=== PATIENT | female | born 1960 | race Caucasian/White ===

== ENCOUNTER 2020-01-13 08:55 | Inpatient (IN) | payer MEDICARE, MEDICAID, SELFPAY ==
[2020-01-13] VITALS (25 sets, daily range): BP systolic 100–147; BP diastolic 56–91; PULSE 96–110; RESP 17–27; TEMP 36.8–38.3; O2SAT 60–100
--- NOTE | ~2020-01-13 | XR_ITS ---
XR chest 1V portable 01/13/2020 09:44 Indication: Covid positive . Low oxygen saturations. Procedure: AP portable chest Comparison: Comparison to multiple prior studies sequentially, with oldest reviewed study dated 06/17. Findings: Bilateral mixed interstitial and airspace disease. No pleural effusion or pneumothorax. The re is atherosclerosis of the aorta. No acute osseous abnormality. Impression: 1: Mixed bilateral interstitial and airspace disease which may represents pneumonia or edema. Reviewed, dictated and finalized at location A. Impression: 1: Mixed bilateral interstitial and airspace disease which may represents pneum onia or edema.
--- NOTE | ~2020-01-13 | XR_ITS ---
EXAMINATION: XR chest 1V portable DATE: 01/21/2020 05:53 INDICATION: COVID positive. Hypoxia. Pulmonary infiltrates. TECHNIQUE: frontal view of the chest was obtained. COMPARISON: Chest radiograph dated 01/13/2020 FINDINGS: Diffuse increase in diffuse bilateral airspace opacities consistent with pneumonia. No pleural effusi on or pneumothorax. The cardiomediastinal silhouette is normal. Severe right glenohumeral osteoarthri tis. Mild lumbar levocurvature with moderate to severe spondylosis. IMPRESSION: 1. Diffuse bilateral airspace disease consistent with pneumonia with differential including pulmonary edema. Reviewed, dictated and finalized at location A. IMPRESSION: 1. Diffuse bilateral airspace disease consistent with pneumonia with differenti al including pulmonary edema.
--- NOTE | 2020-01-13 09:15 | ECG_ITS ---
Measurements Intervals [place] Rate: 64 P: 46 ME: 197 QRS: 128 QRSD: 97 T: 91 QT: 394 QTc: 408 Interpretive Statements SINUS RHYTHM RIGHT AXIS DEVIATION INCOMPLETE RIGHT BUNDLE BRANCH BLOCK BORDERLINE T WAVE ABNORMALITY- ANTERIOR LEADS BASELINE ARTIFACT- I, II, III, AVR, AVL, AVF, V1, V4-V6 BORDERLINE ECG Electronically Signed On 01-13-2020 10:17:57 CDT by Usman Roldan D.O.
--- NOTE | 2020-01-13 09:30 | PC.NURSE ---
Pt sent in from [facility] completely saturated in urine, depend brief was dark brown from urine saturation. Pt's gown wet from bottom of gown to nipple line all sheets and pads underneath patient are saturated and discolored with dark urine. This RN cleans patient up of urine, and give bed bath, with complete linen change. Pt has mottling on bottom, coccyx is red but blanches.
[2020-01-13 09:50] LABS: Basophils Percent Auto 0.1 % (0.2-1.2); Eosinophils Percent Auto 0.3 % (0-4.4); Hematocrit 36.3 % (37.0-47.0); Hemoglobin 11.8 g/dL (12.0-15.0); Immature Granulocyte Absolute 0.08 K/mm3 (0.00-0.031); Lymphocytes Absolute Auto 0.82 K/mm3 (0.9-3.2); Lymphocytes Percent Auto 10.3 % (18.3-44.2); Mean Corpuscular HGB Conc 32.5 g/dl (32-36); Mean Corpuscular Hemoglobin 29.6 pg (26-34); Mean Corpuscular Volume 91.2 fl (80-100); Mean Platelet Volume 11.5 fl (7.4-10.4); Monocytes Absolute Auto 0.7 K/mm3 (0.1-0.6); Monocytes Percent Auto 8.3 % (2.6-8.5); Neutrophils Absolute Auto 6.4 K/mm3 (1.3-6.7); Nucleated Red Blood Cells Perc 0.4 % (0.0-0.2); Platelet Count Result 324 k/mm3 (150-375); Red Blood Count 3.98 M/mm3 (4.2-5.4); Red Cell Distribution Width 13.5 % (11.5-14.5)
[2020-01-13 10:03] LABS: Lactic Acid 1.1 mmol/L (0.7-2.1)
[2020-01-13 10:04] LABS: Blood Urea Nitrogen 19 mg/dL (7-17); Calcium 8.7 mg/dL (8.4-10.2); Carbon Dioxide 23 mmol/L (22-30); Chloride 105 mmol/L (98-107); Estimated Glomerular Filt Rate > 60; Glucose 131 mg/dL (65-105); Potassium 3.6 mmol/L (3.4-5.0); Sodium 138 mmol/L (137-145)
[2020-01-13 10:18] LABS: Alanine Aminotransferase 33 U/L (4-35); Alkaline Phosphatase 92 U/L (38-126); Aspartate Amino Transferase 18 U/L (14-36); Bilirubin,Total 0.7 mg/dL (0.2-1.3); Lipase 96 U/L (23-300)
[2020-01-13 10:24] LABS: Add Urine Microscopic? YES; Appearance Urine Cloudy (Clear); Bacteria Urine 4+ /hpf; Bilirubin Urine Negative (Negative); Blood Urine 2+ (Negative); Color Urine Amber (Yellow); Glucose Urine UA Negative (Negative); Ketones Urine Trace mg/dL (Negative); Leukocyte Esterase Ur 3+ LEU/UL (Negative); Mucus Urine Rare /lpf; Nitrate Urine Positive (Negative); Protein Urine 3+ mg/dL (Negative); RBC Urine 21-50 /hpf (0-2); Squamous Epithelial Cell Urine Many /hpf (Few); WBC Urine >75 /hpf
--- NOTE | 2020-01-13 10:59 | PC.NURSE ---
This RN called [facility] and spoke to Erna, requesting patient's chart, meds, past medical history and documentation about postive covid-19 testing. Erna stated that she will talk to the RN and have her fax the information to us. This RN gave Erna our fax number.
--- NOTE | 2020-01-13 11:23 | PC.NURSE ---
Unable to verify patient med rec and past medical history, waiting for paperwork from [facility]. This RN was able to verify allergies with AKI Aguirre from [facility] via phone. Carla states that they will send paperwork via fax.
--- NOTE | 2020-01-13 11:44 | PC.NURSE ---
This RN rounded on patient and found Pt removed NC O2 and mask, patient sitting on room air at 60% w/ respirations of 33, patient placed back on 4L O2 by this RN, EDP was notified. EDP gave verbal order to get patient's O2 above 90%. O2 bumped to 6L NC. Pt sitting at 90% on 6L
--- NOTE | 2020-01-13 11:58 | ED.SOB ---
HPI - SOB/Dyspnea General Chief Complaint: Shortness of Breath/Dyspnea Stated Complaint: LOW OXYGEN SATURATION Time Seen by Provider: 01/13/20 09:13 History of Present Illness HPI Narrative: Patient is a 59-year-old female with history of left-sided weakness and expressive aphasia who presents with shortness of breath and hypoxia. Patient is from [facility]. She has history of being COVID positive. And is unknown what medication she has been receiving for this. Patient is a DNR and would not get intubated if she was in respiratory failure. She has a new O2 requirement of 4 L. Patient with O2 sats in the 70s without supplemental oxygen. Related Data Allergies Allergy/AdvReac Type Severity Reaction Status Date / Time Sulfa (Sulfonamide Allergy Mild TOPICAL Verified 01/13/20 11:11 Antibiotics) APPLICATION: REDNESS AND EDEMA OF AREA/FACE Review of Systems Review of Systems: ROS unobtainable: Yes unobtainable due to medical condition PMFSH Past Medical History Medical History (Updated 01/13/20 @ 16:43 by Salvador Zarate MD) COPD (chronic obstructive pulmonary disease) Hyperlipidemia Hypertension Seizures Stroke Surgical History Surgical History (Updated 01/13/20 @ 12:04 by Salvador Zarate MD) History of gastrostomy tube placement Social History Social History (Updated 01/13/20 @ 12:04 by Salvador Zarate MD) Social History: Lives in a retirement. Gender identity (if verbalized by the patient): Female Exam Narrative: Exam Narrative: GENERAL: Chronically ill-appearing, well-nourished, and in no acute distress. HEAD: Normocephalic, atraumatic. EYES: PERRL and EOMI. ENT: Mucous membranes moist. CHEST: Clear to auscultation. No respiratory distress. HEART: Regular rate and rhythm. Normal peripheral pulses. ABDOMEN: Soft, nontender, nondistended EXTREMITIES: Spastic left-sided hemiparesis with contractures left upper extremity. Moves right side well. SKIN: Warm, dry, no rash. NEURO: Awake and alert, expressive aphasia, will shake head yes and no to answer questions. Left-sided hemiparesis Course Course Emergency Course: Discussed case with Dr. Black who is caring for the patient in the retirement facility. Recommends that the patient be admitted to the hospital for IV antibiotics as there is been no interventions performed since patient was found to be cocaine positive. Additionally there is unknown at this time when the patient tested positive. Patient be started on IV antibiotics for both UTI and COVID pneumonia. Hospitalist would like patient re-swab for COVID. Vital Signs Vital signs: Vital Signs Temperature 99.8 F H 01/13/20 09:00 Pulse Rate 110 H 01/13/20 09:00 Respiratory Rate 22 H 01/13/20 09:00 Blood Pressure 141/56 H 01/13/20 09:00 Pulse Oximetry 82 L 01/13/20 09:00 Temperature 98.2 F 01/13/20 15:05 Pulse Rate 100 01/13/20 15:05 Respiratory Rate 200 H 01/13/20 15:05 Blood Pressure 131/91 H 01/13/20 15:05 Pulse Oximetry 100 01/13/20 15:05 MDM - SOB/Dyspnea Lab Data Result diagrams: 01/13/20 09:34 01/13/20 09:34 Labs: Lab Results 01/13/20 01/13/20 01/13/20 Range/Units 09:33 09:34 09:34 WBC 8.0 (4.5-10.0) K/mm3 RBC 3.98 L (4.2-5.4) M/mm3 Hgb 11.8 L (12.0-15.0) g/dL Hct 36.3 L (37.0-47.0) % MCV 91.2 (80-100) fl MCH 29.6 (26-34) pg MCHC 32.5 (32-36) g/dl RDW 13.5 (11.5-14.5) % Plt Count 324 (150-375) k/mm3 MPV 11.5 H (7.4-10.4) fl Immature Gran % (Auto) 1.0 H (0-0.5) % Neut % (Auto) 80.0 H (45.5-73.1) % Lymph % (Auto) 10.3 L (18.3-44.2) % [place] % (Auto) 8.3 (2.6-8.5) % Eos % (Auto) 0.3 (0-4.4) % Baso % (Auto) 0.1 L (0.2-1.2) % Lymph # (Auto) 0.82 L (0.9-3.2) K/mm3 [place] # (Auto) 0.7 H (0.1-0.6) K/mm3 Eos # (Auto) 0.0 (0-0.3) K/mm3 Baso # (Auto) 0.0 (0.0-0.1) K/mm3
--- NOTE | 2020-01-13 12:36 | PC.NURSE ---
Patient removed O2 again and right hand IV. Pt sitting in room with 2 puddles of blood on the floor, gown and arms. Pt cleaned of the blood, linens changed, bleeding stopped and repositioned in bed.
[2020-01-13 12:54] LABS: Base Excess ABG -2.7 mEq/l (+/-2.0); Carboxyhemoglobin 0.3 % THb (0-2.0); Fractional Inspired Oxygen 44 %; HCO3 ABG 20.7 mEq/l (22.0-26.0); Methemoglobin ABG 0.3 %THb (0-1.5); Oxygen Content ABG 16.3 %vol (16.0-22.0); Oxygen Saturation ABG 93.5 % (95.0-100.0); Oxyhemoglobin 91.7 % THb (90.0-100.0); PCO2 ABG 31.8 mmHg (35.0-45.0); PO2 ABG 64.5 mmHg (80.0-100.0); PO2 FiO2 Ratio Arterial Blood 1.47 %; Reduced Hemoglobin 7.7 %THb (0-5.0); Total Hemoglobin 12.6 g/dL (12.0-18.0); pH ABG 7.432 (7.350-7.450)
[2020-01-13 12:55] LABS: Device NASAL CANNULA; Modified Allen's Test Pass; Site Drawn RIGHT RADIAL
--- NOTE | 2020-01-13 13:48 | PC.NURSE ---
Pt 80% on 6L NC, titrated to 10L HFNC with saturation of 87%. Switched to 15L NRB and is currently satting 92%
--- NOTE | 2020-01-13 13:55 | PC.NURSE ---
This RN updated by Katerina PRABHAKAR, patient's oxygen saturation dropped to 80% on 6L NC. Pt was placed on 15L non rebreather by Katerina RN
--- NOTE | 2020-01-13 17:56 | ADMGEN ---
This patient, Margo Myrick, was admitted to [facility] S[facility] Room 329-01. Patient/family oriented to hospital policies and general routines including ID bracelet, bed and alarms, visiting hours, pain management, procedures, bathroom and other care routines, personal items, smoking policy, room service/diet, and visiting hours. Valuables list has been completed. Information on how to activate the Rapid Response Team has been discussed. Patient/Family are encouraged to report perceived risks to care and to ask questions if they do not understand what they are told or what they should do.
--- NOTE | 2020-01-13 19:28 | PM.IMHP ---
H&P: HPI History of Present Illness Chief complaint: covid 19/pnuemonia/hypoxia/UTI Narrative: This is a pleasantly demented 59 year old female with known history of COPD, HTN, and seizure disorder who presented to the hospital from [facility] with a complaint of shortness of breath and hypoxia. On arrival to the ER the patient was found to be saturating in the 70s without oxygen and was placed on a nonrebreather at 15L of oxygen. The patient is severely demented and on my encounter with her she keeps stating that she wants cheese . She does admit to feeling short of breath but denies any fever or cough. snf staff was contacted and confirmed that the patient did test positive for novel COVID-19 virus this past weekend. The patient also denies any dysuria, hematuria, abdominal pain, chest pain, wheezing, nausea, vomiting or diarrhea. In the ER tonight the patient was also found to have an abnormal urinalysis. The patient is a DNI code status and her CXR demonstrated miixed bilateral interstitial and airspace disease which may represents pneumonia or edema. No other valuable history is obtainable from the patient given her dementia. The patient has been retested in the ER today for Covid-19 despite just testing positive for Covid-19 this past weekend at the intermediate. Review of Systems Review of Systems: All systems reviewed & are unremarkable except as noted in HPI and below PMFSH Past Medical History Medical History COPD (chronic obstructive pulmonary disease) Hyperlipidemia Hypertension Seizures Stroke Surgical History Surgical History History of gastrostomy tube placement Social History Social History Social History: Lives in a intermediate. Smoking status: Former smoker Tobacco type: cigarettes Smoking end date: 10/01/14 Alcohol intake: former Substance use: never Gender identity (if verbalized by the patient): Female Spiritual care concerns: No Agree to blood products: Yes Comments Family medical history is unobtainable from the patient. Meds Home Medications and Allergies Home Medications Medication Instructions Recorded Confirmed Type acetaminophen [Tylenol 8 Hour] 650 mg PO Q6H PRN 01/13/20 01/13/20 History apixaban [Eliquis] 5 mg PO BID 01/13/20 01/13/20 History aripiprazole [Abilify] 5 mg PO DAILY 01/13/20 01/13/20 History atorvastatin [Lipitor] 40 mg PO HS 01/13/20 01/13/20 History baclofen 10 mg PO TID 01/13/20 01/13/20 History benzonatate 200 mg PO TID PRN 01/13/20 01/13/20 History bisacodyl 5 mg PO DAILY PRN 01/13/20 01/13/20 History calcium carbonate [Tums] 200 mg PO DAILY PRN 01/13/20 01/13/20 History dextromethorphan-guaifenesin 1 tablet PO Q12H PRN 01/13/20 01/13/20 History [Mucinex DM] dimethicone-petrolatum 1 applic TOPICAL QSHIFT 01/13/20 01/13/20 History docusate sodium [Colace] 100 mg PO BID 01/13/20 01/13/20 History duloxetine 60 mg PO DAILY 01/13/20 01/13/20 History escitalopram oxalate 5 mg PO DAILY 01/13/20 01/13/20 History fluticasone propionate 2 spray INTRANASAL DAILY 01/13/20 01/13/20 History guaifenesin 100 mg PO QID PRN 01/13/20 01/13/20 History ibuprofen 600 mg PO BID 01/13/20 01/13/20 History ibuprofen 600 mg PO TID PRN 01/13/20 01/13/20 History ipratropium-albuterol 3 ml INHALATION QID PRN 01/13/20 01/13/20 History levetiracetam [Keppra] 750 mg PO BID 01/13/20 01/13/20 History levothyroxine 25 mcg PO DAILY 01/13/20 01/13/20 History loratadine 10 mg PO DAILY 01/13/20 01/13/20 History multivitamin with minerals 1 tablet PO DAILY 01/13/20 01/13/20 History omeprazole 20 mg PO BID 01/13/20 01/13/20 History oxcarbazepine [Trileptal] 150 mg PO BID 04/28/20 04/28/20 History polyethylene glycol 3350 17 g PO DAILY 01/13/20 01/13/20 History polyvinyl alcohol [Artificial 1 drp OPHTHAL
[2020-01-13] MEDS: ALBUTEROL SULFATE (*SP) AEROSOL 1 PUFF 2 PUFF INHALATION (20:56)
[2020-01-13] MEDS: ALBUTEROL SULFATE (*SP) INHALER 1 PUFF (20:56)
[2020-01-13] MEDS: ACETAMINOPHEN 325 MG TABLET 650 MG PO (21:38)
[2020-01-13] MEDS: levETIRAcetam 250 MG TABLET 750 MG PO (21:39)
[2020-01-13] MEDS: SENNOSIDES 8.6 MG TABLET PO (21:39)
[2020-01-13] MEDS: BACLOFEN 10 MG TABLET PO (21:39)
[2020-01-13] MEDS: PANTOPRAZOLE 40 MG TABLET PO (21:39)
[2020-01-13] MEDS: TRAMADOL HCL 50 MG TABLET PO (21:39)
[2020-01-13] MEDS: OXcarbazepine 150 MG TABLET PO (21:39)
[2020-01-13] MEDS: ATORVASTATIN 40 MG TABLET PO (21:39)
[2020-01-13] MEDS: APIXABAN 5 MG TABLET PO (21:39)
[2020-01-13] MEDS: DOCUSATE SODIUM 100 MG CAPSULE PO (21:39)
[2020-01-14] VITALS (20 sets, daily range): BP systolic 105–140; BP diastolic 52–86; PULSE 92–106; RESP 18–22; TEMP 37–37.6; O2SAT 76–98
[2020-01-14] MEDS: BACLOFEN 10 MG TABLET PO ×3 (05:51→22:06)
[2020-01-14] MEDS: LEVOTHYROXINE SODIUM 25 MCG TABLET PO (05:52)
[2020-01-14 06:07] LABS: Basophils Percent Auto 0.1 % (0.2-1.2); Eosinophils Percent Auto 0.3 % (0-4.4); Hematocrit 35.3 % (37.0-47.0); Hemoglobin 11.2 g/dL (12.0-15.0); Immature Granulocyte Absolute 0.08 K/mm3 (0.00-0.031); Immature Granulocyte Percent A 0.9 % (0-0.5); Lymphocytes Absolute Auto 0.96 K/mm3 (0.9-3.2); Lymphocytes Percent Auto 10.4 % (18.3-44.2); Mean Corpuscular HGB Conc 31.7 g/dl (32-36); Mean Corpuscular Hemoglobin 29.6 pg (26-34); Mean Corpuscular Volume 93.4 fl (80-100); Mean Platelet Volume 10.5 fl (7.4-10.4); Monocytes Absolute Auto 0.5 K/mm3 (0.1-0.6); Monocytes Percent Auto 5.9 % (2.6-8.5); Neutrophils Absolute Auto 7.6 K/mm3 (1.3-6.7); Neutrophils Percent Auto 82.4 % (45.5-73.1); Platelet Count Result 417 k/mm3 (150-375); Red Blood Count 3.78 M/mm3 (4.2-5.4); Red Cell Distribution Width 13.8 % (11.5-14.5); White Blood Count 9.2 K/mm3 (4.5-10.0)
[2020-01-14 06:20] LABS: Blood Urea Nitrogen 17 mg/dL (7-17); Calcium 8.7 mg/dL (8.4-10.2); Carbon Dioxide 26 mmol/L (22-30); Chloride 106 mmol/L (98-107); Estimated Glomerular Filt Rate > 60; Glucose 110 mg/dL (65-105); Potassium 3.2 mmol/L (3.4-5.0); Sodium 140 mmol/L (137-145)
[2020-01-14] MEDS: DULOXETINE 60 MG CAPSULE.DR PO (08:30)
[2020-01-14] MEDS: APIXABAN 5 MG TABLET PO ×2 (08:30→20:08)
[2020-01-14] MEDS: DOCUSATE SODIUM 100 MG CAPSULE PO ×2 (08:30→17:20)
[2020-01-14] MEDS: ARIPIPRAZOLE 5 MG TABLET PO (08:30)
[2020-01-14] MEDS: ALBUTEROL SULFATE (*SP) AEROSOL 1 PUFF 2 PUFF INHALATION ×4 (08:30→19:10)
[2020-01-14] MEDS: POTASSIUM CHLORIDE 20 MEQ TABLET 40 MEQ PO (08:30)
[2020-01-14] MEDS: PANTOPRAZOLE 40 MG TABLET PO ×2 (08:31→20:09)
[2020-01-14] MEDS: polyethylene glycoL 3350 17 GM POWD.PACK PO (08:31)
[2020-01-14] MEDS: THERAPEUTIC MULTIVITAMINS/MINERALS TAB (*BKC) 1 TABLET PO (08:31)
[2020-01-14] MEDS: OXcarbazepine 150 MG TABLET PO ×2 (08:31→20:10)
[2020-01-14] MEDS: levETIRAcetam 250 MG TABLET 750 MG PO ×2 (08:32→20:09)
[2020-01-14] MEDS: LORATADINE 10 MG TABLET PO (08:33)
[2020-01-14] MEDS: ESCITALOPRAM OXALATE 5 MG TABLET PO (08:33)
[2020-01-14] MEDS: FLUTICASONE PROPIONATE 0.05% NA SPR 16 GM BTL (*BKC) 2 SPRAY NASAL (08:33)
[2020-01-14] MEDS: TRAMADOL HCL 50 MG TABLET PO ×2 (08:37→20:08)
--- NOTE | 2020-01-14 14:05 | PM.IMPN ---
Progress Note: A&P Assessment and Plan (1) Acute respiratory failure with hypoxia: Code(s): J96.01 - Acute respiratory failure with hypoxia Status: Acute Assessment and Plan: Appears to be secondary to Viral COVID-19 Pneumonia Continue supportive care with non-rebreather mask Wean is possible to 15 L by high-flow cannula Discussed grim prognosis with daughterGloria on 01/13 She wishes to proceed with transfer to IMCU and BiPAP if mother deteriorates but if no improvement after that to transition to comfort care (2) Pneumonia: Qualifiers: Laterality: bilateral Lung location: unspecified part of lung Pneumonia type: due to unspecified organism Qualified Code(s): J18.9 - Pneumonia, unspecified organism Code(s): J18.9 - Pneumonia, unspecified organism Status: Acute Assessment and Plan: Appears to be secondary to viral COVID-19 virus. Continue supportive care. Continue oxygen therapy. (3) COVID-19 virus infection: Code(s): U07.1 - COVID-19 Status: Acute Assessment and Plan: Continue supportive care. Aerosol isolation (4) Normocytic anemia: Code(s): D64.9 - Anemia, unspecified Status: Acute Assessment and Plan: Duration unclear F/u lab (5) Abnormal urinalysis: Code(s): R82.90 - Unspecified abnormal findings in urine Status: Acute Assessment and Plan: Ceftriaxone day 2 C/s pending (6) Dementia: Qualifiers: Dementia type: unspecified type Dementia behavioral disturbance: without behavioral disturbance Qualified Code(s): F03.90 - Unspecified dementia without behavioral disturbance Code(s): F03.90 - Unspecified dementia without behavioral disturbance Status: Acute Assessment and Plan: Ox2 Stable (7) COPD (chronic obstructive pulmonary disease): Qualifiers: COPD type: unspecified COPD Qualified Code(s): J44.9 - Chronic obstructive pulmonary disease, unspecified Code(s): J44.9 - Chronic obstructive pulmonary disease, unspecified Status: Chronic Assessment and Plan: Continue bronchodilators. (8) Seizures: Code(s): R56.9 - Unspecified convulsions Status: Chronic Assessment and Plan: Continue Keppra PO. (9) Dysphagia: Qualifiers: Dysphagia type: unspecified Qualified Code(s): R13.10 - Dysphagia, unspecified Code(s): R13.10 - Dysphagia, unspecified Status: Chronic Assessment and Plan: Thickened liquid and pureed diet. 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 Follow-up for COVID 19 with acute respiratory hypoxemic failure. Patient does not offer any complaints. Review of Systems Review of Systems: ROS unobtainable: Yes unobtainable due to medical condition Exam Narrative: Exam Narrative: HEENT: EOMI, PERRL, sclerae nonicteric, pharyngeal mucosa pink and intact NECK: No JVD, adenopathy, or thyromegaly CHEST: Scattered rhonchi. Mildly tachypneic.. HEART: NL S1/S2, regular, no murmur ABDOMEN: BS+, soft, nontender, no mass, no bruits EXTREMITIES: No cyanosis, edema, or clubbing NEUROLOGIC: CN intact and symmetric to inspection. MUSCULOSKELETAL: Tone and strength symmetric with generalized weakness. PSYCH: Alert. Oriented to person, place, but not to time ( 2021 ) Objective Data Vital Signs Vital Signs: Vital Signs - 24 hr 01/13/20 14:30 01/13/20 14:52 01/13/20 15:05 Temperature 98.2 F Pulse Rate 100 98 100 Respiratory Rate 19 17 20 Blood Pressure 132/81 128/80 131/91 H Pulse Oximetry 94 96 100 01/13/20 16:00 01/13/20 18:00 01/13/20 20:00 Temperature 98.4
[2020-01-14] MEDS: ATORVASTATIN 40 MG TABLET PO (20:08)
[2020-01-14] MEDS: SENNOSIDES 8.6 MG TABLET PO (20:10)
[2020-01-15] VITALS (18 sets, daily range): BP systolic 94–130; BP diastolic 63–80; PULSE 87–107; RESP 16–22; TEMP 36.7–37.9; O2SAT 90–100
[2020-01-15] MEDS: BACLOFEN 10 MG TABLET PO ×3 (05:41→22:01)
[2020-01-15] MEDS: LEVOTHYROXINE SODIUM 25 MCG TABLET PO (05:41)
[2020-01-15] MEDS: ALBUTEROL SULFATE (*SP) AEROSOL 1 PUFF 2 PUFF INHALATION ×4 (08:21→20:28)
[2020-01-15 08:37] LABS: Hematocrit 33.9 % (37.0-47.0); Hemoglobin 10.9 g/dL (12.0-15.0); Mean Corpuscular HGB Conc 32.2 g/dl (32-36); Mean Corpuscular Hemoglobin 29.8 pg (26-34); Mean Corpuscular Volume 92.6 fl (80-100); Mean Platelet Volume 10.6 fl (7.4-10.4); Platelet Count Result 345 k/mm3 (150-375); Red Blood Count 3.66 M/mm3 (4.2-5.4); Red Cell Distribution Width 13.7 % (11.5-14.5); White Blood Count 8.4 K/mm3 (4.5-10.0)
[2020-01-15 08:52] LABS: Blood Urea Nitrogen 14 mg/dL (7-17); Calcium 7.9 mg/dL (8.4-10.2); Carbon Dioxide 26 mmol/L (22-30); Chloride 103 mmol/L (98-107); Estimated CRCL calculation 9 ml/min; Estimated Glomerular Filt Rate > 60; Glucose 110 mg/dL (65-105); Potassium 3.5 mmol/L (3.4-5.0); Sodium 135 mmol/L (137-145)
[2020-01-15] MEDS: polyethylene glycoL 3350 17 GM POWD.PACK PO (09:32)
[2020-01-15] MEDS: levETIRAcetam 250 MG TABLET 750 MG PO ×2 (09:32→22:01)
[2020-01-15] MEDS: FLUTICASONE PROPIONATE 0.05% NA SPR 16 GM BTL (*BKC) 2 SPRAY NASAL (09:32)
[2020-01-15] MEDS: PANTOPRAZOLE 40 MG TABLET PO ×2 (09:32→22:01)
[2020-01-15] MEDS: THERAPEUTIC MULTIVITAMINS/MINERALS TAB (*BKC) 1 TABLET PO (09:32)
[2020-01-15] MEDS: OXcarbazepine 150 MG TABLET PO ×2 (09:33→22:02)
[2020-01-15] MEDS: LORATADINE 10 MG TABLET PO (09:33)
[2020-01-15] MEDS: DULOXETINE 60 MG CAPSULE.DR PO (09:33)
[2020-01-15] MEDS: ARIPIPRAZOLE 5 MG TABLET PO (09:33)
[2020-01-15] MEDS: ESCITALOPRAM OXALATE 5 MG TABLET PO (09:33)
[2020-01-15] MEDS: DOCUSATE SODIUM 100 MG CAPSULE PO ×2 (09:33→17:18)
[2020-01-15] MEDS: APIXABAN 5 MG TABLET PO ×2 (09:33→22:01)
[2020-01-15] MEDS: TRAMADOL HCL 50 MG TABLET PO ×2 (09:36→22:01)
[2020-01-15] MEDS: ACETAMINOPHEN 325 MG TABLET 650 MG PO ×2 (09:37→15:04)
--- NOTE | 2020-01-15 09:51 | PM.IMPN ---
Progress Note: A&P Assessment and Plan (1) Acute respiratory failure with hypoxia: Code(s): J96.01 - Acute respiratory failure with hypoxia Status: Acute Assessment and Plan: Appears to be secondary to Viral COVID-19 Pneumonia Continue supportive care with non-rebreather mask Wean oxygen as possible from current 15 L by high-flow cannula Discussed grim prognosis with daughterGloria on 01/13 She wishes to proceed with transfer to IMCU and BiPAP if mother deteriorates but if no improvement after that to transition to comfort care (2) Pneumonia: Qualifiers: Laterality: bilateral Lung location: unspecified part of lung Pneumonia type: due to unspecified organism Qualified Code(s): J18.9 - Pneumonia, unspecified organism Code(s): J18.9 - Pneumonia, unspecified organism Status: Acute Assessment and Plan: Appears to be secondary to COVID-19 virus. Continue supportive care. Continue oxygen therapy. (3) COVID-19 virus infection: Code(s): U07.1 - COVID-19 Status: Acute Assessment and Plan: Continue supportive care. Aerosol isolation (4) Normocytic anemia: Code(s): D64.9 - Anemia, unspecified Status: Acute Assessment and Plan: Duration unclear F/u lab (5) Abnormal urinalysis: Code(s): R82.90 - Unspecified abnormal findings in urine Status: Acute Assessment and Plan: Ceftriaxone day 3 C/s NEGATIVE for infection D/c ceftriaxone due to negative culture. (6) Dementia: Qualifiers: Dementia type: unspecified type Dementia behavioral disturbance: without behavioral disturbance Qualified Code(s): F03.90 - Unspecified dementia without behavioral disturbance Code(s): F03.90 - Unspecified dementia without behavioral disturbance Status: Acute Assessment and Plan: Ox2 Stable (7) COPD (chronic obstructive pulmonary disease): Qualifiers: COPD type: unspecified COPD Qualified Code(s): J44.9 - Chronic obstructive pulmonary disease, unspecified Code(s): J44.9 - Chronic obstructive pulmonary disease, unspecified Status: Chronic Assessment and Plan: Continue bronchodilators. (8) Seizures: Code(s): R56.9 - Unspecified convulsions Status: Chronic Assessment and Plan: Continue Keppra PO. (9) Dysphagia: Qualifiers: Dysphagia type: unspecified Qualified Code(s): R13.10 - Dysphagia, unspecified Code(s): R13.10 - Dysphagia, unspecified Status: Chronic Assessment and Plan: Thickened liquid and pureed diet. 01/13 daughter told RN that patient eats [employer] intermittently (10) Chronic anticoagulation: Code(s): Z79.01 - assisted (current) use of anticoagulants Status: Chronic Assessment and Plan: Unclear indication Continue Eliquis Monitor for s/sx bleeding Subjective Date/time seen: 01/15/20 09:51 Interval history: 01/14. Follow-up for COVID 19 with acute respiratory hypoxemic failure. Tired. SOB with any exertion. Poor appetite. Denied pain. Review of Systems Review of Systems: All systems reviewed & are unremarkable except as noted in HPI and below ROS unobtainable: Yes unobtainable due to medical condition Exam Narrative: Exam Narrative: HEENT: EOMI, PERRL, sclerae nonicteric, pharyngeal mucosa pink and intact NECK: No JVD, adenopathy, or thyromegaly CHEST: Scattered rhonchi. Mildly tachypneic.. HEART: NL S1/S2, regular, no murmur ABDOMEN: BS+, soft, nontender, no mass, no bruits EXTREMITIES: No cyanosis, edema, or clubbing NEUROLOGIC: CN intact and symmetric to inspection. MUSCULOSKELETAL: Tone and strength symmetric with generalized weakness. PSYCH: Alert. Oriented to person, place, and year ( ), but not to month. Objective Data Vital Signs Vital Signs: Vital Signs - 24 hr 01/14/20 10:39 01/14/20 11:00 01/14/20 12:00 Temperature 99.7 F H Pulse
[2020-01-15] MEDS: SENNOSIDES 8.6 MG TABLET PO (22:01)
[2020-01-15] MEDS: ATORVASTATIN 40 MG TABLET PO (22:01)
[2020-01-16] VITALS (14 sets, daily range): BP systolic 113–135; BP diastolic 70–82; PULSE 91–103; RESP 16–22; TEMP 36.5–37.3; O2SAT 85–100
[2020-01-16] MEDS: LEVOTHYROXINE SODIUM 25 MCG TABLET PO (06:05)
[2020-01-16] MEDS: BACLOFEN 10 MG TABLET PO ×3 (06:05→21:41)
[2020-01-16 06:06] LABS: D Dimer 2.33 ug/mL (<0.48); Hemoglobin 11.6 g/dL (12.0-15.0); Mean Corpuscular HGB Conc 32.2 g/dl (32-36); Mean Corpuscular Hemoglobin 29.9 pg (26-34); Mean Corpuscular Volume 92.8 fl (80-100); Mean Platelet Volume 10.7 fl (7.4-10.4); Platelet Count Result 288 k/mm3 (150-375); Red Blood Count 3.88 M/mm3 (4.2-5.4); Red Cell Distribution Width 13.6 % (11.5-14.5); White Blood Count 9.2 K/mm3 (4.5-10.0)
[2020-01-16 06:13] LABS: Blood Urea Nitrogen 14 mg/dL (7-17); Calcium 8.2 mg/dL (8.4-10.2); Carbon Dioxide 26 mmol/L (22-30); Chloride 101 mmol/L (98-107); Estimated CRCL calculation 68 ml/min; Estimated Glomerular Filt Rate > 60; Glucose 119 mg/dL (65-105); Lactate Dehydrogenase 990 U/L (313-618); Potassium 3.5 mmol/L (3.4-5.0); Sodium 134 mmol/L (137-145)
[2020-01-16 07:34] LABS: CRP 33.7 mg/dL (<1.0)
[2020-01-16] MEDS: ALBUTEROL SULFATE (*SP) AEROSOL 1 PUFF 2 PUFF INHALATION ×3 (07:56→15:30)
[2020-01-16] MEDS: DULOXETINE 60 MG CAPSULE.DR PO (09:13)
[2020-01-16] MEDS: ESCITALOPRAM OXALATE 5 MG TABLET PO (09:13)
[2020-01-16] MEDS: APIXABAN 5 MG TABLET PO ×2 (09:13→21:40)
[2020-01-16] MEDS: ARIPIPRAZOLE 5 MG TABLET PO (09:13)
[2020-01-16] MEDS: levETIRAcetam 250 MG TABLET 750 MG PO ×2 (09:13→21:40)
[2020-01-16] MEDS: polyethylene glycoL 3350 17 GM POWD.PACK PO (09:13)
[2020-01-16] MEDS: PANTOPRAZOLE 40 MG TABLET PO ×2 (09:14→21:41)
[2020-01-16] MEDS: FLUTICASONE PROPIONATE 0.05% NA SPR 16 GM BTL (*BKC) 2 SPRAY NASAL (09:14)
[2020-01-16] MEDS: TRAMADOL HCL 50 MG TABLET PO ×2 (09:14→21:40)
[2020-01-16] MEDS: OXcarbazepine 150 MG TABLET PO ×2 (09:14→21:41)
[2020-01-16] MEDS: THERAPEUTIC MULTIVITAMINS/MINERALS TAB (*BKC) 1 TABLET PO (09:14)
[2020-01-16] MEDS: LORATADINE 10 MG TABLET PO (09:14)
[2020-01-16] MEDS: DOCUSATE SODIUM 100 MG CAPSULE PO ×2 (09:14→16:39)
--- NOTE | 2020-01-16 11:22 | PM.IMPN ---
Progress Note: A&P Assessment and Plan (1) Acute respiratory failure with hypoxia: Code(s): J96.01 - Acute respiratory failure with hypoxia Status: Acute Assessment and Plan: Appears to be secondary to Viral COVID-19 Pneumonia Wean oxygen as possible from current 15 L by high-flow cannula Discussed poor prognosis with daughterGloria on 01/13 She wishes to proceed with transfer to IMCU and BiPAP if mother deteriorates but if no improvement after that to transition to comfort care (2) Pneumonia: Qualifiers: Laterality: bilateral Lung location: unspecified part of lung Pneumonia type: due to unspecified organism Qualified Code(s): J18.9 - Pneumonia, unspecified organism Code(s): J18.9 - Pneumonia, unspecified organism Status: Acute Assessment and Plan: Appears to be secondary to COVID-19 virus. Continue supportive care. Continue oxygen therapy. (3) COVID-19 virus infection: Code(s): U07.1 - COVID-19 Status: Acute Assessment and Plan: Continue supportive care. Aerosol isolation (4) Normocytic anemia: Code(s): D64.9 - Anemia, unspecified Status: Acute Assessment and Plan: Duration unclear F/u lab (5) Abnormal urinalysis: Code(s): R82.90 - Unspecified abnormal findings in urine Status: Acute Assessment and Plan: Ceftriaxone day 3 C/s NEGATIVE for infection D/c ceftriaxone due to negative culture. (6) Dementia: Qualifiers: Dementia type: unspecified type Dementia behavioral disturbance: without behavioral disturbance Qualified Code(s): F03.90 - Unspecified dementia without behavioral disturbance Code(s): F03.90 - Unspecified dementia without behavioral disturbance Status: Acute Assessment and Plan: Ox2 Stable (7) COPD (chronic obstructive pulmonary disease): Qualifiers: COPD type: unspecified COPD Qualified Code(s): J44.9 - Chronic obstructive pulmonary disease, unspecified Code(s): J44.9 - Chronic obstructive pulmonary disease, unspecified Status: Chronic Assessment and Plan: Continue bronchodilators. (8) Seizures: Code(s): R56.9 - Unspecified convulsions Status: Chronic Assessment and Plan: Continue Keppra PO. (9) Dysphagia: Qualifiers: Dysphagia type: unspecified Qualified Code(s): R13.10 - Dysphagia, unspecified Code(s): R13.10 - Dysphagia, unspecified Status: Chronic Assessment and Plan: Thickened liquid and pureed diet. 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 Tired. SOB with any exertion. Poor appetite. Denied pain. Review of Systems Review of Systems: All systems reviewed & are unremarkable except as noted in HPI and below Exam Narrative: Exam Narrative: HEENT: EOMI, PERRL, sclerae nonicteric, pharyngeal mucosa pink and intact NECK: No JVD, adenopathy, or thyromegaly CHEST: Scattered rhonchi. Mildly tachypneic.. HEART: NL S1/S2, regular, no murmur ABDOMEN: BS+, soft, nontender, no mass, no bruits EXTREMITIES: No cyanosis, edema, or clubbing NEUROLOGIC: CN intact and symmetric to inspection. MUSCULOSKELETAL: Tone and strength symmetric with generalized weakness. PSYCH: Alert. Oriented to person, place, and year ( ), but not to month. Objective Data Vital Signs Vital Signs: Vital Signs - 24 hr 01/15/20 12:00 01/15/20 13:30 01/15/20 14:25 Temperature 98.6 F Pulse Rate 104 H 91 Respiratory Rate 20 Blood Pressure 94/63 L Pulse Oximetry 94 95 01/15/20 16:00 01/15/20
[2020-01-16] MEDS: SENNOSIDES 8.6 MG TABLET PO (21:40)
[2020-01-16] MEDS: ATORVASTATIN 40 MG TABLET PO (21:41)
[2020-01-17] VITALS (15 sets, daily range): BP systolic 114–125; BP diastolic 68–86; PULSE 86–101; RESP 16–22; TEMP 36.1–37.2; O2SAT 90–97
[2020-01-17] MEDS: LEVOTHYROXINE SODIUM 25 MCG TABLET PO (06:12)
[2020-01-17] MEDS: BACLOFEN 10 MG TABLET PO ×3 (06:12→21:38)
[2020-01-17] MEDS: ONDANSETRON INJ 4 MG/2 ML VIAL IV PUSH (06:18)
[2020-01-17] MEDS: ACETAMINOPHEN 325 MG TABLET 650 MG PO (06:18)
[2020-01-17 07:10] LABS: Hematocrit 33.7 % (37.0-47.0); Mean Corpuscular HGB Conc 32.6 g/dl (32-36); Mean Corpuscular Hemoglobin 29.8 pg (26-34); Mean Corpuscular Volume 91.3 fl (80-100); Mean Platelet Volume 9.8 fl (7.4-10.4); Platelet Count Result 344 k/mm3 (150-375); Red Blood Count 3.69 M/mm3 (4.2-5.4); Red Cell Distribution Width 13.3 % (11.5-14.5); White Blood Count 7.5 K/mm3 (4.5-10.0)
[2020-01-17 07:35] LABS: Blood Urea Nitrogen 12 mg/dL (7-17); Calcium 8.3 mg/dL (8.4-10.2); Carbon Dioxide 26 mmol/L (22-30); Chloride 100 mmol/L (98-107); Estimated CRCL calculation 60 ml/min; Estimated Glomerular Filt Rate > 60; Glucose 108 mg/dL (65-105); Lactate Dehydrogenase 924 U/L (313-618); Potassium 3.5 mmol/L (3.4-5.0); Sodium 134 mmol/L (137-145)
[2020-01-17] MEDS: PANTOPRAZOLE 40 MG TABLET PO ×2 (08:54→21:38)
[2020-01-17] MEDS: THERAPEUTIC MULTIVITAMINS/MINERALS TAB (*BKC) 1 TABLET PO (08:54)
[2020-01-17] MEDS: TRAMADOL HCL 50 MG TABLET PO ×2 (08:54→21:38)
[2020-01-17] MEDS: DOCUSATE SODIUM 100 MG CAPSULE PO ×2 (08:54→16:53)
[2020-01-17] MEDS: ARIPIPRAZOLE 5 MG TABLET PO (08:55)
[2020-01-17] MEDS: APIXABAN 5 MG TABLET PO ×2 (08:55→21:38)
[2020-01-17] MEDS: LORATADINE 10 MG TABLET PO (08:55)
[2020-01-17] MEDS: levETIRAcetam 250 MG TABLET 750 MG PO ×2 (08:55→21:38)
[2020-01-17] MEDS: OXcarbazepine 150 MG TABLET PO ×2 (08:55→21:38)
[2020-01-17] MEDS: polyethylene glycoL 3350 17 GM POWD.PACK PO (08:55)
[2020-01-17] MEDS: ESCITALOPRAM OXALATE 5 MG TABLET PO (08:55)
[2020-01-17] MEDS: DULOXETINE 60 MG CAPSULE.DR PO (08:56)
[2020-01-17] MEDS: FLUTICASONE PROPIONATE 0.05% NA SPR 16 GM BTL (*BKC) 2 SPRAY NASAL (08:57)
[2020-01-17 09:04] LABS: CRP 35.2 mg/dL (<1.0)
[2020-01-17] MEDS: ALBUTEROL SULFATE (*SP) AEROSOL 1 PUFF 2 PUFF INHALATION ×4 (09:16→20:11)
--- NOTE | 2020-01-17 10:47 | PM.IMPN ---
Progress Note: A&P Assessment and Plan (1) Acute respiratory failure with hypoxia: Code(s): J96.01 - Acute respiratory failure with hypoxia Status: Acute Assessment and Plan: Appears to be secondary to Viral COVID-19 Pneumonia Wean oxygen as possible from current 7 L by high-flow cannula (down from 15L) Discussed poor prognosis with daughterGloria on 01/13 She wishes to proceed with transfer to IMCU and BiPAP if mother deteriorates but if no improvement after that to transition to comfort care However, patient appears to be improving. (2) Pneumonia: Qualifiers: Laterality: bilateral Lung location: unspecified part of lung Pneumonia type: due to unspecified organism Qualified Code(s): J18.9 - Pneumonia, unspecified organism Code(s): J18.9 - Pneumonia, unspecified organism Status: Acute Assessment and Plan: Appears to be secondary to COVID-19 virus. Continue supportive care. Continue oxygen therapy. (3) COVID-19 virus infection: Code(s): U07.1 - COVID-19 Status: Acute Assessment and Plan: Continue supportive care. Aerosol isolation (4) Normocytic anemia: Code(s): D64.9 - Anemia, unspecified Status: Acute Assessment and Plan: Duration unclear F/u lab (5) Abnormal urinalysis: Code(s): R82.90 - Unspecified abnormal findings in urine Status: Acute Assessment and Plan: Ceftriaxone day 3 C/s NEGATIVE for infection D/c ceftriaxone due to negative culture. (6) Dementia: Qualifiers: Dementia type: unspecified type Dementia behavioral disturbance: without behavioral disturbance Qualified Code(s): F03.90 - Unspecified dementia without behavioral disturbance Code(s): F03.90 - Unspecified dementia without behavioral disturbance Status: Acute Assessment and Plan: Ox2.5 Stable (7) COPD (chronic obstructive pulmonary disease): Qualifiers: COPD type: unspecified COPD Qualified Code(s): J44.9 - Chronic obstructive pulmonary disease, unspecified Code(s): J44.9 - Chronic obstructive pulmonary disease, unspecified Status: Chronic Assessment and Plan: Continue bronchodilators. (8) Seizures: Code(s): R56.9 - Unspecified convulsions Status: Chronic Assessment and Plan: Continue Keppra PO. (9) Dysphagia: Qualifiers: Dysphagia type: unspecified Qualified Code(s): R13.10 - Dysphagia, unspecified Code(s): R13.10 - Dysphagia, unspecified Status: Chronic Assessment and Plan: Thickened liquid and pureed diet. 01/13 daughter told RN that patient eats [employer] intermittently (10) Chronic anticoagulation: Code(s): Z79.01 - care home (current) use of anticoagulants Status: Chronic Assessment and Plan: Unclear indication Continue Eliquis Monitor for s/sx bleeding Subjective Date/time seen: 01/17/20 10:47 Interval history: 01/16 Follow-up for COVID 19 with acute respiratory hypoxemic failure. Tired. SOB with any exertion. Appetite improving. Denied pain. Review of Systems Review of Systems: All systems reviewed & are unremarkable except as noted in HPI and below Exam Narrative: Exam Narrative: HEENT: EOMI, PERRL, sclerae nonicteric, pharyngeal mucosa pink and intact NECK: No JVD, adenopathy, or thyromegaly CHEST: Scattered rhonchi. Mildly tachypneic.. HEART: NL S1/S2, regular, no murmur ABDOMEN: BS+, soft, nontender, no mass, no bruits EXTREMITIES: No cyanosis, edema, or clubbing NEUROLOGIC: CN intact and symmetric to inspection. MUSCULOSKELETAL: Tone and strength symmetric with generalized weakness. PSYCH: Alert. Oriented to person, place, and year ( ), but not to month. Objective Data Vital Signs Vital Signs: Vital Signs - 24 hr 01/16/20 12:00 01/16/20 14:00 01/16/20 16:00 Temperature 99.2 F Pulse Rate 103 H 97 96 Respiratory Rate 22 H Blood
[2020-01-17] MEDS: ATORVASTATIN 40 MG TABLET PO (21:38)
[2020-01-17] MEDS: SENNOSIDES 8.6 MG TABLET PO (21:38)
[2020-01-18] VITALS (15 sets, daily range): BP systolic 94–126; BP diastolic 60–79; PULSE 90–98; RESP 18–22; TEMP 36.3–37.1; O2SAT 88–100
[2020-01-18] MEDS: LEVOTHYROXINE SODIUM 25 MCG TABLET PO (05:36)
[2020-01-18] MEDS: BACLOFEN 10 MG TABLET PO ×3 (05:36→21:17)
[2020-01-18 06:15] LABS: Hematocrit 33.6 % (37.0-47.0); Mean Corpuscular HGB Conc 32.7 g/dl (32-36); Mean Corpuscular Volume 91.6 fl (80-100); Platelet Count Result 349 k/mm3 (150-375); Red Blood Count 3.67 M/mm3 (4.2-5.4); Red Cell Distribution Width 13.4 % (11.5-14.5); White Blood Count 7.2 K/mm3 (4.5-10.0)
[2020-01-18 06:29] LABS: D Dimer 1.68 ug/mL (<0.48)
[2020-01-18 06:42] LABS: Blood Urea Nitrogen 12 mg/dL (7-17); Calcium 8.3 mg/dL (8.4-10.2); Carbon Dioxide 29 mmol/L (22-30); Chloride 99 mmol/L (98-107); Estimated CRCL calculation 60 ml/min; Estimated Glomerular Filt Rate > 60; Glucose 101 mg/dL (65-105); Lactate Dehydrogenase 882 U/L (313-618); Potassium 3.7 mmol/L (3.4-5.0); Sodium 133 mmol/L (137-145)
[2020-01-18 06:55] LABS: CRP 23.1 mg/dL (<1.0)
[2020-01-18] MEDS: ALBUTEROL SULFATE (*SP) AEROSOL 1 PUFF 2 PUFF INHALATION ×4 (08:10→20:28)
[2020-01-18] MEDS: DOCUSATE SODIUM 100 MG CAPSULE PO ×2 (09:03→17:54)
[2020-01-18] MEDS: levETIRAcetam 250 MG TABLET 750 MG PO ×2 (09:03→21:17)
[2020-01-18] MEDS: FLUTICASONE PROPIONATE 0.05% NA SPR 16 GM BTL (*BKC) 2 SPRAY NASAL (09:03)
[2020-01-18] MEDS: OXcarbazepine 150 MG TABLET PO ×2 (09:03→21:17)
[2020-01-18] MEDS: APIXABAN 5 MG TABLET PO ×2 (09:03→21:17)
[2020-01-18] MEDS: TRAMADOL HCL 50 MG TABLET PO ×2 (09:03→21:19)
[2020-01-18] MEDS: THERAPEUTIC MULTIVITAMINS/MINERALS TAB (*BKC) 1 TABLET PO (09:03)
[2020-01-18] MEDS: LORATADINE 10 MG TABLET PO (09:03)
[2020-01-18] MEDS: ARIPIPRAZOLE 5 MG TABLET PO (09:03)
[2020-01-18] MEDS: DULOXETINE 60 MG CAPSULE.DR PO (09:03)
[2020-01-18] MEDS: polyethylene glycoL 3350 17 GM POWD.PACK PO (09:03)
[2020-01-18] MEDS: PANTOPRAZOLE 40 MG TABLET PO ×2 (09:03→21:17)
[2020-01-18] MEDS: ESCITALOPRAM OXALATE 5 MG TABLET PO (09:03)
--- NOTE | 2020-01-18 15:09 | PM.IMPN ---
Progress Note: A&P Assessment and Plan (1) Acute respiratory failure with hypoxia: Code(s): J96.01 - Acute respiratory failure with hypoxia Status: Acute Assessment and Plan: Appears to be secondary to Viral COVID-19 Pneumonia Wean oxygen as possible from current 10 L by high-flow cannula However, based on inflammatory markers and oxygen requirements, she appears to be improving. (2) Pneumonia: Qualifiers: Laterality: bilateral Lung location: unspecified part of lung Pneumonia type: due to unspecified organism Qualified Code(s): J18.9 - Pneumonia, unspecified organism Code(s): J18.9 - Pneumonia, unspecified organism Status: Acute Assessment and Plan: Appears to be secondary to COVID-19 virus. Continue supportive care. Continue oxygen therapy. (3) COVID-19 virus infection: Code(s): U07.1 - COVID-19 Status: Acute Assessment and Plan: Continue supportive care. Aerosol isolation (4) Normocytic anemia: Code(s): D64.9 - Anemia, unspecified Status: Acute Assessment and Plan: Duration unclear F/u lab (5) Abnormal urinalysis: Code(s): R82.90 - Unspecified abnormal findings in urine Status: Acute Assessment and Plan: Ceftriaxone day 3 C/s NEGATIVE for infection D/c ceftriaxone due to negative culture. (6) Dementia: Qualifiers: Dementia type: unspecified type Dementia behavioral disturbance: without behavioral disturbance Qualified Code(s): F03.90 - Unspecified dementia without behavioral disturbance Code(s): F03.90 - Unspecified dementia without behavioral disturbance Status: Acute Assessment and Plan: Ox2.5 Stable (7) COPD (chronic obstructive pulmonary disease): Qualifiers: COPD type: unspecified COPD Qualified Code(s): J44.9 - Chronic obstructive pulmonary disease, unspecified Code(s): J44.9 - Chronic obstructive pulmonary disease, unspecified Status: Chronic Assessment and Plan: Continue bronchodilators. (8) Seizures: Code(s): R56.9 - Unspecified convulsions Status: Chronic Assessment and Plan: Continue Keppra PO. (9) Dysphagia: Qualifiers: Dysphagia type: unspecified Qualified Code(s): R13.10 - Dysphagia, unspecified Code(s): R13.10 - Dysphagia, unspecified Status: Chronic Assessment and Plan: Thickened liquid and pureed diet. 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 Tired. SOB with any exertion. Appetite improving. Denied pain. Review of Systems Review of Systems: All systems reviewed & are unremarkable except as noted in HPI and below Exam Narrative: Exam Narrative: HEENT: EOMI, PERRL, sclerae nonicteric, pharyngeal mucosa pink and intact NECK: No JVD, adenopathy, or thyromegaly CHEST: Scattered rhonchi. Mildly tachypneic.. HEART: NL S1/S2, regular, no murmur ABDOMEN: BS+, soft, nontender, no mass, no bruits EXTREMITIES: No cyanosis, edema, or clubbing NEUROLOGIC: CN intact and symmetric to inspection. MUSCULOSKELETAL: Tone and strength symmetric with generalized weakness. PSYCH: Alert. Oriented to person, place, and year ( ), but not to month. Objective Data Vital Signs Vital Signs: Vital Signs - 24 hr 01/17/20 16:00 01/17/20 18:00 01/17/20 20:00 Temperature 98.3 F Pulse Rate 94 98 100 Respiratory Rate 16 Blood Pressure 125/85 Pulse Oximetry 91 01/17/20 20:14 01/17/20 22:00 01/18/20 00:00 Temperature 97.0 F L Pulse Rate 86 98 Respiratory Rate 22 H Blood P
[2020-01-18] MEDS: SENNOSIDES 8.6 MG TABLET PO (21:17)
[2020-01-18] MEDS: ATORVASTATIN 40 MG TABLET PO (21:17)
[2020-01-19] VITALS (11 sets, daily range): BP systolic 104–133; BP diastolic 58–92; PULSE 89–97; RESP 18–22; TEMP 36.4–37.7; O2SAT 84–100
[2020-01-19] MEDS: LEVOTHYROXINE SODIUM 25 MCG TABLET PO (05:17)
[2020-01-19] MEDS: BACLOFEN 10 MG TABLET PO ×3 (05:17→22:21)
[2020-01-19 05:53] LABS: Hematocrit 32.2 % (37.0-47.0); Hemoglobin 10.5 g/dL (12.0-15.0); Mean Corpuscular HGB Conc 32.6 g/dl (32-36); Mean Corpuscular Hemoglobin 29.7 pg (26-34); Mean Platelet Volume 9.8 fl (7.4-10.4); Platelet Count Result 420 k/mm3 (150-375); Red Blood Count 3.54 M/mm3 (4.2-5.4); Red Cell Distribution Width 13.2 % (11.5-14.5); White Blood Count 7.7 K/mm3 (4.5-10.0)
[2020-01-19 06:00] LABS: D Dimer 1.59 ug/mL (<0.48)
[2020-01-19 06:02] LABS: Blood Urea Nitrogen 11 mg/dL (7-17); Calcium 8.1 mg/dL (8.4-10.2); Carbon Dioxide 30 mmol/L (22-30); Chloride 97 mmol/L (98-107); Estimated CRCL calculation 60 ml/min; Estimated Glomerular Filt Rate > 60; Glucose 108 mg/dL (65-105); Lactate Dehydrogenase 779 U/L (313-618); Potassium 3.5 mmol/L (3.4-5.0); Sodium 134 mmol/L (137-145)
[2020-01-19 06:15] LABS: CRP 20.5 mg/dL (<1.0)
[2020-01-19] MEDS: ALBUTEROL SULFATE (*SP) AEROSOL 1 PUFF 2 PUFF INHALATION ×4 (08:25→20:44)
[2020-01-19] MEDS: DULOXETINE 60 MG CAPSULE.DR PO (08:36)
[2020-01-19] MEDS: ESCITALOPRAM OXALATE 5 MG TABLET PO (08:36)
[2020-01-19] MEDS: APIXABAN 5 MG TABLET PO ×2 (08:36→20:57)
[2020-01-19] MEDS: ARIPIPRAZOLE 5 MG TABLET PO (08:36)
[2020-01-19] MEDS: DOCUSATE SODIUM 100 MG CAPSULE PO ×2 (08:36→17:45)
[2020-01-19] MEDS: THERAPEUTIC MULTIVITAMINS/MINERALS TAB (*BKC) 1 TABLET PO (08:37)
[2020-01-19] MEDS: OXcarbazepine 150 MG TABLET PO ×2 (08:37→20:57)
[2020-01-19] MEDS: LORATADINE 10 MG TABLET PO (08:37)
[2020-01-19] MEDS: PANTOPRAZOLE 40 MG TABLET PO ×2 (08:37→20:57)
[2020-01-19] MEDS: levETIRAcetam 250 MG TABLET 750 MG PO ×2 (08:38→20:57)
[2020-01-19] MEDS: TRAMADOL HCL 50 MG TABLET PO ×2 (08:38→20:57)
[2020-01-19] MEDS: polyethylene glycoL 3350 17 GM POWD.PACK PO (08:38)
[2020-01-19] MEDS: FLUTICASONE PROPIONATE 0.05% NA SPR 16 GM BTL (*BKC) 2 SPRAY NASAL (08:39)
--- NOTE | 2020-01-19 09:49 | PM.IMPN ---
Progress Note: A&P Assessment and Plan (1) Acute respiratory failure with hypoxia: Code(s): J96.01 - Acute respiratory failure with hypoxia Status: Acute Assessment and Plan: Appears to be secondary to Viral COVID-19 Pneumonia Wean oxygen as possible from current 7 L by high-flow cannula However, based on inflammatory markers and oxygen requirements, she appears to be improving. She may return to [place] when off high flow oxygen. (2) Pneumonia: Qualifiers: Laterality: bilateral Lung location: unspecified part of lung Pneumonia type: due to unspecified organism Qualified Code(s): J18.9 - Pneumonia, unspecified organism Code(s): J18.9 - Pneumonia, unspecified organism Status: Acute Assessment and Plan: Appears to be secondary to COVID-19 virus. Continue supportive care. Continue oxygen therapy. (3) COVID-19 virus infection: Code(s): U07.1 - COVID-19 Status: Acute Assessment and Plan: Continue supportive care. Aerosol isolation (4) Normocytic anemia: Code(s): D64.9 - Anemia, unspecified Status: Acute Assessment and Plan: Duration unclear F/u lab (5) Abnormal urinalysis: Code(s): R82.90 - Unspecified abnormal findings in urine Status: Acute Assessment and Plan: Completed 3 days Ceftriaxone C/s NEGATIVE for infection (6) Dementia: Qualifiers: Dementia behavioral disturbance: without behavioral disturbance Dementia type: unspecified type Qualified Code(s): F03.90 - Unspecified dementia without behavioral disturbance Code(s): F03.90 - Unspecified dementia without behavioral disturbance Status: Acute Assessment and Plan: Ox2.5 Stable at her baseline (7) COPD (chronic obstructive pulmonary disease): Qualifiers: COPD type: unspecified COPD Qualified Code(s): J44.9 - Chronic obstructive pulmonary disease, unspecified Code(s): J44.9 - Chronic obstructive pulmonary disease, unspecified Status: Chronic Assessment and Plan: Continue bronchodilators. (8) Seizures: Code(s): R56.9 - Unspecified convulsions Status: Chronic Assessment and Plan: Continue Keppra PO. (9) Dysphagia: Qualifiers: Dysphagia type: unspecified Qualified Code(s): R13.10 - Dysphagia, unspecified Code(s): R13.10 - Dysphagia, unspecified Status: Chronic Assessment and Plan: Thickened liquid and pureed diet. 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 Tired. SOB with any exertion. Tolerating diet. Chronic left side weakness. (Bed to wheelchair bound at [place]) Aching LUE, LLE. No sweling. Constipated. Denied bleeding, dysuria. Review of Systems Review of Systems: All systems reviewed & are unremarkable except as noted in HPI and below Exam Narrative: Exam Narrative: HEENT: EOMI, PERRL, sclerae nonicteric, pharyngeal mucosa pink and intact NECK: No JVD, adenopathy, or thyromegaly CHEST: Scattered rhonchi. Mildly tachypneic.. HEART: NL S1/S2, regular, no murmur ABDOMEN: BS+, soft, nontender, no mass, no bruits EXTREMITIES: No cyanosis, edema, or clubbing NEUROLOGIC: CN intact and symmetric to inspection. MUSCULOSKELETAL: Tone and strength with LUE weakness, left hand flexion contracture. LLE weakness. Generalized weakness. PSYCH: Alert. Oriented to person, place, and year ( ), but not to month. Objective Data Vital Signs Vital Signs: Vital Signs - 24 hr 01/18/20 10:00 01/18/20 12:00 01/18/20 14:00 Temperature 98.7 F 97.8 F Pulse Rate
[2020-01-19] MEDS: MAGNESIUM CITRATE 300 ML BTL 150 ML PO (13:16)
[2020-01-19] MEDS: ATORVASTATIN 40 MG TABLET PO (20:57)
[2020-01-20] VITALS (8 sets, daily range): BP systolic 100–115; BP diastolic 57–68; PULSE 84–100; RESP 16–20; TEMP 36.6–37.4; O2SAT 92–100
[2020-01-20 06:03] LABS: Hematocrit 36.8 % (37.0-47.0); Hemoglobin 11.8 g/dL (12.0-15.0); Mean Corpuscular HGB Conc 32.1 g/dl (32-36); Mean Corpuscular Hemoglobin 29.7 pg (26-34); Mean Corpuscular Volume 92.7 fl (80-100); Platelet Count Result 333 k/mm3 (150-375); Red Blood Count 3.97 M/mm3 (4.2-5.4); Red Cell Distribution Width 13.3 % (11.5-14.5); White Blood Count 8.4 K/mm3 (4.5-10.0)
[2020-01-20 08:03] LABS: Blood Urea Nitrogen 10 mg/dL (7-17); Calcium 8.1 mg/dL (8.4-10.2); Carbon Dioxide 35 mmol/L (22-30); Chloride 95 mmol/L (98-107); Estimated CRCL calculation 54 ml/min; Estimated Glomerular Filt Rate > 60; Glucose 100 mg/dL (65-105); Lactate Dehydrogenase 759 U/L (313-618); Potassium 3.5 mmol/L (3.4-5.0); Sodium 134 mmol/L (137-145)
[2020-01-20] MEDS: levETIRAcetam 250 MG TABLET 750 MG PO ×2 (08:29→21:40)
[2020-01-20] MEDS: OXcarbazepine 150 MG TABLET PO ×2 (08:29→21:40)
[2020-01-20] MEDS: PANTOPRAZOLE 40 MG TABLET PO ×2 (08:29→21:41)
[2020-01-20] MEDS: THERAPEUTIC MULTIVITAMINS/MINERALS TAB (*BKC) 1 TABLET PO (08:29)
[2020-01-20] MEDS: BACLOFEN 10 MG TABLET PO ×3 (08:30→21:41)
[2020-01-20] MEDS: APIXABAN 5 MG TABLET PO ×2 (08:30→21:39)
[2020-01-20] MEDS: LORATADINE 10 MG TABLET PO (08:30)
[2020-01-20] MEDS: ARIPIPRAZOLE 5 MG TABLET PO (08:30)
[2020-01-20] MEDS: ESCITALOPRAM OXALATE 5 MG TABLET PO (08:30)
[2020-01-20] MEDS: LEVOTHYROXINE SODIUM 25 MCG TABLET PO (08:30)
[2020-01-20] MEDS: DULOXETINE 60 MG CAPSULE.DR PO (08:30)
[2020-01-20] MEDS: TRAMADOL HCL 50 MG TABLET PO ×2 (08:32→21:39)
[2020-01-20] MEDS: ALBUTEROL SULFATE (*SP) AEROSOL 1 PUFF 2 PUFF INHALATION ×4 (09:09→21:06)
--- NOTE | 2020-01-20 17:26 | PM.IMPN ---
Progress Note: A&P Assessment and Plan (1) Acute respiratory failure with hypoxia: Code(s): J96.01 - Acute respiratory failure with hypoxia Status: Acute Assessment and Plan: Appears to be secondary to Viral COVID-19 Pneumonia Wean oxygen as possible from current 8 L by high-flow cannula However, based on inflammatory markers and oxygen requirements, she appears to be improving. She may return to [place] when off high flow oxygen. Recheck chest x-ray a.m. 01/20 (2) Pneumonia: Qualifiers: Laterality: bilateral Lung location: unspecified part of lung Pneumonia type: due to unspecified organism Qualified Code(s): J18.9 - Pneumonia, unspecified organism Code(s): J18.9 - Pneumonia, unspecified organism Status: Acute Assessment and Plan: Appears to be secondary to COVID-19 virus. Continue supportive care. Continue oxygen therapy. (3) COVID-19 virus infection: Code(s): U07.1 - COVID-19 Status: Acute Assessment and Plan: Continue supportive care. Aerosol isolation (4) Normocytic anemia: Code(s): D64.9 - Anemia, unspecified Status: Acute Assessment and Plan: Duration unclear F/u lab (5) Abnormal urinalysis: Code(s): R82.90 - Unspecified abnormal findings in urine Status: Acute Assessment and Plan: Completed 3 days Ceftriaxone C/s NEGATIVE for infection (6) Dementia: Qualifiers: Dementia type: unspecified type Dementia behavioral disturbance: without behavioral disturbance Qualified Code(s): F03.90 - Unspecified dementia without behavioral disturbance Code(s): F03.90 - Unspecified dementia without behavioral disturbance Status: Acute Assessment and Plan: Ox2.5 Stable at her baseline (7) COPD (chronic obstructive pulmonary disease): Qualifiers: COPD type: unspecified COPD Qualified Code(s): J44.9 - Chronic obstructive pulmonary disease, unspecified Code(s): J44.9 - Chronic obstructive pulmonary disease, unspecified Status: Chronic Assessment and Plan: Continue bronchodilators. (8) Seizures: Code(s): R56.9 - Unspecified convulsions Status: Chronic Assessment and Plan: Continue Keppra PO. (9) Dysphagia: Qualifiers: Dysphagia type: unspecified Qualified Code(s): R13.10 - Dysphagia, unspecified Code(s): R13.10 - Dysphagia, unspecified Status: Chronic Assessment and Plan: Thickened liquid and pureed diet. 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 Tired. SOB with any exertion still. Appetite fair. Chronic left side weakness. (Bed to wheelchair bound at [place]) Aching LUE, LLE. No sweling. Denied bleeding, dysuria. Exam Narrative: Exam Narrative: Blood pressure 102/68 pulse is 100 saturating 100% but on a L high-flow HEENT: PERRL, sclerae nonicteric, NECK: No JVD, CHEST: Scattered rhonchi. Mildly tachypneic.. HEART: NL S1/S2, regular, no murmur ABDOMEN: BS+, soft, nontender EXTREMITIES: No edema, NEUROLOGIC: CN intact and symmetric to inspection. 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 Pleasant Objective Data Vital Signs Vital Signs: Vital Signs - 24 hr 01/19/20 18:00 01/19/20 18:14 01/19/20 20:44 Temperature 37.7 C H Pulse Rate 89 Respiratory Rate 22 H Blood Pressure 112/64 Pulse Oximetry 91 84 L 91 01/19/20 22:00 01/20/20 02:00 01/20/20 06:00 Temperature 36.5 C 36.6 C 36.6 C Pulse Rate 89 88 84 Respiratory Rate 22 H 20 16 [place]
[2020-01-20] MEDS: POTASSIUM CHLORIDE 20 MEQ TABLET PO (17:38)
[2020-01-20] MEDS: DOCUSATE SODIUM 100 MG CAPSULE PO (17:38)
[2020-01-20] MEDS: SENNOSIDES 8.6 MG TABLET PO (21:39)
[2020-01-20] MEDS: ATORVASTATIN 40 MG TABLET PO (21:40)
[2020-01-21] VITALS (8 sets, daily range): BP systolic 102–115; BP diastolic 55–73; PULSE 86–98; RESP 18–22; TEMP 36.2–37.2; O2SAT 88–98; BMI 33.4
[2020-01-21] MEDS: BACLOFEN 10 MG TABLET PO ×3 (06:23→21:47)
[2020-01-21] MEDS: LEVOTHYROXINE SODIUM 25 MCG TABLET PO (06:23)
[2020-01-21] MEDS: ESCITALOPRAM OXALATE 5 MG TABLET PO (08:00)
[2020-01-21] MEDS: PANTOPRAZOLE 40 MG TABLET PO ×2 (08:00→21:28)
[2020-01-21] MEDS: APIXABAN 5 MG TABLET PO ×2 (08:00→21:27)
[2020-01-21] MEDS: OXcarbazepine 150 MG TABLET PO ×2 (08:00→21:28)
[2020-01-21] MEDS: levETIRAcetam 250 MG TABLET 750 MG PO ×2 (08:00→21:27)
[2020-01-21] MEDS: DULOXETINE 60 MG CAPSULE.DR PO (08:00)
[2020-01-21] MEDS: LORATADINE 10 MG TABLET PO (08:02)
[2020-01-21] MEDS: THERAPEUTIC MULTIVITAMINS/MINERALS TAB (*BKC) 1 TABLET PO (08:02)
[2020-01-21] MEDS: ARIPIPRAZOLE 5 MG TABLET PO (08:02)
[2020-01-21] MEDS: DOCUSATE SODIUM 100 MG CAPSULE PO (08:02)
[2020-01-21] MEDS: FLUTICASONE PROPIONATE 0.05% NA SPR 16 GM BTL (*BKC) 2 SPRAY NASAL (08:28)
[2020-01-21] MEDS: ALBUTEROL SULFATE (*SP) AEROSOL 1 PUFF 2 PUFF INHALATION ×4 (08:48→20:24)
[2020-01-21] MEDS: TRAMADOL HCL 50 MG TABLET PO ×2 (12:49→21:46)
--- NOTE | 2020-01-21 17:20 | PM.IMPN ---
Progress Note: A&P Assessment and Plan (1) Acute respiratory failure with hypoxia: Code(s): J96.01 - Acute respiratory failure with hypoxia Status: Acute Assessment and Plan: secondary to Viral COVID-19 Pneumonia Wean oxygen as possible from current 8 L by high-flow cannula However, based on inflammatory markers and oxygen requirements, she appears to be improving. She may return to [place] when off high flow oxygen. chest x-ray this am still diffuse infiltrates (2) Pneumonia: Qualifiers: Laterality: bilateral Lung location: unspecified part of lung Pneumonia type: due to unspecified organism Qualified Code(s): J18.9 - Pneumonia, unspecified organism Code(s): J18.9 - Pneumonia, unspecified organism Status: Acute Assessment and Plan: secondary to COVID-19 virus. Continue supportive care. Continue oxygen therapy. (3) COVID-19 virus infection: Code(s): U07.1 - COVID-19 Status: Acute Assessment and Plan: Continue supportive care. Aerosol isolation (4) Normocytic anemia: Code(s): D64.9 - Anemia, unspecified Status: Acute Assessment and Plan: Duration unclear F/u lab (5) Abnormal urinalysis: Code(s): R82.90 - Unspecified abnormal findings in urine Status: Acute Assessment and Plan: Completed 3 days Ceftriaxone C/s NEGATIVE for infection (6) Dementia: Qualifiers: Dementia type: unspecified type Dementia behavioral disturbance: without behavioral disturbance Qualified Code(s): F03.90 - Unspecified dementia without behavioral disturbance Code(s): F03.90 - Unspecified dementia without behavioral disturbance Status: Acute Assessment and Plan: Ox2.5 Stable at her baseline (7) COPD (chronic obstructive pulmonary disease): Qualifiers: COPD type: unspecified COPD Qualified Code(s): J44.9 - Chronic obstructive pulmonary disease, unspecified Code(s): J44.9 - Chronic obstructive pulmonary disease, unspecified Status: Chronic Assessment and Plan: Continue bronchodilators. (8) Seizures: Code(s): R56.9 - Unspecified convulsions Status: Chronic Assessment and Plan: Continue Keppra PO. (9) Dysphagia: Qualifiers: Dysphagia type: unspecified Qualified Code(s): R13.10 - Dysphagia, unspecified Code(s): R13.10 - Dysphagia, unspecified Status: Chronic Assessment and Plan: Thickened liquid and pureed diet. 01/13 daughter told RN that patient eats [employer] intermittently (10) Chronic anticoagulation: Code(s): Z79.01 - snf (current) use of anticoagulants Status: Chronic Assessment and Plan: Unclear indication but continue for dvt prophylaxis especially with covid hypercoaguable state Continue Eliquis Monitor for s/sx bleeding Subjective Date/time seen: 01/21/20 17:20 Interval history: 5/6 Follow-up for COVID 19 with acute respiratory hypoxemic failure. Tired. SOB with any exertion still. Appetite fair. Chronic left side weakness. (Bed to wheelchair bound at [place]) Denied bleeding, dysuria. Exam Narrative: Exam Narrative: Blood pressure 106/68 pulse is 92 saturating 100% but on a L high-flow 8L HEENT: PERRL, sclerae nonicteric, NECK: No JVD, CHEST: Scattered rhonchi. Mildly tachypneic.. HEART: NL S1/S2, regular, no murmur ABDOMEN: BS+, soft, nontender EXTREMITIES: No edema, NEUROLOGIC: CN intact and symmetric to inspection. 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 Pleasant Objective Data Vital Signs Vital Signs: Vital Signs - 24 hr 01/20/20 18:00 01/20/20 21:08 01/20/20 22:00 Temperature 37.4 C 36.7 C Pulse Rate 90 93 91 Respiratory Rate 18 20 Blood Pressure 113/61 100/57 L Pulse Oximetry 92 92 97 01/21/20 02:00 01/21/20 06:00 01/21/20 08:00 Temperature 36.2 C L 36.3 C L Pu
[2020-01-21] MEDS: ATORVASTATIN 40 MG TABLET PO (21:27)
[2020-01-22] VITALS (14 sets, daily range): BP systolic 97–132; BP diastolic 59–70; PULSE 80–103; RESP 16–24; TEMP 36.2–37.6; O2SAT 83–96
[2020-01-22] MEDS: ACETAMINOPHEN 325 MG TABLET 650 MG PO ×2 (03:02→16:18)
[2020-01-22] MEDS: BACLOFEN 10 MG TABLET PO ×3 (06:14→21:58)
[2020-01-22] MEDS: LEVOTHYROXINE SODIUM 25 MCG TABLET PO (06:14)
[2020-01-22 06:25] LABS: Basophils Percent Auto 0.3 % (0.2-1.2); Eosinophils Absolute Auto 0.1 K/mm3 (0-0.3); Eosinophils Percent Auto 1.5 % (0-4.4); Hematocrit 31.4 % (37.0-47.0); Hemoglobin 10.1 g/dL (12.0-15.0); Immature Granulocyte Absolute 0.03 K/mm3 (0.00-0.031); Immature Granulocyte Percent A 0.4 % (0-0.5); Lymphocytes Absolute Auto 1.39 K/mm3 (0.9-3.2); Lymphocytes Percent Auto 17.5 % (18.3-44.2); Mean Corpuscular HGB Conc 32.2 g/dl (32-36); Mean Corpuscular Hemoglobin 29.8 pg (26-34); Mean Corpuscular Volume 92.6 fl (80-100); Mean Platelet Volume 9.8 fl (7.4-10.4); Monocytes Absolute Auto 0.8 K/mm3 (0.1-0.6); Monocytes Percent Auto 9.4 % (2.6-8.5); Neutrophils Absolute Auto 5.6 K/mm3 (1.3-6.7); Neutrophils Percent Auto 70.9 % (45.5-73.1); Platelet Count Result 531 k/mm3 (150-375); Red Blood Count 3.39 M/mm3 (4.2-5.4); Red Cell Distribution Width 13.4 % (11.5-14.5)
[2020-01-22 06:33] LABS: D Dimer 1.56 ug/mL (<0.48)
[2020-01-22 06:56] LABS: Blood Urea Nitrogen 8 mg/dL (7-17); CRP 13.8 mg/dL (<1.0); Calcium 8.1 mg/dL (8.4-10.2); Carbon Dioxide 32 mmol/L (22-30); Chloride 95 mmol/L (98-107); Estimated CRCL calculation 68 ml/min; Estimated Glomerular Filt Rate > 60; Glucose 102 mg/dL (65-105); Lactate Dehydrogenase 683 U/L (313-618); Potassium 4.1 mmol/L (3.4-5.0); Sodium 130 mmol/L (137-145)
[2020-01-22] MEDS: TRAMADOL HCL 50 MG TABLET PO ×2 (08:06→20:31)
[2020-01-22] MEDS: APIXABAN 5 MG TABLET PO ×2 (08:07→20:31)
[2020-01-22] MEDS: THERAPEUTIC MULTIVITAMINS/MINERALS TAB (*BKC) 1 TABLET PO (08:08)
[2020-01-22] MEDS: LORATADINE 10 MG TABLET PO (08:08)
[2020-01-22] MEDS: PANTOPRAZOLE 40 MG TABLET PO ×2 (08:08→20:31)
[2020-01-22] MEDS: OXcarbazepine 150 MG TABLET PO ×2 (08:08→20:31)
[2020-01-22] MEDS: ESCITALOPRAM OXALATE 5 MG TABLET PO (08:08)
[2020-01-22] MEDS: ARIPIPRAZOLE 5 MG TABLET PO (08:08)
[2020-01-22] MEDS: DULOXETINE 60 MG CAPSULE.DR PO (08:09)
[2020-01-22] MEDS: levETIRAcetam 250 MG TABLET 750 MG PO ×2 (08:09→20:31)
[2020-01-22] MEDS: FLUTICASONE PROPIONATE 0.05% NA SPR 16 GM BTL (*BKC) 2 SPRAY NASAL (08:10)
[2020-01-22] MEDS: ALBUTEROL SULFATE (*SP) AEROSOL 1 PUFF 2 PUFF INHALATION ×4 (08:42→21:11)
--- NOTE | 2020-01-22 18:29 | PM.IMPN ---
Progress Note: A&P Assessment and Plan (1) Acute respiratory failure with hypoxia: Code(s): J96.01 - Acute respiratory failure with hypoxia Status: Acute Assessment and Plan: secondary to Viral COVID-19 Pneumonia Wean oxygen as possible from current 8 L by high-flow cannula However, based on inflammatory markers and oxygen requirements, she appears to be improving, d dimer, crp and ldh all continue trending down. She may return to [place] when off high flow oxygen. chest x-ray this 01/20 still diffuse infiltrates (2) Pneumonia: Qualifiers: Laterality: bilateral Lung location: unspecified part of lung Pneumonia type: due to unspecified organism Qualified Code(s): J18.9 - Pneumonia, unspecified organism Code(s): J18.9 - Pneumonia, unspecified organism Status: Acute Assessment and Plan: secondary to COVID-19 virus. Continue supportive care. Continue oxygen therapy. (3) COVID-19 virus infection: Code(s): U07.1 - COVID-19 Status: Acute Assessment and Plan: Continue supportive care. Aerosol isolation (4) Normocytic anemia: Code(s): D64.9 - Anemia, unspecified Status: Acute Assessment and Plan: Duration unclear F/u lab no change (5) Abnormal urinalysis: Code(s): R82.90 - Unspecified abnormal findings in urine Status: Acute Assessment and Plan: Completed 3 days Ceftriaxone C/s NEGATIVE for infection (6) Dementia: Qualifiers: Dementia type: unspecified type Dementia behavioral disturbance: without behavioral disturbance Qualified Code(s): F03.90 - Unspecified dementia without behavioral disturbance Code(s): F03.90 - Unspecified dementia without behavioral disturbance Status: Acute Assessment and Plan: Ox2.5 Stable at her baseline (7) COPD (chronic obstructive pulmonary disease): Qualifiers: COPD type: unspecified COPD Qualified Code(s): J44.9 - Chronic obstructive pulmonary disease, unspecified Code(s): J44.9 - Chronic obstructive pulmonary disease, unspecified Status: Chronic Assessment and Plan: Continue bronchodilators. (8) Seizures: Code(s): R56.9 - Unspecified convulsions Status: Chronic Assessment and Plan: Continue Keppra PO. (9) Dysphagia: Qualifiers: Dysphagia type: unspecified Qualified Code(s): R13.10 - Dysphagia, unspecified Code(s): R13.10 - Dysphagia, unspecified Status: Chronic Assessment and Plan: Thickened liquid and pureed diet. 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 Tired. SOB with any exertion still. Appetite fair. Chronic left side weakness. (Bed to wheelchair bound at [place]) Denied bleeding, dysuria. I need to get out of this room all by myself Exam Narrative: Exam Narrative: Blood pressure 124/70 pulse is 96 saturating 94% but still on high-flow 8L HEENT: PERRL, sclerae nonicteric, NECK: No JVD, CHEST: Faint Scattered rhonchi. Mildly tachypneic.. HEART: NL S1/S2, regular, no murmur ABDOMEN: BS+, soft, nontender EXTREMITIES: No edema, NEUROLOGIC: CN intact and symmetric to inspection. 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 Pleasant Objective Data Vital Signs Vital Signs: Vital Signs - 24 hr 01/21/20 22:00 01/22/20 02:00 01/22/20 03:02 Temperature 37.2 C 37.6 C 37.6 C Pulse Rate 89 95 Respiratory Rate 20 20 Blood Pressure 102/55 L
[2020-01-22] MEDS: SENNOSIDES 8.6 MG TABLET PO (20:31)
[2020-01-22] MEDS: ATORVASTATIN 40 MG TABLET PO (20:31)
[2020-01-23] VITALS (9 sets, daily range): BP systolic 103–122; BP diastolic 56–65; PULSE 85–100; RESP 16–22; TEMP 36–36.8; O2SAT 90–97
[2020-01-23] MEDS: LEVOTHYROXINE SODIUM 25 MCG TABLET PO (05:59)
[2020-01-23] MEDS: BACLOFEN 10 MG TABLET PO ×3 (05:59→21:14)
[2020-01-23] MEDS: ALBUTEROL SULFATE (*SP) AEROSOL 1 PUFF 2 PUFF INHALATION ×4 (09:10→19:33)
--- NOTE | 2020-01-23 11:07 | PCNFU ---
Nutrition Follow-Up Complete: Inadequate Oral Intake as relates to pnuemonia as evidenced by poor po intake reported. Goal: Adequate intake of at least 50% of meals/supplements Progressing towards goal. We will continue current goal. Pt current nutrition is Pureed with Moderately thick liquids,Level 3. Nutrition recommendation:Agree Last recorded weight is 77.6 kg. Bowel Motility:+BM reported 5/6 Labs Reviewed:Na 130,Hct 31.4, Hgb 10.1 Meds Noted:Synthroid,MVI,Ultram. Additional Notes: Spoke with nursing today for nutrition follow up due to COVID 19 precautions. Patient has left sided weakness. Oral Intake-25% of meals which consisted of cream of wheat, eggs, applesauce,yogurt, coffee, milk and OJ. Nursing states she would recommend assist with meals as patient needed all drinks handed to her for breakfast. Diet supplements remain on trays of Ensure Enlive TID providing an additional 350 kcals and 20 gms protein. PO intake encouraged. Monitoring: RD will monitor every 3 days.
[2020-01-23] MEDS: APIXABAN 5 MG TABLET PO ×2 (13:50→21:14)
[2020-01-23] MEDS: DULOXETINE 60 MG CAPSULE.DR PO (13:51)
[2020-01-23] MEDS: ARIPIPRAZOLE 5 MG TABLET PO (13:51)
[2020-01-23] MEDS: DOCUSATE SODIUM 100 MG CAPSULE PO ×2 (13:51→17:46)
[2020-01-23] MEDS: ESCITALOPRAM OXALATE 5 MG TABLET PO (13:51)
[2020-01-23] MEDS: THERAPEUTIC MULTIVITAMINS/MINERALS TAB (*BKC) 1 TABLET PO (13:52)
[2020-01-23] MEDS: LORATADINE 10 MG TABLET PO (13:52)
[2020-01-23] MEDS: FLUTICASONE PROPIONATE 0.05% NA SPR 16 GM BTL (*BKC) 2 SPRAY NASAL (13:52)
[2020-01-23] MEDS: levETIRAcetam 250 MG TABLET 750 MG PO ×2 (13:52→21:15)
[2020-01-23] MEDS: OXcarbazepine 150 MG TABLET PO ×2 (13:53→21:15)
[2020-01-23] MEDS: PANTOPRAZOLE 40 MG TABLET PO ×2 (13:55→21:14)
[2020-01-23] MEDS: polyethylene glycoL 3350 17 GM POWD.PACK PO (13:55)
[2020-01-23] MEDS: TRAMADOL HCL 50 MG TABLET PO ×2 (13:55→21:14)
--- NOTE | 2020-01-23 15:44 | PM.IMPN ---
Progress Note: A&P Assessment and Plan (1) Acute respiratory failure with hypoxia: Code(s): J96.01 - Acute respiratory failure with hypoxia Status: Acute Assessment and Plan: secondary to Viral COVID-19 Pneumonia Wean oxygen as possible from current 7 L by high-flow cannula However, based on inflammatory markers and oxygen requirements, she appears to be improving, d dimer, crp and ldh all continue trending down and will repeat in am She may return to NH when off high flow oxygen. chest x-ray /6 still diffuse infiltrates (2) Pneumonia: Qualifiers: Laterality: bilateral Lung location: unspecified part of lung Pneumonia type: due to unspecified organism Qualified Code(s): J18.9 - Pneumonia, unspecified organism Code(s): J18.9 - Pneumonia, unspecified organism Status: Acute Assessment and Plan: secondary to COVID-19 virus. Continue supportive care. Continue oxygen therapy. (3) COVID-19 virus infection: Code(s): U07.1 - COVID-19 Status: Acute Assessment and Plan: Continue supportive care. Aerosol isolation (4) Normocytic anemia: Code(s): D64.9 - Anemia, unspecified Status: Acute Assessment and Plan: Duration unclear F/u lab no change (5) Abnormal urinalysis: Code(s): R82.90 - Unspecified abnormal findings in urine Status: Acute Assessment and Plan: Completed 3 days Ceftriaxone C/s NEGATIVE for infection (6) Dementia: Qualifiers: Dementia type: unspecified type Dementia behavioral disturbance: without behavioral disturbance Qualified Code(s): F03.90 - Unspecified dementia without behavioral disturbance Code(s): F03.90 - Unspecified dementia without behavioral disturbance Status: Acute Assessment and Plan: Ox2.5 Stable at her baseline (7) COPD (chronic obstructive pulmonary disease): Qualifiers: COPD type: unspecified COPD Qualified Code(s): J44.9 - Chronic obstructive pulmonary disease, unspecified Code(s): J44.9 - Chronic obstructive pulmonary disease, unspecified Status: Chronic Assessment and Plan: Continue bronchodilators. (8) Seizures: Code(s): R56.9 - Unspecified convulsions Status: Chronic Assessment and Plan: Continue Keppra PO. (9) Dysphagia: Qualifiers: Dysphagia type: unspecified Qualified Code(s): R13.10 - Dysphagia, unspecified Code(s): R13.10 - Dysphagia, unspecified Status: Chronic Assessment and Plan: Thickened liquid and pureed diet. 01/13 daughter told RN that patient eats [employer] intermittently (10) Chronic anticoagulation: Code(s): Z79.01 - intermediate (current) use of anticoagulants Status: Chronic Assessment and Plan: Unclear indication but continue for dvt prophylaxis especially with covid hypercoaguable state Continue Eliquis Monitor for s/sx bleeding Subjective Date/time seen: 01/23/20 15:44 Interval history: 01/22 Follow-up for COVID 19 with acute respiratory hypoxemic failure. Tired. SOB with any exertion still. Appetite fair. Chronic left side weakness. (Bed to wheelchair bound at [place]) Denied bleeding, dysuria. I need to get out of this room, do not like being all by myself Exam Narrative: Exam Narrative: Blood pressure 108/60 pulse is 86 saturating 92% but on high-flow 7L HEENT: PERRL, sclerae nonicteric, NECK: No JVD, CHEST: decreased bs. Mildly tachypneic.. HEART: NL S1/S2, regular, no murmur ABDOMEN: BS+, soft, nontender EXTREMITIES: No edema, NEUROLOGIC: CN intact and symmetric to inspection. 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 Pleasant Objective Data Vital Signs Vital Signs: Vital Signs - 24 hr 01/22/20 18:00 01/22/20 20:00 01/22/20 21:11 Temperature 36.2 C L Pulse Rate 98 89 Respiratory Rate 20 24 H Blood Pressur
[2020-01-23] MEDS: SENNOSIDES 8.6 MG TABLET PO (21:14)
[2020-01-23] MEDS: ATORVASTATIN 40 MG TABLET PO (21:15)
[2020-01-24] VITALS (11 sets, daily range): BP systolic 98–153; BP diastolic 52–84; PULSE 84–95; RESP 16–22; TEMP 36–36.6; O2SAT 91–97
[2020-01-24] MEDS: BACLOFEN 10 MG TABLET PO ×3 (05:43→21:10)
[2020-01-24] MEDS: LEVOTHYROXINE SODIUM 25 MCG TABLET PO (05:43)
[2020-01-24 07:40] LABS: Basophils Percent Auto 0.1 % (0.2-1.2); Eosinophils Absolute Auto 0.2 K/mm3 (0-0.3); Eosinophils Percent Auto 1.6 % (0-4.4); Hemoglobin 10.3 g/dL (12.0-15.0); Immature Granulocyte Absolute 0.05 K/mm3 (0.00-0.031); Immature Granulocyte Percent A 0.5 % (0-0.5); Lymphocytes Absolute Auto 1.33 K/mm3 (0.9-3.2); Lymphocytes Percent Auto 14.3 % (18.3-44.2); Mean Corpuscular HGB Conc 32.2 g/dl (32-36); Mean Corpuscular Hemoglobin 29.9 pg (26-34); Mean Corpuscular Volume 92.8 fl (80-100); Mean Platelet Volume 9.5 fl (7.4-10.4); Monocytes Absolute Auto 0.8 K/mm3 (0.1-0.6); Monocytes Percent Auto 8.5 % (2.6-8.5); Platelet Count Result 551 k/mm3 (150-375); Red Blood Count 3.45 M/mm3 (4.2-5.4); Red Cell Distribution Width 13.8 % (11.5-14.5); White Blood Count 9.3 K/mm3 (4.5-10.0)
[2020-01-24 07:52] LABS: D Dimer 1.43 ug/mL (<0.48)
[2020-01-24 08:19] LABS: Blood Urea Nitrogen 9 mg/dL (7-17); CRP 8.9 mg/dL (<1.0); Calcium 8.2 mg/dL (8.4-10.2); Carbon Dioxide 29 mmol/L (22-30); Chloride 97 mmol/L (98-107); Estimated CRCL calculation 60 ml/min; Estimated Glomerular Filt Rate > 60; Glucose 100 mg/dL (65-105); Lactate Dehydrogenase 637 U/L (313-618); Sodium 133 mmol/L (137-145)
[2020-01-24] MEDS: ALBUTEROL SULFATE (*SP) AEROSOL 1 PUFF 2 PUFF INHALATION ×4 (09:05→20:46)
[2020-01-24] MEDS: ARIPIPRAZOLE 5 MG TABLET PO (09:18)
[2020-01-24] MEDS: PANTOPRAZOLE 40 MG TABLET PO ×2 (09:18→21:09)
[2020-01-24] MEDS: levETIRAcetam 250 MG TABLET 750 MG PO ×2 (09:18→21:09)
[2020-01-24] MEDS: ESCITALOPRAM OXALATE 5 MG TABLET PO (09:18)
[2020-01-24] MEDS: DULOXETINE 60 MG CAPSULE.DR PO (09:19)
[2020-01-24] MEDS: APIXABAN 5 MG TABLET PO ×2 (09:19→21:09)
[2020-01-24] MEDS: LORATADINE 10 MG TABLET PO (09:19)
[2020-01-24] MEDS: THERAPEUTIC MULTIVITAMINS/MINERALS TAB (*BKC) 1 TABLET PO (09:19)
[2020-01-24] MEDS: DOCUSATE SODIUM 100 MG CAPSULE PO ×2 (09:20→17:33)
[2020-01-24] MEDS: polyethylene glycoL 3350 17 GM POWD.PACK PO (09:21)
[2020-01-24] MEDS: OXcarbazepine 150 MG TABLET PO ×2 (09:21→21:09)
[2020-01-24] MEDS: FLUTICASONE PROPIONATE 0.05% NA SPR 16 GM BTL (*BKC) 2 SPRAY NASAL (09:22)
[2020-01-24] MEDS: TRAMADOL HCL 50 MG TABLET PO ×2 (09:24→21:09)
--- NOTE | 2020-01-24 15:42 | PM.IMPN ---
Progress Note: A&P Assessment and Plan (1) Acute respiratory failure with hypoxia: Code(s): J96.01 - Acute respiratory failure with hypoxia Status: Acute Assessment and Plan: Secondary to Viral COVID-19 Pneumonia Continue oxygen pt is currently on 4 liters . Chest x-ray / still diffuse infiltrates (2) Pneumonia: Qualifiers: Laterality: bilateral Lung location: unspecified part of lung Pneumonia type: due to unspecified organism Qualified Code(s): J18.9 - Pneumonia, unspecified organism Code(s): J18.9 - Pneumonia, unspecified organism Status: Acute Assessment and Plan: Secondary to COVID-19 virus. Continue supportive care. Continue oxygen therapy. (3) COVID-19 virus infection: Code(s): U07.1 - COVID-19 Status: Acute Assessment and Plan: Continue supportive care. (4) Normocytic anemia: Code(s): D64.9 - Anemia, unspecified Status: Acute Assessment and Plan: Duration unclear (5) Abnormal urinalysis: Code(s): R82.90 - Unspecified abnormal findings in urine Status: Acute Assessment and Plan: Completed 3 days Ceftriaxone off abx now (6) Dementia: Qualifiers: Dementia behavioral disturbance: without behavioral disturbance Dementia type: unspecified type Qualified Code(s): F03.90 - Unspecified dementia without behavioral disturbance Code(s): F03.90 - Unspecified dementia without behavioral disturbance Status: Acute Assessment and Plan: Stable at her baseline (7) COPD (chronic obstructive pulmonary disease): Qualifiers: COPD type: unspecified COPD Qualified Code(s): J44.9 - Chronic obstructive pulmonary disease, unspecified Code(s): J44.9 - Chronic obstructive pulmonary disease, unspecified Status: Chronic Assessment and Plan: Continue bronchodilators. (8) Seizures: Code(s): R56.9 - Unspecified convulsions Status: Chronic Assessment and Plan: Continue Keppra PO. (9) Dysphagia: Qualifiers: Dysphagia type: unspecified Qualified Code(s): R13.10 - Dysphagia, unspecified Code(s): R13.10 - Dysphagia, unspecified Status: Chronic Assessment and Plan: Thickened liquid and pureed diet. 01/13 daughter told RN that patient eats [employer] intermittently (10) Chronic anticoagulation: Code(s): Z79.01 - bookie (current) use of anticoagulants Status: Chronic Assessment and Plan: Unclear indication but continue for anticoagulation Continue Eliquis Additional Plan . Subjective Date/time seen: 01/24/20 15:42 Interval history: Follow-up for COVID 19 with acute respiratory hypoxemic failure. Tired. ongoing sob needing 4 liters of oxygen Chronic left side weakness. (Bed to wheelchair bound at [place]) No compliants mentioned Review of Systems Review of Systems: All systems reviewed & are unremarkable except as noted in HPI and below Exam Narrative: Exam Narrative: Vital Signs Temp Pulse Resp BP Pulse Ox 37.7 C H 110 H 22 H 141/56 H 82 L 01/13/20 09:00 01/13/20 09:00 01/13/20 09:00 01/13/20 09:00 01/13/20 09:00 HEENT: PERRL, sclerae nonicteric, NECK: No JVD, CHEST: decreased bs. Mildly tachypneic HEART: NL S1/S2, regular, no murmur ABDOMEN: BS+, soft, nontender EXTREMITIES: No edema, NEUROLOGIC: CN intact and symmetric to inspection. 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 Pleasant Neuro: General: other (demented) Objective Data Vital Signs Vital Signs: Vital Signs - 24 hr 01/23/20 18:00 01/23/20 20:58 01/23/20 22:00 Temperature 36.2 C L 36.6 C Pulse Rate 93 85 Respiratory Rate 20 18 Blood Pressure 113/56 L 122/56 L Pulse Oxime
[2020-01-24] MEDS: SENNOSIDES 8.6 MG TABLET PO (21:09)
[2020-01-24] MEDS: ATORVASTATIN 40 MG TABLET PO (21:09)
[2020-01-25 02:00] VITALS: BP 118/50; PULSE 80; RESP 18; TEMP 36.6; O2SAT 92
[2020-01-25] MEDS: LEVOTHYROXINE SODIUM 25 MCG TABLET PO (05:53)
[2020-01-25] MEDS: BACLOFEN 10 MG TABLET PO ×2 (05:53→15:06)
[2020-01-25 06:00] VITALS: BP 141/75; PULSE 90; RESP 18; TEMP 36.4; O2SAT 92
[2020-01-25] MEDS: ARIPIPRAZOLE 5 MG TABLET PO (08:19)
[2020-01-25] MEDS: DOCUSATE SODIUM 100 MG CAPSULE PO (08:19)
[2020-01-25] MEDS: polyethylene glycoL 3350 17 GM POWD.PACK PO (08:19)
[2020-01-25] MEDS: PANTOPRAZOLE 40 MG TABLET PO (08:19)
[2020-01-25] MEDS: LORATADINE 10 MG TABLET PO (08:20)
[2020-01-25] MEDS: ESCITALOPRAM OXALATE 5 MG TABLET PO (08:20)
[2020-01-25] MEDS: THERAPEUTIC MULTIVITAMINS/MINERALS TAB (*BKC) 1 TABLET PO (08:20)
[2020-01-25] MEDS: DULOXETINE 60 MG CAPSULE.DR PO (08:20)
[2020-01-25] MEDS: APIXABAN 5 MG TABLET PO (08:20)
[2020-01-25] MEDS: OXcarbazepine 150 MG TABLET PO (08:20)
[2020-01-25] MEDS: levETIRAcetam 250 MG TABLET 750 MG PO (08:21)
[2020-01-25] MEDS: FLUTICASONE PROPIONATE 0.05% NA SPR 16 GM BTL (*BKC) 2 SPRAY NASAL (08:22)
[2020-01-25] MEDS: TRAMADOL HCL 50 MG TABLET PO (08:25)
[2020-01-25] MEDS: ALBUTEROL SULFATE (*SP) AEROSOL 1 PUFF 2 PUFF INHALATION ×3 (09:04→15:45)
[2020-01-25 10:00] VITALS: BP 123/77; PULSE 89; RESP 18; TEMP 36.1; O2SAT 97
[2020-01-25 12:00] VITALS: PULSE 95; RESP 18; O2SAT 91
[2020-01-25 14:00] VITALS: BP 95/64; PULSE 100; RESP 18; TEMP 36.4; O2SAT 91
--- NOTE | 2020-01-25 15:00 | PM.DS ---
DS: Diagnosis Admitting Diagnosis Admitting Diagnosis: Acute respiratory failure with hypoxia Discharge Diagnosis (1) Acute respiratory failure with hypoxia: Code(s): J96.01 - Acute respiratory failure with hypoxia Status: Acute Assessment and Plan: Secondary to Viral COVID-19 Pneumonia Continue oxygen prn. Chest x-ray 01/20 showed infiltrates. Pt is off oxygen and is doing well, Pt is stable for dischrage back to [facility]. (2) Pneumonia: Qualifiers: Laterality: bilateral Lung location: unspecified part of lung Pneumonia type: due to unspecified organism Qualified Code(s): J18.9 - Pneumonia, unspecified organism Code(s): J18.9 - Pneumonia, unspecified organism Status: Acute Assessment and Plan: Secondary to COVID-19 virus. Continue zpac in [facility]. (3) COVID-19 virus infection: Code(s): U07.1 - COVID-19 Status: Acute Assessment and Plan: Pt treated with Iv rocephin in hospital. pt doing better, stable for dischrage. (4) Normocytic anemia: Code(s): D64.9 - Anemia, unspecified Status: Acute Assessment and Plan: Duration unclear (5) Abnormal urinalysis: Code(s): R82.90 - Unspecified abnormal findings in urine Status: Acute Assessment and Plan: Completed 4 days Ceftriaxone and complete zpac in OR (6) Dementia: Qualifiers: Dementia type: unspecified type Dementia behavioral disturbance: without behavioral disturbance Qualified Code(s): F03.90 - Unspecified dementia without behavioral disturbance Code(s): F03.90 - Unspecified dementia without behavioral disturbance Status: Acute Assessment and Plan: Stable at her baseline (7) COPD (chronic obstructive pulmonary disease): Qualifiers: COPD type: unspecified COPD Qualified Code(s): J44.9 - Chronic obstructive pulmonary disease, unspecified Code(s): J44.9 - Chronic obstructive pulmonary disease, unspecified Status: Chronic Assessment and Plan: Continue bronchodilators. (8) Seizures: Code(s): R56.9 - Unspecified convulsions Status: Chronic Assessment and Plan: Continue Keppra PO. (9) Dysphagia: Qualifiers: Dysphagia type: unspecified Qualified Code(s): R13.10 - Dysphagia, unspecified Code(s): R13.10 - Dysphagia, unspecified Status: Chronic Assessment and Plan: Thickened liquid and pureed diet. 01/13 daughter told RN that patient eats [employer] intermittently (10) Chronic anticoagulation: Code(s): Z79.01 - long term care administrator (current) use of anticoagulants Status: Chronic Assessment and Plan: Unclear indication but continue for anticoagulation Continue Eliquis as before for anticoagulation DS: Summary Time Spent with Patient Time attestation: Total time spent providing and/or coordinating discharge services:40 minutes on day of discharge Exam Narrative: Exam Narrative: Temp Pulse Resp BP Pulse Ox 36.4 C L 100 18 95/64 L 91 01/25/20 14:00 01/25/20 14:00 01/25/20 14:00 01/25/20 14:00 01/25/20 14:00 General: dementia, Chronic left side weakness. (Bed to wheelchair bound at OR) Vitals: Oxygen sats better. Stable for discharge Discharge Plan Discharge Attending physician on discharge: Jess Godfrey Discharging Clinician: Jess Godfrey Anticipated Discharge Date/Time: 01/25/20 15:30 Patient Disposition: OR Intermediate/Asst Living Activity: as tolerated Diet: heart healthy Discharge Instructions: Pt to continue on oxygen prn Patient Instructions: Antibiotic Form, Apixaban (By mouth), Heart Failure (DC), Hypoxia (GEN), Pneumonia (DC), COVID-19 (Coronavirus Disease 2019) (DC) [facility]
== END 2020-01-25 16:30 | DRG 177 ==
LOC: ANHED 11:11 → ANH3MEDSUR 14:28
PROVIDERS: Family Medicine; Internal Medicine; Admitting Provider Family Medicine; Emergency Provider Emergency Medicine; PCP Family Medicine; Visit Provider Family Medicine
DX: U07.1 COVID-19 (principal); J12.89 Other viral pneumonia; J96.01 Acute respiratory failure with hypoxia; I69.354 Hemiplegia and hemiparesis following cerebral infarction affecting left non-dominant side; R47.01 Aphasia; D64.9 Anemia, unspecified; R82.90 Unspecified abnormal findings in urine; F03.90 Unspecified dementia, unspecified severity, without behavioral disturbance, psychotic disturbance, mood disturbance, and anxiety; J44.9 Chronic obstructive pulmonary disease, unspecified; R13.10 Dysphagia, unspecified; E78.5 Hyperlipidemia, unspecified; G40.909 Epilepsy, unspecified, not intractable, without status epilepticus; Z66 Do not resuscitate; Z79.01 Long term (current) use of anticoagulants; Z93.1 Gastrostomy status; Z87.891 Personal history of nicotine dependence
CPT/HCPCS: 36415; 36600; 51701; 71045; 80048; 80076; 81001; 82375; 82728; 82805; 83050; 83605; 83615; 83690; 85025; 85027; 85380; 86140; 87040; 87086; 87088; 93005; 94640; 96365; 96375; 99285; A9270; G0378; G0379; J0456; J0696; J2405

== ENCOUNTER 2020-05-27 05:41 | Inpatient (IN) | payer MEDICARE, MEDICAID, SELFPAY ==
[2020-05-27] VITALS (11 sets, daily range): BP systolic 90–145; BP diastolic 67–84; PULSE 76–96; RESP 17–20; TEMP 36.2–36.8; O2SAT 96–100; BMI 32.4
--- NOTE | ~2020-05-27 | MR_ITS ---
EXAMINATION: MR brain/brain stem wo/w con EXAM DATE: 05/28/2020 09:21 INDICATION: New 2 cm mass right parietal occipital region. TECHNIQUE: Magnetic resonance imaging (MRI) of the brain/brain stem obtained without contrast. Sagit [place] T1, axial diffusion, gradient echo (T2*), T1, T2, FLAIR sequences obtained. Patient was then inj ected with 15 cc intravenous Multihance contrast. Axial and coronal postcontrast T1 weighted sequence s obtained. Correlation is made to head CT 07/12/2015 and 05/27/2020. FINDINGS: There has been interval evolution of large right sided cerebral infarction, with large anna on of encephalomalacia. Focal right parietal region in question on head CT measures 1.3 x 2.1 x 1.4 c m, has some susceptibility from the calcification identified, it is high signal intensity on both pre and postcontrast images. Laminar necrosis is typically not this focal, and on the postcontrast image s. There does appear to be some peripheral increase in signal intensity, peripheral enhancement. 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 No other areas of abnormal enhancement. Mild microangiopathy and cerebral atrophy. No acute infarctio n or intraparenchymal hematoma. No extra-axial collections or obstructive hydrocephalus. Bilateral ca taract surgery. Bilateral mastoid fluid. IMPRESSION: 1. 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 2. Mild age-related findings. Reviewed, dictated and finalized at location A. IMPRESSION: 1. 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 2. Mild age-related findings.
--- NOTE | ~2020-05-27 | CT_ITS ---
EXAMINATION: CT brain wo con DATE: 05/27/2020 06:52 INDICATION: Altered mental status TECHNIQUE: Computed tomography (CT) of the head was performed without intravenous contrast. Sagittal and coronal reconstructions were performed. The mA was adjusted according to patient size. Iterative reconstruction technique was employed. The dose-length product was 605.33 mGy-cm. COMPARISON: head CT dated 07/12/2015 FINDINGS: Again seen is a large region of encephalomalacia consistent with chronic infarct of the right middle cerebral artery vascular distribution including portions of the right frontal, temporal, parietal and occipital lobes, right insula and right basal ganglia right internal capsule and right thalamus. The re is secondary ex vacuo dilation of the right lateral ventricle and layering degeneration with atrop hy of the right cerebral peduncle. Additional small chronic infarct in the left frontal lobe as well as a small old lacunar infarct in the left basal ganglia. No acute intracranial hemorrhage, acute inf arction or abnormal extra axial fluid collection. Within the infarcted right parieto-occipital region there is a 2.0 x 1.3 x 2.0 cm centrally lower attenuation peripherally higher attenuation and in mul tiple places peripherally calcified mass suggesting developing heterotopic ossification. No other mas ses or mass effect. Bilateral otomastoiditis effusions. The orbits and paranasal sinuses are normal. IMPRESSION: 1. No acute intracranial process. 2. Large chronic infarct involving the right middle cerebral artery vascular distribution. 3. Couple additional small infarcts in the left frontal lobe and left basal ganglia. 3. New 2.0 cm mass in the right parieto-occipital region of infarct with partial peripheral calcifica tion which most likely benign but would recommend pre and postcontrast MRI for further evaluation. Reviewed, dictated and finalized at location A. IMPRESSION: 1. No acute intracranial process. 2. Large chronic infarct involving the right middle cerebral artery vascular di stribution. 3. Couple additional small infarcts in the left frontal lobe and left basal radha glia. 3. New 2.0 cm mass in the right parieto-occipital region of infarct with partia l peripheral calcification which most likely benign but would recommend pre and postcontrast MRI for further evaluation.
--- NOTE | 2020-05-27 05:56 | ECG_ITS ---
Measurements Intervals [place] Rate: 83 P: 43 AR: 199 QRS: 56 QRSD: 95 T: 73 QT: 370 QTc: 437 Interpretive Statements SINUS RHYTHM INCOMPLETE RIGHT BUNDLE BRANCH BLOCK BASELINE ARTIFACT- I, II, III, AVR, AVL, AVF, V1-V2 BORDERLINE ECG Electronically Signed On 05-27-2020 12:55:51 CDT by Usman Roldan D.O.
--- NOTE | 2020-05-27 06:38 | ED.AMS ---
HPI - Altered Mental Status General Chief Complaint: Altered Mental Status <Apolinar Simon MD - Last Filed: 05/27/20 07:20> Stated Complaint: AMS <Apolinar Simon MD - Last Filed: 05/27/20 07:20> Time Seen by Provider: 05/27/20 06:06 <Apolinar Simon MD - Last Filed: 05/27/20 07:20> History of Present Illness HPI narrative: Brought in by EMS from assisted for altered mental status. She is reportedly fully oriented at baseline and they found her to be oriented to herself only. On arrival here she is again oriented. She has no specific complaints and says that she would like to go back home. She has a h/o COPD on O2. CVA. UTIs. <Apolinar Simon MD - Last Filed: 05/27/20 07:20> Related Data Home Medications: Home Medications Medication Instructions Recorded Confirmed Eliquis 5 mg PO BID 01/13/20 01/13/20 Mucinex DM 1 tablet PO Q12H PRN 01/13/20 01/13/20 acetaminophen [Tylenol 8 Hour] 650 mg PO Q6H PRN 01/13/20 01/13/20 aripiprazole [Abilify] 5 mg PO DAILY 01/13/20 01/13/20 atorvastatin [Lipitor] 40 mg PO HS 01/13/20 01/13/20 baclofen 10 mg PO TID 01/13/20 01/13/20 benzonatate 200 mg PO TID PRN 01/13/20 01/13/20 bisacodyl 5 mg PO DAILY PRN 01/13/20 01/13/20 calcium carbonate [Tums] 200 mg PO DAILY PRN 01/13/20 01/13/20 dimethicone-petrolatum 1 applic TOPICAL QSHIFT 01/13/20 01/13/20 docusate sodium [Colace] 100 mg PO BID 01/13/20 01/13/20 duloxetine 60 mg PO DAILY 01/13/20 01/13/20 escitalopram oxalate 5 mg PO DAILY 01/13/20 01/13/20 fluticasone propionate 2 spray INTRANASAL DAILY 01/13/20 01/13/20 guaifenesin 100 mg PO QID PRN 01/13/20 01/13/20 ibuprofen 600 mg PO BID 01/13/20 01/13/20 ibuprofen 600 mg PO TID PRN 01/13/20 01/13/20 ipratropium-albuterol 3 ml INHALATION QID PRN 01/13/20 01/13/20 levetiracetam [Keppra] 750 mg PO BID 01/13/20 01/13/20 levothyroxine 25 mcg PO DAILY 01/13/20 01/13/20 loratadine 10 mg PO DAILY 01/13/20 01/13/20 multivitamin with minerals 1 tablet PO DAILY 01/13/20 01/13/20 omeprazole 20 mg PO BID 01/13/20 01/13/20 oxcarbazepine [Trileptal] 150 mg PO BID 01/13/20 01/13/20 polyethylene glycol 3350 17 g PO DAILY 01/13/20 01/13/20 polyvinyl alcohol [Artificial 1 drp OPHTHALMIC (EYE) QID PRN 01/13/20 01/13/20 Tears (polyvin alc)] sennosides [senna] 8.6 mg PO HS 01/13/20 01/13/20 <Apolinar Simon MD - Last Filed: 05/27/20 07:20> Allergies/Adverse Reactions: Allergies Allergy/AdvReac Type Severity Reaction Status Date / Time Sulfa (Sulfonamide Allergy Mild TOPICAL Verified 01/13/20 11:11 Antibiotics) APPLICATION: REDNESS AND EDEMA OF AREA/FACE <Apolinar Simon MD - Last Filed: 05/27/20 07:20> Review of Systems Review of Systems: All systems reviewed & are unremarkable except as noted in HPI and below <Apolinar Simon MD - Last Filed: 05/27/20 07:20> Cardiovascular: Cardiovascular: Denies chest pain <Apolinar Simon MD - Last Filed: 05/27/20 07:20> Respiratory: Respiratory: Reports dyspnea <Apolinar Simon MD - Last Filed: 05/27/20 07:20> Gastrointestinal: Gastrointestinal: Denies abdominal pain, Denies nausea and Denies vomiting <Apolinar Simon MD - Last Filed: 05/27/20 07:20> Musculoskeletal: Musculoskeletal: Denies back pain <Apolinar Simon MD - Last Filed: 05/27/20 07:20> Neurologic: Denies dizziness <Apolinar Simon MD - Last Filed: 05/27/20 07:20> COUNT INCLUDES THE [facility] Past Medical History Medical History: Medical History COPD (chronic obstructive pulmonary disease) Hyperlipidemia Hypertension Seizures Stroke <Apolinar Simon MD - Last Filed: 05/27/20 07:20> Surgical History Surgical History: Surgical History History of gastrostomy tube placement <Apolinar Simon MD - Last Filed: 05/27/20 07:20> Social History Social History: Socia
[2020-05-27 06:41] LABS: Basophils Percent Auto 0.2 % (0.2-1.2); Eosinophils Absolute Auto 0.2 K/mm3 (0-0.3); Eosinophils Percent Auto 2.1 % (0-4.4); Hematocrit 36.7 % (37.0-47.0); Hemoglobin 11.9 g/dL (12.0-15.0); Immature Granulocyte Absolute 0.03 K/mm3 (0.00-0.031); Immature Granulocyte Percent A 0.3 % (0-0.5); Lymphocytes Absolute Auto 2.31 K/mm3 (0.9-3.2); Lymphocytes Percent Auto 25.4 % (18.3-44.2); Mean Corpuscular HGB Conc 32.4 g/dl (32-36); Mean Corpuscular Hemoglobin 30.9 pg (26-34); Mean Corpuscular Volume 95.3 fl (80-100); Mean Platelet Volume 10.1 fl (7.4-10.4); Monocytes Absolute Auto 0.6 K/mm3 (0.1-0.6); Monocytes Percent Auto 6.5 % (2.6-8.5); Neutrophils Percent Auto 65.5 % (45.5-73.1); Platelet Count Result 292 k/mm3 (150-375); Red Blood Count 3.85 M/mm3 (4.2-5.4); Red Cell Distribution Width 13.9 % (11.5-14.5); White Blood Count 9.1 K/mm3 (4.5-10.0)
[2020-05-27 06:54] LABS: Alanine Aminotransferase 30 U/L (4-35); Albumin Level 4.1 g/dL (3.5-5.1); Alkaline Phosphatase 119 U/L (38-126); Anion Gap 8 mmol/L (8-16); Aspartate Amino Transferase 29 U/L (14-36); Bilirubin,Total 0.3 mg/dL (0.2-1.3); Blood Urea Nitrogen 20 mg/dL (7-17); Calcium 9.1 mg/dL (8.4-10.2); Carbon Dioxide 30 mmol/L (22-30); Chloride 103 mmol/L (98-107); Estimated CRCL calculation 50 ml/min; Estimated Glomerular Filt Rate 50; Glucose 119 mg/dL (65-105); Potassium 4.4 mmol/L (3.4-5.0); Sodium 141 mmol/L (137-145)
--- NOTE | 2020-05-27 07:30 | PC.NURSE ---
PT NOT SENT FROM LONG-TERM W/ MEDICATION LIST.
[2020-05-27 07:42] LABS: Add Urine Microscopic? YES; Appearance Urine Turbid (Clear); Bacteria Urine 2+ /hpf; Bilirubin Urine Negative (Negative); Blood Urine 1+ (Negative); Color Urine Yellow (Yellow); Glucose Urine UA Negative (Negative); Ketones Urine Negative (Negative); Leukocyte Esterase Ur 3+ LEU/UL (Negative); Mucus Urine Rare /lpf; Nitrate Urine Positive (Negative); Protein Urine 2+ mg/dL (Negative); RBC Urine >75 /hpf (0-2); Specific Grav Ur 1.018 (1.001-1.035); Squamous Epithelial Cell Urine Many /hpf (Few); Urobilinogen Urine Negative mg/dL (<2.0); WBC Urine >75 /hpf
--- NOTE | 2020-05-27 07:57 | PC.NURSE ---
ASSUMED CARE FROM AKI MALDONADO AT THIS TIME, PT ON 2L O2, SLEEPING SOUNDLY, AWAITING RESULTS, WILL CONTINUE TO MONITOR.
[2020-05-27] MEDS: SODIUM CHLORIDE 0.9% IV 1,000 ML 999 ML IV CONT (09:02)
[2020-05-27 11:09] LABS: Lactic Acid Reflex 0.9 mmol/L (0.7-2.1)
--- NOTE | 2020-05-27 16:31 | PM.IMHP ---
H&P: HPI History of Present Illness Date/Time: 05/27/20 16:31 Chief complaint: uti,ams transient Narrative: Margo Myrick is a 60 year old female Who is from [facility]. She does have a history of dementia and is answering my questions without difficulty at this time. The patient was brought into the emergency room today for altered mental status changes. She is fully orientated at baseline was found to be orientated to herself only today. Upon arrival she was orientated according to the ER records. And states that she would like to go back home. She has a history of having COPD chronically on oxygen at 2 L per nasal cannula. She is hemo paresis on the left side due to CVA. She has history of UTIs. However her last urine culture in December grew normal sveta. Was contamination from external genitalia. Creatinine today 1.1 BUN 20 glucose 119. Lactic was normal. Urine was found to be turbid 2+ protein positive for nitrates 3+ leukocyte esterase greater than 75 RBCs and greater than 75 wbc's many squamous epithelial and 2+ urine bacteria. Patient was started on IV fluids and ceftriaxone. Patient is awake and answering questions without difficulty she is able to tell me which intermediate she is from however the patient thought that she was there for rehab and could remember the name of the place where she is now. She was able to the supply me with rest the information for the history and physical. Date of service 05/27/2020. Review of Systems Review of Systems: All systems reviewed & are unremarkable except as noted in HPI and below Constitutional: Constitutional: Reports as per HPI and Reports no additional constitutional complaints Eyes: Eyes: Reports as per HPI and Reports no additional eye complaints ENT: Reports system reviewed and no additional complaints, except as documented and Reports Normal hearing present Cardiovascular: Cardiovascular: Reports no additional cardiovascular complaints Respiratory: Respiratory: Reports no additional respiratory complaints and Reports no additional respiratory complaints Gastrointestinal: Gastrointestinal: Reports as per HPI and Reports no additional gastrointestinal complaints Musculoskeletal: Musculoskeletal: Reports no additional musculoskeletal complaints Integumentary/Breasts: Skin/Breast: Reports system reviewed and no additional complaints, except as docu and Reports as per HPI Neurologic: Reports system reviewed and no additional complaints, except as documented, Reports as per HPI and Reports Normal hearing present Psychiatric: Psychiatric: Reports no additional psychiatric complaints and Reports as per HPI Endocrine: Endocrine: Reports no additional endocrine complaints Hematologic/Lymphatic: Hematologic/Lymphatic: Reports no additional hematologic/lymphatic complaints Allergic/Immunologic: Allergic/Immunologic: Reports no additional allergic/immunologic complaints [facility] Past Medical History Medical History (Updated 05/27/20 @ 16:49 by Stephanie Ley NP) Congestive heart failure COPD (chronic obstructive pulmonary disease) Depression with anxiety Hyperlipidemia Hypertension Hypothyroidism Schizoaffective disorder Seizures Stroke left hemiparesis Surgical History Surgical History (Updated 05/27/20 @ 16:46 by Stephanie Ley NP) History of facial surgery History of gastrostomy tube placement Family History Family History (Updated 05/27/20 @ 16:48 by Stephanie Ley NP) Father Acute myocardial infarction Mother Stomach cancer Social History Social History Social History: Lives in a intermediate. Smoking status: Former smoker Tobacco type: cigarettes Smoking end date: 10/01/14 Alcohol intake: never Substance use: never Gender identity (if verbalized by the patient): Female Spiritual care concerns: No Agree to blood products: Yes Meds Home Medi
[2020-05-27] MEDS: APIXABAN 5 MG TABLET PO (18:15)
[2020-05-27] MEDS: CALCIUM CARBONATE (TUMS) 500 MG (200 MG ELEMENTAL) PO (18:15)
[2020-05-27] MEDS: OXcarbazepine 150 MG TABLET PO (20:48)
[2020-05-27] MEDS: levETIRAcetam 250 MG TABLET 750 MG PO (20:48)
[2020-05-27] MEDS: DOCUSATE SODIUM 100 MG CAPSULE PO (20:48)
[2020-05-27] MEDS: ATORVASTATIN 40 MG TABLET PO (20:48)
[2020-05-28] MEDS: traMADol HCL 50 MG TABLET PO ×3 (01:35→22:06)
[2020-05-28 06:00] VITALS: BP 106/67; PULSE 79; RESP 18; TEMP 36.3; O2SAT 98
[2020-05-28 06:03] LABS: Basophils Percent Auto 0.4 % (0.2-1.2); Eosinophils Absolute Auto 0.2 K/mm3 (0-0.3); Eosinophils Percent Auto 2.4 % (0-4.4); Hematocrit 35.3 % (37.0-47.0); Hemoglobin 11.4 g/dL (12.0-15.0); Immature Granulocyte Absolute 0.02 K/mm3 (0.00-0.031); Immature Granulocyte Percent A 0.3 % (0-0.5); Lymphocytes Absolute Auto 2.59 K/mm3 (0.9-3.2); Lymphocytes Percent Auto 32.4 % (18.3-44.2); Mean Corpuscular HGB Conc 32.3 g/dl (32-36); Mean Corpuscular Volume 95.9 fl (80-100); Mean Platelet Volume 11.7 fl (7.4-10.4); Monocytes Absolute Auto 0.4 K/mm3 (0.1-0.6); Neutrophils Absolute Auto 4.8 K/mm3 (1.3-6.7); Neutrophils Percent Auto 59.5 % (45.5-73.1); Red Blood Count 3.68 M/mm3 (4.2-5.4); Red Cell Distribution Width 13.8 % (11.5-14.5)
[2020-05-28] MEDS: LEVOTHYROXINE SODIUM 25 MCG TABLET PO (06:28)
[2020-05-28 06:32] LABS: Alanine Aminotransferase 28 U/L (4-35); Albumin Level 3.9 g/dL (3.5-5.1); Alkaline Phosphatase 106 U/L (38-126); Anion Gap 7 mmol/L (8-16); Aspartate Amino Transferase 38 U/L (14-36); Bilirubin,Total 0.3 mg/dL (0.2-1.3); Blood Urea Nitrogen 14 mg/dL (7-17); Calcium 9.1 mg/dL (8.4-10.2); Carbon Dioxide 24 mmol/L (22-30); Chloride 106 mmol/L (98-107); Estimated CRCL calculation 66 ml/min; Estimated Glomerular Filt Rate > 60; Glucose 91 mg/dL (65-105); Magnesium 1.9 mg/dL (1.6-2.3); Phosphorus 3.8 mg/dL (2.5-4.5); Potassium 4.4 mmol/L (3.4-5.0); Sodium 137 mmol/L (137-145)
[2020-05-28 07:55] VITALS: O2SAT 97
[2020-05-28] MEDS: APIXABAN 5 MG TABLET PO ×2 (09:41→17:22)
[2020-05-28] MEDS: CALCIUM CARBONATE (TUMS) 500 MG (200 MG ELEMENTAL) PO ×3 (09:41→17:22)
[2020-05-28] MEDS: DOCUSATE SODIUM 100 MG CAPSULE PO ×2 (09:41→21:57)
[2020-05-28] MEDS: levETIRAcetam 250 MG TABLET 750 MG PO ×2 (09:41→21:58)
[2020-05-28] MEDS: DULoxetine HCL 30 MG CAPSULE.DR PO (09:41)
[2020-05-28] MEDS: SENNOSIDES 8.6 MG TABLET PO (09:42)
[2020-05-28] MEDS: THERAPEUTIC MULTIVITAMINS/MINERALS TAB (*BKC) 1 TABLET PO (09:42)
[2020-05-28] MEDS: OXcarbazepine 150 MG TABLET PO ×2 (09:42→21:57)
--- NOTE | 2020-05-28 10:57 | PM.IMPN ---
Progress Note: A&P Assessment and Plan (1) Acute UTI: Code(s): N39.0 - Urinary tract infection, site not specified Status: Acute Assessment and Plan: UA grossly abnormal. The pt reports dysuria, urgency and frequency. Urine culture is pending. Continue IV ceftriaxone. Await urine cultures. (2) COPD (chronic obstructive pulmonary disease): Qualifiers: COPD type: unspecified COPD Qualified Code(s): J44.9 - Chronic obstructive pulmonary disease, unspecified Code(s): J44.9 - Chronic obstructive pulmonary disease, unspecified Status: Chronic Assessment and Plan: Chronic with no acute issues/evidence of bronchospasm. Continue albuterol PRN, spiriva and symbicort. Continue baseline home oxygen of 2L per nasal cannula. (3) Dementia: Qualifiers: Dementia type: unspecified type Dementia behavioral disturbance: without behavioral disturbance Qualified Code(s): F03.90 - Unspecified dementia without behavioral disturbance Code(s): F03.90 - Unspecified dementia without behavioral disturbance Status: Chronic Assessment and Plan: Pt is A&Ox4 and answering questions appropriately. Continue to monitor. (4) Hypothyroidism: Code(s): E03.9 - Hypothyroidism, unspecified Status: Chronic Assessment and Plan: TSH was normal at 3.62. Continue levothyroxine. (5) Depression with anxiety: Code(s): F41.8 - Other specified anxiety disorders Status: Chronic Assessment and Plan: Continue escitalopram and cymbalta. (6) Seizures: Code(s): R56.9 - Unspecified convulsions Status: Chronic Assessment and Plan: Chronic. Continue levetiracetam and oxcarbazepine. Levetiracetam level was ordered and pending. (7) Hypertension: Qualifiers: Hypertension type: unspecified Qualified Code(s): I10 - Essential (primary) hypertension Code(s): I10 - Essential (primary) hypertension Status: Chronic Assessment and Plan: Blood pressures were reviewed and are soft but acceptable. She is not on any antihypertensives. Continue to monitor. (8) Hyperlipidemia: Qualifiers: Hyperlipidemia type: unspecified Qualified Code(s): E78.5 - Hyperlipidemia, unspecified Code(s): E78.5 - Hyperlipidemia, unspecified Status: Chronic Assessment and Plan: LFT reviewed and acceptable (AST mildly eelvated at 38). Continue atorvastatin. (9) History of dysphagia: Code(s): Z87.19 - Personal history of other diseases of the digestive system Status: Acute Assessment and Plan: At prior hospitalization, pt was on thickened liquids and pureed diet. I will ask speech therapy to see her for further recommendations. Continue thickened liquids and pureed diet for now. (10) Chronic pain: Code(s): G89.29 - Other chronic pain Status: Acute Assessment and Plan: Continue gabapentin and baclofen. Subjective Date/time seen: 05/28/20 10:57 Mrs. Myrick is a 60 y.o. female with PMH significant for CVA with residual hemiparesis, dementia, COPD on 2L who is seen in follow-up for UTI. She is feeling better today. She reports dysuria and urinary frequency but this is mildly improved. She denies nausea and vomiting. She denies subjective fever and chills. She has chronic dyspnea but this is no worse from baseline. She denies chest pain. Her bowels are regular and she had a bowel movement today. She has no other concerns. Review of Systems Review of Systems: All systems reviewed & are unremarkable except as noted in HPI and below Exam Narrative: Exam Narrative: General: Very pleasant, chronically ill-appearing 60 y.o. female appears older than stated age lying in bed in no acute distress. HEENT: Normocephalic and atraumatic. Conjunctivae and lids normal. PERRL. EOMI. Oral mucosa moist. Neck: Supple.
[2020-05-28] MEDS: BACLOFEN 10 MG TABLET 20 MG PO ×2 (12:35→17:22)
[2020-05-28 13:31] VITALS: O2SAT 96
[2020-05-28 14:00] VITALS: BP 118/66; PULSE 77; RESP 16; TEMP 35.7; O2SAT 99
--- NOTE | 2020-05-28 16:17 | PCSTNOTE ---
Please refer to the Bedside Swallow Evaluation in the EMR. Please note, silent aspiration cannot be ruled out at bedside.
[2020-05-28] MEDS: GABAPENTIN 100 MG CAPSULE PO (17:23)
[2020-05-28 21:07] VITALS: BP 106/62; PULSE 76; RESP 18; TEMP 36.2; O2SAT 99
[2020-05-28] MEDS: ATORVASTATIN 40 MG TABLET PO (21:58)
[2020-05-29] VITALS (8 sets, daily range): BP systolic 103–122; BP diastolic 66–75; PULSE 72–96; RESP 18–20; TEMP 36.1–37; O2SAT 93–98
[2020-05-29] MEDS: LEVOTHYROXINE SODIUM 25 MCG TABLET PO (06:52)
[2020-05-29 07:27] LABS: Anion Gap 7 mmol/L (8-16); Blood Urea Nitrogen 11 mg/dL (7-17); Calcium 9.4 mg/dL (8.4-10.2); Carbon Dioxide 27 mmol/L (22-30); Chloride 103 mmol/L (98-107); Estimated CRCL calculation 66 ml/min; Estimated Glomerular Filt Rate > 60; Glucose 100 mg/dL (65-105); Magnesium 1.9 mg/dL (1.6-2.3); Potassium 3.8 mmol/L (3.4-5.0); Sodium 137 mmol/L (137-145)
[2020-05-29 07:46] LABS: Hematocrit 34.1 % (37.0-47.0); Hemoglobin 11.2 g/dL (12.0-15.0); Mean Corpuscular HGB Conc 32.8 g/dl (32-36); Mean Corpuscular Hemoglobin 30.9 pg (26-34); Mean Corpuscular Volume 93.9 fl (80-100); Mean Platelet Volume 10.2 fl (7.4-10.4); Platelet Count Result 272 k/mm3 (150-375); Red Blood Count 3.63 M/mm3 (4.2-5.4); Red Cell Distribution Width 13.7 % (11.5-14.5); White Blood Count 8.5 K/mm3 (4.5-10.0)
[2020-05-29] MEDS: APIXABAN 5 MG TABLET PO ×2 (09:57→17:23)
[2020-05-29] MEDS: SENNOSIDES 8.6 MG TABLET PO (09:57)
[2020-05-29] MEDS: DOCUSATE SODIUM 100 MG CAPSULE PO (09:57)
[2020-05-29] MEDS: FLUTICASONE PROPIONATE 0.05% NA SPR 16 GM BTL (*BKC) 2 SPRAY NASAL (09:57)
[2020-05-29] MEDS: levETIRAcetam 250 MG TABLET 750 MG PO ×2 (09:57→21:07)
[2020-05-29] MEDS: OXcarbazepine 150 MG TABLET PO ×2 (09:58→21:09)
[2020-05-29] MEDS: GABAPENTIN 100 MG CAPSULE PO ×2 (09:58→17:23)
[2020-05-29] MEDS: BACLOFEN 10 MG TABLET 20 MG PO ×3 (09:58→17:23)
[2020-05-29] MEDS: THERAPEUTIC MULTIVITAMINS/MINERALS TAB (*BKC) 1 TABLET PO (09:58)
[2020-05-29] MEDS: ESCITALOPRAM OXALATE 10 MG TABLET PO (09:58)
[2020-05-29] MEDS: DULoxetine HCL 30 MG CAPSULE.DR PO (09:59)
[2020-05-29] MEDS: CALCIUM CARBONATE (TUMS) 500 MG (200 MG ELEMENTAL) PO ×3 (09:59→17:23)
[2020-05-29] MEDS: traMADol HCL 50 MG TABLET PO ×2 (10:02→21:08)
--- NOTE | 2020-05-29 11:31 | PM.DS ---
DS: Admitting Diagnosis Admitting Diagnosis Admitting Diagnosis: UTI, AMS transient DS: Discharge Diagnosis Discharge Diagnosis (1) Brain tumor: Code(s): D49.6 - Neoplasm of unspecified behavior of brain Status: Acute Assessment and Plan: Discharge Summary (Date of service 05/29/20): Mrs. Myrick is a 60 y.o. female with PMH significant for dementia, right hemispheric stroke with left hemiparesis, CHF, COPD, hyperlipidemia, hypertension, schizoaffective disorder, and seizures who presented to the emergency department for the evaluation of altered mental status. Urine culture was grossly abnormal and she complained of dysuria and urinary frequency. IV ceftriaxone was initiated and she was admitted to the hospitalist service. CT brain demonstrated a new 2.0cm mass in the right parieto-occipital region of infarct with partial peripheral calcification. 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 I called to discuss the case with neurosugery at [facility]. I spoke with Dr. Royce Cannon. The patient will need to see Dr. Ervin Levine, neurosurgeon, Sunday06/02/20. The office should call the patient to schedule the appointment. I discussed this with the patient and her daughter and POA, Gloria Mendez, and they both verbalized understanding regarding the need for urgent follow-up next week. Her mental status was back at baseline and she felt much better with no further dysuria or frequency. She was afebrile, hemodynamically stable, and felt stable for discharge. She was discharged in stable condition on the afternoon of 05/29/10. After discharge, her urine culture was noted to have ESBL resistant to ceftriaxone so I called the intermediate and spoke with Elma Meyer RN, and advised that they needed to stop cefdinir and start augmentin. (2) Acute UTI: Code(s): N39.0 - Urinary tract infection, site not specified Status: Acute Assessment and Plan: UA grossly abnormal. The pt reported dysuria, urgency and frequency. She was treated with IV ceftriaxone and discharged on PO cefdinir. Urine culture results were not available prior to discharge but are now available at the time of this dictation and demonstrate ESBL resistant to ceftriaxone. I called [facility] [place] and talked with Elma Meyer RN. I advised that they need to stop cefdinir and start augmentin which I have sent to the pharmacy given updated urine culture results. (3) COPD (chronic obstructive pulmonary disease): Qualifiers: COPD type: unspecified COPD Qualified Code(s): J44.9 - Chronic obstructive pulmonary disease, unspecified Code(s): J44.9 - Chronic obstructive pulmonary disease, unspecified Status: Chronic Assessment and Plan: Chronic with no acute issues/evidence of bronchospasm. Albuterol PRN, spiriva and symbicort were continued. Home oxygen requirement of 2L was continued. (4) Dementia: Qualifiers: Dementia behavioral disturbance: without behavioral disturbance Dementia type: unspecified type Qualified Code(s): F03.90 - Unspecified dementia without behavioral disturbance Code(s): F03.90 - Unspecified dementia without behavioral disturbance Status: Chronic Assessment and Plan: Pt is A&Ox4 and answering questions appropriately. Continue to monitor. (5) Hypothyroidism: Code(s): E03.9 - Hypothyroidism, unspecified Status: Chronic Assessment and Plan: TSH was normal at 3.62. Levothyroxine was continued. (6) Depression with anxiety: Code(s): F41.8 - Other specified anxiety disorders Status: Chronic Assessment and Plan: Escitalopram and cymbalta were continued. (7) Seizures: Code(s): R56.9 - Unspecified convulsions Status: Chronic Assessment and Plan: Chronic. Levetirac
[2020-05-29 18:03] LABS: SARS-CoV-2 RNA PCR Negative
[2020-05-29] MEDS: ATORVASTATIN 40 MG TABLET PO (21:09)
[2020-05-30 10:37] LABS: Levetiracetam Keppra 18.5 mcg/mL (12.0-46.0)
== END 2020-05-29 23:25 | DRG 690 ==
LOC: ANHED 08:54 → ANH3MEDSUR 09:32
PROVIDERS: Emergency Medicine; Family Medicine; Nurse Practitioner; Physician Assistant; Admitting Provider Internal Medicine; Emergency Provider Emergency Medicine; PCP Family Medicine; Visit Provider Hospitalist
DX: N39.0 Urinary tract infection, site not specified (principal); I69.354 Hemiplegia and hemiparesis following cerebral infarction affecting left non-dominant side; Z16.12 Extended spectrum beta lactamase (ESBL) resistance; D49.6 Neoplasm of unspecified behavior of brain; F03.90 Unspecified dementia, unspecified severity, without behavioral disturbance, psychotic disturbance, mood disturbance, and anxiety; F25.9 Schizoaffective disorder, unspecified; J44.9 Chronic obstructive pulmonary disease, unspecified; I11.0 Hypertensive heart disease with heart failure; I50.9 Heart failure, unspecified; Z99.81 Dependence on supplemental oxygen; E78.5 Hyperlipidemia, unspecified; F41.8 Other specified anxiety disorders; E03.9 Hypothyroidism, unspecified; R56.9 Unspecified convulsions; G89.29 Other chronic pain; Z79.01 Long term (current) use of anticoagulants; Z79.899 Other long term (current) drug therapy; Z87.19 Personal history of other diseases of the digestive system; Z87.891 Personal history of nicotine dependence; Z88.2 Allergy status to sulfonamides; Z20.828 Contact with and (suspected) exposure to other viral communicable diseases
CPT/HCPCS: 36415; 51701; 70450; 70553; 80048; 80053; 80177; 81001; 83605; 83735; 84100; 84443; 85025; 85027; 85055; 87040; 87077; 87086; 87088; 87186; 87635; 92610; 93005; 94640; 96374; 99285; A9270; A9577; C9803; G0378; J0696; J7030; U0003

== ENCOUNTER 2025-01-05 13:42 | Emergency (ER) | payer MEDICARE, MEDICAID, SELFPAY ==
--- NOTE | ~2025-01-05 | CT_ITS ---
CT brain wo con Ordering provider: Magdiel Hill MD History: 64 years Female with . ams . Comparison: May 27, 2020 Technique: CT of the head without contrast. Radiation reduction technique utilized. The dose-length p roduct was 605.33 mGy-cm. FINDINGS: BRAIN PARENCHYMA AND CSF SPACES: 3.2 cm right chronic subdural versus CSF hygroma is noted. Communica tion with the right lateral ventricle is possible.. Mild midline shift with mass effect. No hemorrhag e. Multiple areas of encephalomalacia seen in the right cerebral hemisphere. The brain parenchyma and CSF spaces are otherwise normal. VISUALIZED PARANASAL SINUSES: Well aerated. MASTOIDS: Effusion in the left mastoid air cells. Otherwise, Well aerated. BONES: Postoperative changes in the right parietal area. The bones appear intact. SOFT TISSUES: Visualized nasopharynx is normal. Superficial soft tissues are normal. IMPRESSION: Right subdural chronic hematoma versus CSF hygroma is noted. Otherwise, No acute intracranial finding s. Reviewed, dictated and finalized at location A. IMPRESSION: Right subdural chronic hematoma versus CSF hygroma is noted. Otherwise, No acut e intracranial findings.
[2025-01-05 13:44] VITALS: BP 159/78; PULSE 70; RESP 16; TEMP 36.4; O2SAT 95
[2025-01-05 13:49] VITALS: O2SAT 96
--- NOTE | 2025-01-05 14:02 | ECG_ITS ---
Test Date: 2025-01-05 14:08:18 Measurements Intervals [place] Rate: 73 P: 46 WV: 232 QRS: 57 QRSD: 100 T: 64 QT: 403 QTc: 445 Interpretive Statements SINUS RHYTHM WITH FIRST DEGREE AV BLOCK INCOMPLETE RIGHT BUNDLE BRANCH BLOCK BORDERLINE T WAVE ABNORMALITY- ANTERIOR LEADS BASELINE ARTIFACT- I, II, III, AVR, AVL, AVF, V1-V6 BORDERLINE ECG No previous ECG available for comparison Electronically Signed On 01-05-2025 14:09:00 CDT by Usman Roldan D.O.
[2025-01-05 14:18] LABS: Basophils Percent Auto 0.2 % (0.2-1.2); Eosinophils Percent Auto 0.4 % (0-4.4); Hematocrit 40.2 % (37.0-47.0); Immature Granulocyte Absolute 0.04 K/mm3 (0.00-0.031); Immature Granulocyte Percent A 0.4 % (0-0.5); Lymphocytes Absolute Auto 1.66 K/mm3 (0.9-3.2); Lymphocytes Percent Auto 16.2 % (18.3-44.2); Mean Corpuscular HGB Conc 32.3 g/dl (32-36); Mean Corpuscular Hemoglobin 30.3 pg (26-34); Mean Corpuscular Volume 93.7 fl (80-100); Mean Platelet Volume 9.2 fl (7.4-10.4); Monocytes Absolute Auto 0.5 K/mm3 (0.1-0.6); Monocytes Percent Auto 4.9 % (2.6-8.5); Neutrophils Percent Auto 77.9 % (45.5-73.1); Platelet Count Result 289 k/mm3 (150-375); Red Blood Count 4.29 M/mm3 (4.2-5.4); Red Cell Distribution Width 14.2 % (11.5-14.5); White Blood Count 10.3 K/mm3 (4.5-10.0)
[2025-01-05 14:27] LABS: Alanine Aminotransferase 37 U/L (6-35); Albumin Level 4.1 g/dL (3.5-5.1); Alkaline Phosphatase 145 U/L (38-126); Anion Gap 11 mmol/L (4-12); Aspartate Amino Transferase 40 U/L (14-36); Bilirubin,Total 0.5 mg/dL (0.2-1.3); Blood Urea Nitrogen 15 mg/dL (7-17); Calcium 8.9 mg/dL (8.4-10.2); Carbon Dioxide 24 mmol/L (22-30); Chloride 96 mmol/L (98-107); Estimated CRCL calculation 47 ml/min; Estimated Glomerular Filt Rate 53; Glucose 142 mg/dL (65-110); Potassium 4.7 mmol/L (3.4-5.0); Sodium 131 mmol/L (137-145)
[2025-01-05 14:31] LABS: Prothrombin Time 13.2 Seconds (11.1-14.7)
[2025-01-05 14:32] LABS: Partial Thromboplastin Time 24.2 Seconds (22.3-36.8)
[2025-01-05 15:08] LABS: Add Urine Microscopic? YES; Appearance Urine Turbid (Clear); Bacteria Urine 4+ /hpf; Bilirubin Urine Negative (Negative); Blood Urine 2+ (Negative); Color Urine Yellow (Yellow); Glucose Urine UA Negative (Negative); Ketones Urine Negative (Negative); Leukocyte Esterase Ur 3+ LEU/UL (Negative); Need Manual Microscopic Reviewed; Nitrate Urine Positive (Negative); Non Pathogenic Casts 0-2; Protein Urine 2+ mg/dL (Negative); Specific Grav Ur 1.013 (1.001-1.035); Squamous Epithelial Cell Urine Many /hpf (Few); Urobilinogen Urine 0.2 mg/dL (<2.0); WBC Urine >100 /hpf (0-3); pH Urine 6.5 (5.0-9.0)
[2025-01-05 16:34] VITALS: BP 163/83; PULSE 73; RESP 18; O2SAT 94
[2025-01-05 17:45] VITALS: BP 149/89; PULSE 74; RESP 20; O2SAT 96
--- OUTSIDE RECORDS SUMMARY | 2025-01-05 18:15 | XMS_ITS | Clinical Summary ---
Author Organization [facility] Address [address] [place] [id number] Care Team Providers Care Blow Mold Operator Name Role Phone Unavailable Primary Care Provider Unavailabl e Social History Tobacco Use Types Packs/Day Years Used Date Smoking Tobacco: Never Assessed Comments Unknown Sex and Gender Information Value Date Recorded Sex Assigned at Not on file Legal Sex Female 4:42 PM CDT Gender Identity Not on file Sexual Orientation Not on file Plan of Treatment Health Maintenance Due Date Last Done Comments Colorectal Cancer Screening Colonoscopy (10 Years) 1959 Hepatitis C 1977 DTaP, Tdap and Td Vaccines ( 1 - Tdap) 1978 Mammogram Screening 1999 Pneumococcal Vaccine: 50+ Ye ars (1 of 1 - PCV) 2009 Zoster Vaccines (1 of 2) 2009 Dexa Scan (General) 02/27/2024 COVID-19 Vaccine (2023-2 5 season) 2024 RSV Immunization or 60+ Years (1 - 1-dose 75+ series) 2034 Meningococcal B Vaccine Aged Out No l onger eligible based on patient's age to complete this topic Meningococcal Vaccine Aged Out No joanna gloria eligible based on patient's age to complete this topic RSV Immunizations Under 20 Months Aged Out No longer eligible based on patient's age to complete this topic
--- OUTSIDE RECORDS SUMMARY | 2025-01-05 18:15 | XMS_ITS | Continuity of Care Document ---
Author Organization [facility] Address [address] [place] [address] [facility] [address] [place] [address] Phone Care Team Providers Care Multiple Slide Operator Name Role Phone Rivera Sepulveda Unavailable Unavailable Advance Directives Directive Yes / No Effective Date File Name No Information Encounters Encounter Description Practice Location Reason(s) For Visit Diagnoses Date Provider Providers Copied on Encounter [facility], [id number] [place] [address] [address], [place], [place], [id number], [place] tel:[phone] [facility] No Information [address]. [address] , [address], [place], [address], [place]. tel:[phone] Family History Family Member Type Diagnosis Age At Onset No Information Payers Payer name Insurance type Covered libertarian ID Authoriza tion(s) No Information Social History Type Description Quantity Date Captured Comments Sex Female Smoking Status No Information Chief Complaint And Reason For Visit No Information Reason For Referral Reason For Referral No Information History Of Present Illness Encounter Date Complaint History Of Prese nt Illness No Information Functional Status Date Functional Assessmen t No Information Instructions Date Instruction Additional Infor mation No Information Assessments Type Assessment Date No Information Patient Care Teams Name Effective Dates (start - stop) Status Members No Information
--- OUTSIDE RECORDS SUMMARY | 2025-01-05 18:15 | XMS_ITS | Clinical Summary ---
Author Organization [facility] Address [address] [place] [address] Care Team Providers Care Security Consultant Name Role Phone Unavailable Primary Care Provider Unavailabl e Source Comments [facility],non-owned Affiliates and Associated Physician Practices is amultiple site organization consisting of ambulatory clinics and hospital sitesin [place], [place], [place] and [place]. This disclosure is being madepursuant to the Care Everywhere program and may not contain all information available regarding this patient. Last updated 18.[facility] Allergies Active Allergy Reactions Criticality Noted Date Comments Sulfa Drugs Skin Reactions Medium 06/29/2015 Medications * Be aware that medications may not be up to date on this document. Alwaysverify current medications with the patient. albuterol HFA (PROVENTIL;RAHUL TOLIN;PROAIR) 108 (90 Base) MCG/ACT inhaler Inhale 2 puffs by mouth every 4 hours as needed 0 Active atorvastatin (LIPITOR) 40 MG tablet Take 40 mg by mouth at bedtime 0 Active levETIRAcetam (KEPPRA) 750 MG tablet Take 750 mg by mouth 2 times daily 0 Active levothyroxine (SYNTHROID) 25 MCG tablet Take 25 mcg by mouth once daily 0 Active OXcarbazepine (TRILEPTAL) 150 MG tablet Take 150 mg by mouth 2 times daily 0 Active docusate sodium (COLACE) 100 MG capsule Take 100 mg by mouth 2 times daily Active fluticasone propionate (FLONASE) 50 MCG/ACT nasal spray [place] 2 sprays into each nostril once daily Active senna (SENOKOT) 8.6 MG tablet Take 8.6 mg by mouth once daily Active loratadine (CLARITIN) 10 MG tablet Take 10 mg by mouth once daily as needed for Runny Nose or Allergies Active tiotropium (SPIRIVA HANDIHALER) 18 MCG inhalation capsule Inhale 1 capsule by mouth once daily Active budesonide-for moterol (SYMBICORT) 160-4.5 MCG/ACT inhaler Inhale 2 puffs by mouth 2 times daily Active bisacodyl EC (BISACODYL EC) 5 MG tablet Take 5 mg by mouth once as needed for Constipation Active dextromethorph an-guaiFENesin ER 12hr (MUCINEX DM) 30-600 MG tablet Take 1 tablet by mouth every 12 hours as needed for Cough Active polyethylene glycol 3350 (MIRALAX) 17 GM/SCOOP powder Take 17 g by mouth once daily as needed for Constipation Active calcium carbonate (TUMS) 500 MG chew tablet Take 1 tablet by mouth once daily as needed Active acetaminophen (TYLENOL) 325 MG tablet Take 650 mg by mouth every 6 hours as needed for Pain Maximum allowable Acetaminophen amount = 4 Grams (4000 mg) / 24 hours. Active LORazepam (ATIVAN) 0.5 MG tablet Take 0.5 mg by mouth once daily as needed for Anxiety Active artificial tears (TEARS AGAIN) 1.4 % ophthalmic solution Instill 1 drop into both eyes 4 times daily as needed Active omeprazole (PRILOSEC) 20 MG capsule Take 20 mg by mouth once daily as needed for Heartburn Active gabapentin (NEURONTIN) 250 MG/5ML oral solution Take 100 mg by mouth 2 times daily Active therapeutic multivitamin-m inerals (THERAGRAN-M) tablet Take 1 tablet by mouth daily with food Active ARIPiprazole (ABILIFY) 5 MG tablet Take 0.5 tablets by mouth once daily 0 Active folic acid (FOLVITE) 1 MG tablet Take 1 tablet by mouth once daily 0 Active melatonin 3 MG tablet Take 1 tablet by mouth nightly as needed for Insomnia 0 Active baclofen (LIORESAL) 5 MG TABS Take 1 tablet by mouth 3 times daily 0 Active thiamine 100 MG Take 1 tablet by mouth once daily 0 Active oxyCODONE, immediate release, (ROXICODONE) 5 MG tablet Take 1 tablet by mouth every 6 hours as needed 12 tablet 0 Active aspirin (ASPIRIN) 81 MG chew tablet Take 1 tablet by mouth once daily 0 Active Active Problems Problem Noted Date Diagnosed Date Brain mass 06/02/2020 Dementia, vascular 06/02/2020 COPD (chronic obstructive pulmonary disease) Left hemiplegia 06/02/2020 Schizoaffective disorder 06/02/2020 Seizures 06/02/2020 Altered mental status 06/02/2020 Fall 06/02/2020 Essential (primary) hypertension 07/05/2015 Nicotine dependence, uncomplicated 07/05/2015 Hyperlipidemia 07/05/2015 Cerebral infarction 06/29/2015 Resolved Problems Problem Noted Date Diagnosed Date Resolved Date Urinary tract infection 10/08/201512/16 Overview (12/17/2017): IMO load Immunizations Immunization Administration Dates Next Due INFLUENZA VACCINE, QUADR. (F LUZONE; FLULAVAL; FLUARIX; AFLURIA QUADRIVALENT; 6MO+), 0.5 ML (IIV4) 06/11/2020 Family History Medical History Relation Name Comments Alcohol abuse Father CAD (Coronary Artery Disease) Father Relation Name Status Comments Father Social History Tobacco Use Types Packs/Day Years Used Date Smoking Tobacco: Former Cigarettes Smokeless Tobacco: Never Alcohol Use Standard Drinks/Week Comments Not Currently 3.3 (1 standard drin k = 0.6 oz pure alcohol) heavy drinker in past - has been a few years Comments No Sex and Gender Information Value Date Recorded Sex Assigned at Not on file Legal Sex Female 6:05 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 Gender Identity Not on file Sexual Orientation Not on file Last Filed Vital Signs Vital Sign Reading Time Taken Comments Blood Pressure 121/84 07/14/2020 10:27 AM CDT Pulse 82 07/14/2020 10:27 AM CDT Temperature 36.9 C (98.4 F) 07/14/2020 10:27 AM CDT Respiratory Rate 18 07/14/2020 10:2 7 AM CDT Oxygen Saturation 97% 07/14/2020 10: 27 AM CDT Inhaled Oxygen Concentration - - Weight 88.2 kg (194 lb 6.4 oz) 07/14/2020 10:27 AM CDT pt in whe[place]air Height 152.4 cm (5') 07/14/2020 10:27 AM CDT Body Mass Index 37.97 07/14/2020 10:27 AM CDT Plan of Treatment Health Maintenance Due Date Last Done Comments BONE DENSITY TESTING 1959 COLOGUARD (AGES 45-75) - COLON CA SCREENING 1959 COLON MONITORING 1959 COLONOSCOPY - COLON CA SCREENING 1959 CT COLONOGRAPHY - COLON CA SCREENING 1959 Colorectal Cancer Screening 1959 FIT - COLON CA SCREENING 1959 FLEX SIG - COLON CA SCREENING 1959 MAMMOGRAM 1959 HIV SCREENING 1974 HEPATITIS C SCREENING 02/21/1977 DTAP/TDAP/TD VACCINES (1 - Tdap) 1978 PNEUMOCOCCAL VACCINE 50+ (1 of 1 - PCV) 2009 ZOSTER VACCINE (1 of 2) 2009 SCREENING FOR DIABETES 06/16/2023 0, 06/14/2020, 06/13/2020, Additional history exists COVID-19 VACCINE ( - 2023- season) 2024 DEPRESSION SCREENING 09/17/2024 INFLUENZA VACCINE (Season Ended) 2025 06/11/2020 Respiratory Syncytial Virus (RSV) Vaccine Pt: or over 60 yrs (1 - 1-dose 75+ series) 2034 HEPATITIS B VACCINE Aged Out No longe r eligible based on patient's age to complete this topic HIB VACCINE Aged Out No longer eligi ble based on patient's age to complete this topic HPV VACCINE Aged Out No longer eligi ble based on patient's age to complete this topic MENINGOCOCCAL (Group B) VACCINE SHARED DECISION-MAKING Aged Out No longer eligible based on patient's age to complete this topic MENINGOCOCCAL GROUPS A/C/Y/W VACCINE Aged Out No longer eligible based on patient's age to complete this topic Medical Devices Implanted Type Area [employer] Manager Device Identifier Shelf Expiration Date Model / Serial / Lot Plate 2 Hl Lopro Crnmxf 15mm Str Glenn Implanted:Qty: 2 on 06/10/2020 by Ervin Levine MD at [facility] Right: Cranial [employer] [id number] / / Cover Bur Hl 13.5mm Spne Bnt Implanted:Qty: 1 on 06/10/2020 by Ervin Levine MD at [facility] Right: Cranial [employer] [id number] / / Screw 1.5mm 4mm Slf Drl Xdr Crnmxf Implanted:Qty: 8 on 06/10/2020 by Ervin Levine MD at [facility] Right: Cranial [employer] [id number] / / Procedures Procedure Name Priority Date/Time Associated Diagnosis Comments RENAL FUNCTION PANEL AM Draw 06/16/2020 1:38 AM CDT from Last 3 Months or Most Recently Relevant to Health Maintenance Results * (ABNORMAL) RENAL FUNCTION PANEL (06/16/2020 1:38 AM CDT) BUN 12 7 - 26 mg/dL 06/16/2020 3:08 AM [facility] Creatinine 0.7 0.6 - 1.2 mg/dL 06/16/2020 3:08 AM [facility] Sodium 135(L) 136 - 145 mmol/L 06/16/2020 3:08 AM [facility] Potassium 3.8 3.5 - 4.5 mmol/L 06/16/2020 3:08 AM [facility] Chloride 94(L) 98 - 107 mmol/L 06/16/2020 3:08 AM [facility] CO2 32(H) 22 - 29 mmol/L 06/16/2020 3:08 AM [facility] Glucose 231(H) 70 - 115 mg/dL 06/16/2020 3:08 AM [facility] Albumin 2.4(L) 3.4 - 5.0 g/dL 06/16/2020 3:08 AM [facility] Calcium 9.5 8.4 - 10.2 mg/dL 06/16/2020 3:08 AM [facility] Phosphorus 3.3 2.3 - 4.7 mg/dL 06/16/2020 3:08 AM [facility] Anion Gap 13 8 - 18 06/16/2020 3:08 AM CDT [facility] BUN/Creatinine Ratio 17 7 - 23 06/16/2020 3:08 AM CDT [facility] Osmolality Calculated 287 270 - 300 mOsm/kg 06/16/2020 3:08 AM CDT [facility] eGFR >60 >60 mL/min/1.7 3 m2 06/16/2020 3:08 AM CDT [facility] Blood BLOOD SPECIMEN / Unknown Lab Venipuncture / Unknown 06/16/2020 1:38 AM CDT 06/16/2020 2:42 AM CDT Sadia Pandya MD LAB - CHEMISTRY ORDERABLES Rosie gaines Result [facility] [address] [place] [address], [facility] [phone] from Last 3 Months or Most Recently Relevant to Health Maintenance Insurance [facility] MEDICARE [facility] MEDICARE Advance Directives * LIMITED RESUSCITATION-PRIOR AND AFTER ARREST (Latest Code Status on File) Date Activated Date Inactivated Comments 06/02/2020 9:26 PM 06/16/2020 1:46 PM Question Answer Comments Limited Resuscitation: No Chest Compress ionNo Intubation, No Invasive VentilationNo Cardioversion, No Defibrilation, No External or Internal Pacemaker
--- NOTE | 2025-01-05 19:22 | PC.NURSE ---
Assumed care of patient after receiving bedside report from AKI Florez @ [phone]
--- NOTE | 2025-01-05 19:23 | PC.NURSE ---
Report called to AKI Zamora @ [facility] ED by AKI Florez @ [phone]
[2025-01-05 19:27] VITALS: BP 142/51; PULSE 70; RESP 14; O2SAT 97
--- NOTE | 2025-01-05 19:41 | PC.NURSE ---
Pt's POA Gloria Gaitan made aware of pt's condition and levon pt is going to be transfer to [facility] ED, verbal consent to transfer received.
--- NOTE | 2025-01-05 21:41 | ED.AMS ---
HPI - Altered Mental Status General Chief Complaint: Altered Mental Status Stated Complaint: altered LOC Time Seen by Provider: 01/05/25 16:42 History of Present Illness HPI narrative: 64-year-old female with a past medical history including prior CVA with left-sided hemiparesis, schizoaffective disorder, dementia, seizure disorder on Keppra. Patient presents today with acute mental status changes. Normally she is alert oriented x4 according to EMS report from her [facility] facility. Potentially either last night or earlier this morning nursing noted that patient was more confused, alert to name only and not able to appropriately answer questions. No new focal neurological deficits. Patient is not any acute distress upon my assessment but unable to provide any salient details. No reported trauma per [place] [facility], no evidence of trauma. She does take Eliquis on review of the EMR. She has a history of brain mass versus conversion of her prior stroke requiring neuro surgical evaluation at [facility] 5 years ago. No other documentation recently. Her paperwork is sparse from the [facility] facility and I was not able to contact any of the emergency contacts on her face sheet. Related Data Home Medications ?Medication ?Instructions ?Recorded ?Confirmed ?Last Taken ?Type acetaminophen 325 mg tablet 325 mg PO Q6-8H PRN Pain (Scale 05/27/20 05/27/20 Unknown History (Tylenol) Score 1-3) apixaban 5 mg tablet (Eliquis) 5 mg PO BID 05/27/20 05/27/20 Unknown History atorvastatin 40 mg tablet (Lipitor) 40 mg PO HS 05/27/20 05/27/20 Unknown History bisacodyl 5 mg tablet,delayed 5 mg PO DAILY PRN Constipation 05/27/20 05/27/20 Unknown History release budesonide-formoterol HFA 160 2 puff inhalation Q12H 05/27/20 05/27/20 Unknown History mcg-4.5 mcg/actuation aerosol inhaler (Symbicort) calcium carbonate (Tums) 200 mg PO TID 05/27/20 05/27/20 Unknown History dextromethorphan-guaifenesin 30 1 tablet PO Q12H PRN Congestion 05/27/20 05/27/20 Unknown History mg-600 mg tablet extended [id number] hr (Mucinex DM) docusate sodium 100 mg capsule 100 mg PO BID 05/27/20 05/27/20 Unknown History (Colace) duloxetine 30 mg capsule,delayed 30 mg PO DAILY 05/27/20 05/27/20 Unknown History release escitalopram oxalate 10 mg tablet 10 mg PO DAILY 05/27/20 05/27/20 Unknown History (Lexapro) fluticasone propionate 50 2 spray intranasal DAILY 05/27/20 05/27/20 Unknown History mcg/actuation nasal spray,suspension levetiracetam 750 mg tablet 750 mg PO BID 05/27/20 05/27/20 Unknown History (Keppra) levothyroxine 25 mcg tablet 25 mcg PO DAILY 05/27/20 05/27/20 Unknown History multivitamin with minerals 1 tablet PO DAILY 05/27/20 05/27/20 Unknown History oxcarbazepine 150 mg tablet 150 mg PO BID 05/27/20 05/27/20 Unknown History (Trileptal) sennosides 8.6 mg tablet (senna) 8.6 mg PO DAILY 05/27/20 05/27/20 Unknown History tiotropium bromide 18 mcg capsule 1 cap inhalation DAILY 05/27/20 05/27/20 Unknown History with inhalation device (Spiriva with HandiHaler) tramadol 50 mg tablet 50 mg PO BID PRN Pain 05/27/20 05/27/20 Unknown History baclofen 20 mg tablet 20 mg PO TID 05/28/20 05/28/20 Unknown History gabapentin 100 mg capsule 100 mg PO BID 05/28/20 05/28/20 Unknown History Allergies Allergy/AdvReac Type Severity Reaction Status Date / Time Sulfa (Sulfonamide Allergy Mild TOPICAL Verified 03/07/22 16:22 Antibiotics) APPLICATION: REDNESS AND EDEMA OF AREA/FACE Review of Systems Review of Systems: ROS unobtainable: Yes unobtainable due to mental status [facility] Past Medical History Medical History Hypothyroidism Depression with anxiety Schizoaffective disorder Congestive heart failure Hyperlipidemia Hypertension Stroke left hemiparesis Seizures COPD (chronic obstructive pulmonary disease) Surgical History Surgical History History of facial surgery History of gastrostomy tube placement Family History Family History Father Acute myocardial infarction Mother Stomach cancer Social History Social History Social History: Lives in a [place] [facility]. Smoking status: Former smoker Tobacco type: cigarettes Smoking end date: 10/01/14 Alcohol intake: never Substance use: never Gender identity (if verbalized by the patient): Female Spiritual care concerns: No Agree to blood products: Yes Exam Narrative: GENERAL: [Well-appearing, well-nourished, and in no acute distress.] HEAD: [Normocephalic, atraumatic.] EYES: [PERRLA and EOMI.] ENT: Nares clear, no rhinorrhea or epistaxis. Mucous membranes moist. NECK: Supple. CHEST: [Clear to auscultation. No respiratory distress.] HEART: [Regular rate and rhythm]. No murmur heard. [Normal peripheral pulses.] ABDOMEN: [Soft, nondistended], [nontender], [No rigidity or guarding] EXTREMITIES: Normal range of motion. [No edema.] SKIN: Warm, dry, no rash. NEURO: Left-sided hemiparesis, alert oriented x1, awake and answering questions although an appropriate responses and not making sense. Protecting her airway. PSYCH: [Normal mood and affect.] Course Vital Signs Vital signs: Vital Signs Temperature 36.4 C 01/05/25 13:44 Pulse Rate 70 01/05/25 13:44 Respiratory Rate 16 01/05/25 13:44 Blood Pressure 159/78 H 01/05/25 13:44 Pulse Oximetry 95 01/05/25 13:44 Oxygen Delivery Room Air 01/05/25 13:44 Temperature 36.4 C 01/05/25 13:44 Pulse Rate 70 01/05/25 19:27 Respiratory Rate 14 01/05/25 19:27 Blood Pressure 142/51 H 01/05/25 19:27 Pulse Oximetry 97 01/05/25 19:27 Oxygen Delivery Room Air 01/05/25 13:49 MDM - Altered Mental Status MDM Narrative Medical decision making narrative: 64-year-old female presenting with mental status changes. She has a history of schizoaffective disorder, dementia, seizure disorder on Keppra, prior CVA in the right side with potential brain mass versus conversion of her prior stroke. Last visit he was 5 years ago. Mental status normally is alert x4 according to EMS and [facility] facility. Mentation currently is alert x1, no new focal neurological deficit she has chronic hemiparesis on the left side from her prior stroke. No evidence of trauma. She is pleasant but not able to make sense but there is no dysarthria on her speech. Suspicion for potential intracranial pathology is higher, last known well timeline not clear and report from nursing staff is sparse as well as her paperwork. I was not able to make contact with any of her emergency contact on her face sheet or [facility] paperwork for collateral formation. Broad workup was ordered including a CT of the head, urinalysis and laboratory studies. Patient presently has normal blood pressure, normal vital signs and hemodynamically stable. Workup shows no significant leukocytosis. Normal hemoglobin and platelets. Chemistry panel shows some mild hyponatremia but not significant. Creatinine 1.05. Normal glucose and LFTs. Urinalysis is significant contaminated and equivocal for potential infection. Head CT shows chronic appearing right-sided subdural hematoma verses CSF hygroma. No acute intracranial findings otherwise. There appears to be some mild midline shift as well as mass effect. Right-sided findings are 3.2 cm in diameter and significantly changed from her prior CT scans. I discussed the case with [facility] and the [facility] transfer line as she had to get neurosurgical evaluation and treatment with them several years ago. I spoke to Dr. Solorzano from neurosurgery at [facility] who recommended transfer to the emergency department further evaluation and potential treatment interventions. Spoke to the ED provider Dr. Fontanez who accepted the patient as a direct ED to ED transfer. ALS ambulance was arranged. Patient remains hemodynamically stable and protecting airway. She is safe for transfer at this time. Medical Records Attestation: I reviewed the patient's medical records. Lab Data Attestation: I reviewed the patient's lab results. 01/05/25 14:07 01/05/25 14:07 Labs: Lab Results 01/05/25 01/05/25 Range/Units 14:07 14:51 WBC 10.3 H (4.5-10.0) K/mm3 RBC 4.29 (4.2-5.4) M/mm3 Hgb 13.0 (12.0-15.0) g/dL Hct 40.2 (37.0-47.0) % MCV 93.7 (80-100) fl MCH 30.3 (26-34) pg MCHC 32.3 (32-36) g/dl RDW 14.2 (11.5-14.5) % Plt Count 289 (150-375) k/mm3 MPV 9.2 (7.4-10.4) fl Immature Gran % (Auto) 0.4 (0-0.5) % Neut % (Auto) 77.9 H (45.5-73.1) % Lymph % (Auto) 16.2 L (18.3-44.2) % [place] % (Auto) 4.9 (2.6-8.5) % Eos % (Auto) 0.4 (0-4.4) % Baso % (Auto) 0.2 (0.2-1.2) % Lymph # (Auto) 1.66 (0.9-3.2) K/mm3 [place] # (Auto) 0.5 (0.1-0.6) K/mm3 Eos # (Auto) 0.0 (0-0.3) K/mm3 Baso # (Auto) 0.0 (0.0-0.1) K/mm3 Abs Immat Gran (auto) 0.04 H (0.00-0.031) K/mm3 Absolute Neuts (auto) 8.0 H (1.3-6.7) K/mm3 Absolute Nucleated RBC 0.000 (0.0-0.012) K/mm3 Nucleated RBC % 0.0 (0.0-0.2) % PT 13.2 (11.1-14.7) Seconds INR 1.0 APTT 24.2 (22.3-36.8) Seconds Sodium 131 L (137-145) mmol/L Potassium 4.7 (3.4-5.0) mmol/L Chloride 96 L (98-107) mmol/L Carbon Dioxide 24 (22-30) mmol/L Anion Gap 11 (4-12) mmol/L BUN 15 (7-17) mg/dL Creatinine 1.05 H (0.7-1.0) mg/dL Estim Creat Clear Calc 47 ml/min Estimated GFR 53 L (59 - ) Glucose 142 H (65-110) mg/dL Calcium 8.9 (8.4-10.2) mg/dL Total Bilirubin 0.5 (0.2-1.3) mg/dL AST 40 H (14-36) U/L ALT 37 H (6-35) U/L Alkaline Phosphatase 145 H (38-126) U/L Total Protein 8.0 (6.3-8.2) g/dL Albumin 4.1 (3.5-5.1) g/dL Urine Color Yellow (Yellow) Urine Appearance Turbid H (Clear) Urine pH 6.5 (5.0-9.0) Ur Specific [place] 1.013 (1.001-1.035) Urine Protein 2+ H (Negative) mg/dL Urine Glucose (UA) Negative (Negative) mg/dL Urine Ketones Negative (Negative) mg/dL Ur Blood (Man) 2+ H (Negative) Urine Nitrate Positive H (Negative) Urine Bilirubin Negative (Negative) Urine Urobilinogen 0.2 (<2.0) mg/dL Add Ur Microanalysis Reviewed Leukocyte Esterase Rfl 3+ H (Negative) JASON/UL Urine RBC 3-5 H (0-2) /hpf Urine WBC >100 H (0-3) /hpf Ur Squamous Epith Cells Many H (Few) /hpf Urine Bacteria 4+ H /hpf Urine Casts 0-2 Imaging Data Attestation: I personally reviewed and interpreted this imaging study as follows: My impression: Impressions Head CT 01/05/25 17:26 IMPRESSION: Right subdural chronic hematoma versus CSF hygroma is noted. Otherwise, No acute intracranial findings. Critical Care Time Critical Care Time Critical Care Time: Yes Total Critical Care Time: 60 Discharge Plan Discharge Clinical Impression: Subdural hygroma, Chronic intracranial subdural hematoma AMS (altered mental status) Qualifiers: Altered mental status type: transient alteration of awareness Qualified Code(s): R40.4 - Transient alteration of awareness Patient Disposition: Acute Care Hospital Condition: Stable Patient Language: Qatari Prescriptions: No Action atorvastatin [Lipitor] 40 mg Tablet 40 mg PO HS oxcarbazepine [Trileptal] 150 mg Tablet 150 mg PO BID sennosides [senna] 8.6 mg Tablet 8.6 mg PO DAILY acetaminophen [Tylenol] 325 mg Tablet 325 mg PO Q6-8H PRN (Reason: Pain (Scale Score 1-3)) tramadol 50 mg Tablet 50 mg PO BID PRN (Reason: Pain) levothyroxine 25 mcg Tablet 25 mcg PO DAILY calcium carbonate [Tums] 200 mg calcium (500 mg) Tablet,Chewable 200 mg PO TID docusate sodium [Colace] 100 mg Capsule 100 mg PO BID bisacodyl 5 mg Tablet,Delayed Release (Dr/Ec) 5 mg PO DAILY PRN (Reason: Constipation) levetiracetam [Keppra] 750 mg Tablet 750 mg PO BID multivitamin with minerals Tablet 1 tablet PO DAILY Mucinex DM 30-600 mg Tablet Extended Release 12 Hr 1 tablet PO Q12H PRN (Reason: Congestion) fluticasone propionate 50 mcg/actuation [place],Suspension 2 spray INTRANASAL DAILY escitalopram oxalate [Lexapro] 10 mg Tablet 10 mg PO DAILY Spiriva with HandiHaler 18 mcg Capsule, W/Inhalation Device 1 cap INHALATION DAILY duloxetine 30 mg Capsule,Delayed Release(Dr/Ec) 30 mg PO DAILY budesonide-formoterol [Symbicort] 160-4.5 mcg/actuation Hfa Aerosol Inhaler 2 puff INHALATION Q12H Eliquis 5 mg Tablet 5 mg PO BID baclofen 20 mg Tablet 20 mg PO TID gabapentin 100 mg Capsule 100 mg PO BID ibuprofen 600 mg Tablet 600 mg PO Q6-8H Qty: 0 0RF cefdinir 300 mg capsule 300 mg PO Q12H 5 Days Qty: 10 0RF amoxicillin-pot clavulanate [Augmentin] 875-125 mg tablet 1 tablet PO Q12H 5 Days Qty: 10 0RF Follow-up/Referrals: Jesus Hannah MD [Primary Care Provider] -
== END 2025-01-05 20:53 | disposition short-term general hospital (02) ==
PROVIDERS: Emergency Provider Student in an Organized Health Care Education/Training Program; PCP Family Medicine
DX: I69.954 Hemiplegia and hemiparesis following unspecified cerebrovascular disease affecting left non-dominant side (principal); I50.9 Heart failure, unspecified; I11.0 Hypertensive heart disease with heart failure; J44.9 Chronic obstructive pulmonary disease, unspecified; G40.909 Epilepsy, unspecified, not intractable, without status epilepticus; E03.9 Hypothyroidism, unspecified; F41.8 Other specified anxiety disorders; F25.9 Schizoaffective disorder, unspecified; Z79.01 Long term (current) use of anticoagulants; Z79.899 Other long term (current) drug therapy; I44.0 Atrioventricular block, first degree; I45.10 Unspecified right bundle-branch block; R94.31 Abnormal electrocardiogram [ECG] [EKG]
CPT/HCPCS: 36415; 70450; 80053; 81001; 85025; 85610; 85730; 93005; 99291

== ENCOUNTER 2025-06-11 05:59 | Inpatient (IN) | payer MEDICARE, MEDICAID, SELFPAY ==
[2025-06-11] VITALS (13 sets, daily range): BP systolic 125–154; BP diastolic 66–86; PULSE 66–80; RESP 10–18; TEMP 35.7–36.8; O2SAT 92–100; BMI 30.1
--- NOTE | ~2025-06-11 | CT_ITS ---
EXAMINATION: CT brain wo con DATE: 06/11/2025 06:37 INDICATION: Altered mental status TECHNIQUE: Computed tomography (CT) of the head was performed without intravenous contrast. Sagittal and coronal reconstructions were performed. The mA was adjusted according to patient size. Iterative reconstruction technique was employed. The dose-length product was 681.00 mGy-cm. COMPARISON: head CT dated 01/05/2025 and 05/27/2020 FINDINGS: No interval change in a chronic large right subdural CSF attenuation fluid collection likely related to prior hematoma which overlies the right lateral ventricle measuring up to 3 cm in maximal thickness. Large region of chronic encephalomalacia within the right frontal, parietal and temporal lobes in the right middle cerebral artery vascular distribution which preceded the development of the subdural hygroma. Interval placement of a right parietal ventricular drain catheter which extends through the region of encephalomalacia with distal tip slightly tenting the ventricular septum at the anterior body of the right lateral ventricle. Ventricles are unchanged with mild ex vacuo dilation of the right lateral ventricle. No midline shift. No acute intracranial hemorrhage or acute infarction. No masses. Changes of bilateral intraocular lens replacement. The orbitsand paranasal sinuses are normal. Bilateral otomastoiditis effusions. IMPRESSION: 1. Large region of encephalomalacia involving the right middle cerebral artery vascular distribution. No acute intracranial process. 2. Interval placement of a right parietal ventricular drainage catheter with distal tip at the anterior body of the right lateral ventricle with unchanged mild expected dilation of the right lateral ventricle related to the chronic infarct. 3. Unchanged large chronic CSF attenuation fluid collection overlying the right cerebral hemisphere consistent with chronic subdural hematoma. Reviewed, dictated and finalized at location A. IMPRESSION: 1. Large region of encephalomalacia involving the right middle cerebral artery vascular distribution. No acute intracranial process. 2. Interval placement of a right parietal ventricular drainage catheter with di stal tip at the anterior body of the right lateral ventricle with unchanged mil d expected dilation of the right lateral ventricle related to the chronic infar ct. 3. Unchanged large chronic CSF attenuation fluid collection overlying the right cerebral hemisphere consistent with chronic subdural hematoma.
--- NOTE | ~2025-06-11 | XR_ITS ---
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 Heart size normal. Bibasilar predominant interstitial markings. No acute bony abnormality. IMPRESSION: 1. Bibasilar predominant interstitial pulmonary edema and/or pneumonitis. Reviewed, dictated and finalized at location R.
--- NOTE | 2025-06-11 06:11 | ECG_ITS ---
Test Date: 2025-06-11 06:59:54 Measurements Intervals Leiter Rate: 71 P: 51 WI: 236 QRS: 65 QRSD: 98 T: 75 QT: 400 QTc: 437 Interpretive Statements SINUS RHYTHM WITH FIRST DEGREE AV BLOCK INCOMPLETE RIGHT BUNDLE BRANCH BLOCK [90+ ms QRS DURATION, TERMINAL R IN V1/V2, 40+ ms S IN I/aVL/V4/V5/V6] BORDERLINE ECG Compared to ECG 01/05/2025 14:08:18 No significant changes Electronically Signed On 06-11-2025 12:44:15 CDT by Justen Yeboah M.D.
[2025-06-11 06:38] LABS: Hematocrit 41.2 % (37.0-47.0); Hemoglobin 13.5 g/dL (12.0-15.0); Immature Granulocyte Percent A 0.3 % (0-0.5); Lymphocytes Absolute Auto 2.51 K/mm3 (0.9-3.2); Mean Corpuscular HGB Conc 32.8 g/dl (32-36); Mean Corpuscular Hemoglobin 30.1 pg (26-34); Mean Corpuscular Volume 91.8 fl (80-100); Nucleated Red Blood Cells Absolute Auto 0.000 K/mm3 (0.0-0.012); Nucleated Red Blood Cells Perc 0.0 % (0.0-0.2); Platelet Count Result 279 k/mm3 (150-375); Red Blood Count 4.49 M/mm3 (4.2-5.4); White Blood Count 10.6 K/mm3 (4.5-10.0)
[2025-06-11 06:49] LABS: INR 0.9; Partial Thromboplastin Time 25.8 Seconds (22.3-36.8); Prothrombin Time 12.5 Seconds (11.1-14.7)
[2025-06-11 06:59] LABS: Alanine Aminotransferase 26 U/L (6-35); Albumin Level 4.2 g/dL (3.5-5.1); Alkaline Phosphatase 181 U/L (38-126); Anion Gap 7 mmol/L (4-12); Aspartate Amino Transferase 38 U/L (14-36); Bilirubin,Total 0.4 mg/dL (0.2-1.3); Blood Urea Nitrogen 13 mg/dL (7-17); Calcium 9.2 mg/dL (8.4-10.2); Carbon Dioxide 29 mmol/L (22-30); Chloride 93 mmol/L (98-107); Estimated CRCL calculation 43 ml/min; Estimated Glomerular Filt Rate 51; Glucose 106 mg/dL (65-110); Potassium 4.1 mmol/L (3.4-5.0); Sodium 129 mmol/L (137-145); Total Protein 8.3 g/dL (6.3-8.2)
--- NOTE | 2025-06-11 07:09 | ED.GENADULT ---
HPI - General Adult General Chief complaint: Altered Mental Status Stated complaint: AMS, LETHARGIC Time Seen by Provider: 06/11/25 06:53 History of Present Illness HPI narrative: 65 Year old female presents emergency department from her care facility for evaluation for altered mental status. Patient is more disorientated compared to baseline. Patient presented emergency department by EMS from [facility]. Patient is on 3 L of oxygen by nasal cannula. Patient is normally only on room air. Related Data Home Medications ?Medication ?Instructions ?Recorded ?Confirmed ?Last Taken ?Type acetaminophen 325 mg tablet 325 mg PO Q6-8H PRN Pain (Scale 05/27/20 06/11/25 Unknown History (Tylenol) Score 1-3) atorvastatin 40 mg tablet (Lipitor) 40 mg PO HS 05/27/20 06/11/25 Unknown History bisacodyl 5 mg tablet,delayed 5 mg PO DAILY PRN Constipation 05/27/20 06/11/25 Unknown History release calcium carbonate (Tums) 200 mg PO TID PRN dyspepsia 05/27/20 06/11/25 Unknown History fluticasone propionate 50 2 spray intranasal DAILY 05/27/20 06/11/25 Unknown History mcg/actuation nasal spray,suspension levetiracetam 750 mg tablet 750 mg PO BID 05/27/20 06/11/25 Unknown History (Keppra) levothyroxine 25 mcg tablet 25 mcg PO DAILY 05/27/20 06/11/25 Unknown History multivitamin with minerals 1 tablet PO DAILY 05/27/20 06/11/25 Unknown History oxcarbazepine 150 mg tablet 150 mg PO BID 05/27/20 06/11/25 Unknown History (Trileptal) sennosides 8.6 mg tablet (senna) 8.6 mg PO BID 05/27/20 06/11/25 Unknown History baclofen 20 mg tablet 20 mg PO TID 05/28/20 06/11/25 Unknown History gabapentin 100 mg capsule 100 mg PO TID 05/28/20 06/11/25 Unknown History albuterol sulfate 90 mcg/actuation 2 puff inhalation Q4-6H PRN 06/11/25 06/11/25 Unknown History aerosol inhaler shortness of breath or wheezing ascorbic acid (vitamin C) 500 mg 500 mg PO BID 06/11/25 06/11/25 Unknown History tablet aspirin 81 mg tablet,delayed 81 mg PO DAILY 06/11/25 06/11/25 Unknown History release (Adult Low Dose Aspirin) buspirone 5 mg tablet 5 mg PO BID 06/11/25 06/11/25 Unknown History celecoxib 200 mg capsule 200 mg PO HS 06/11/25 06/11/25 Unknown History cholecalciferol (vitamin D3) 125 125 mcg PO DAILY 06/11/25 06/11/25 Unknown History mcg (5,000 unit) tablet (Vitamin D3) cranberry 500 mg capsule 500 mg PO DAILY 06/11/25 06/11/25 Unknown History divalproex 500 mg tablet,extended 500 mg PO HS 06/11/25 06/11/25 Unknown History release 24 hr estradiol 0.01% (0.1 mg/gram) 1 g vaginal .COMPLEX 06/11/25 06/11/25 Unknown History vaginal cream loratadine 10 mg tablet (Allergy 10 mg PO DAILY PRN allergic 06/11/25 06/11/25 Unknown History Relief (loratadine)) symptoms lumateperone 42 mg capsule 42 mg PO DAILY 06/11/25 06/11/25 Unknown History (Caplyta) melatonin 3 mg tablet 3 mg PO HS PRN sleep 06/11/25 06/11/25 Unknown History naloxone 4 mg/actuation nasal 4 mg intranasal Q2-3M PRN opioid 06/11/25 06/11/25 Unknown History spray (Narcan) overdose nitrofurantoin 100 mg PO .COMPLEX 06/11/25 06/11/25 Unknown History monohydrate/macrocrystals 100 mg capsule (Macrobid) omeprazole 20 mg capsule,delayed 20 mg PO DAILY PRN heart burn 06/11/25 06/11/25 Unknown History release oxycodone 5 mg tablet 5 mg PO BID 06/11/25 06/11/25 Unknown History polyethylene glycol 3350 17 gram 17 g PO DAILY PRN constipation 06/11/25 06/11/25 Unknown History oral powder packet (Miralax) thiamine HCl (vitamin B1) 100 mg 100 mg PO DAILY 06/11/25 06/11/25 Unknown History tablet trazodone 50 mg tablet 25 mg PO HS 06/11/25 06/11/25 Unknown History umeclidinium 62.5 mcg/actuation 1 inh inhalation DAILY 06/11/25 06/11/25 Unknown History blister powder for inhalation (Incruse Ellipta) vortioxetine 20 mg tablet 20 mg PO DAILY 06/11/25 06/11/25 Unknown History (Trintellix) Allergies Allergy/AdvReac Type Severity Reaction Status Date / Time Sulfa (Sulfonamide Allergy Mild TOPICAL Verified 03/07/22 16:22 Antibiotics) APPLICATION: REDNESS AND EDEMA OF AREA/FACE Review of Systems Review of Systems: All systems reviewed & are unremarkable except as noted in HPI and below [facility] Past Medical History Medical History Hypothyroidism Depression with anxiety Schizoaffective disorder Congestive heart failure Hyperlipidemia Hypertension Stroke left hemiparesis Seizures COPD (chronic obstructive pulmonary disease) Surgical History Surgical History History of facial surgery History of gastrostomy tube placement Family History Family History Father Acute myocardial infarction Mother Stomach cancer Social History Social History Social History: Lives in a snf. Smoking status: Former smoker Alcohol intake: never Substance use: never Substance use type: does not use Gender identity (if verbalized by the patient): Female Spiritual care concerns: No Agree to blood products: Yes Exam Narrative: APPEARANCE: Ill-appearing HEAD: normocephalic, atraumatic. EYES: PERRLA/EOMI, conjunctivae clear. NOSE: Normal no drainage EARS:TMS clear with good light reflex. THROAT: Pharynx clear, no exudate. NECK: Supple. No adenopathy, no masses. RESPIRATORY: Airway patent, respirations nonlabored. Clear to auscultation bilaterally, no rales, rhonchi, wheezing. CARDIOVASCULAR: Regular rate and rhythm without murmurs rubs or gallops. ABDOMINAL: Soft, nontender, nondistended, normal bowel sounds MUSCULOSKELETAL: Moves all extremities. Strength/ROM intact, No edema, No calf tenderness. NEURO: Alert. Cranial nerves II through XII intact. Good gait. Good coordination SKIN: Warm, dry. Normal Color Course Vital Signs Vital signs: Vital Signs Temperature 98.3 F 09/25/25 05:59 Pulse Rate 69 06/11/25 05:59 Respiratory Rate 15 06/11/25 05:59 Blood Pressure 147/67 H 06/11/25 05:59 Pulse Oximetry 98 06/11/25 05:59 Oxygen Delivery Room Air 06/11/25 05:59 Temperature 97.8 F 06/11/25 14:00 Pulse Rate 70 06/11/25 16:00 Respiratory Rate 16 06/11/25 14:00 Blood Pressure 142/66 H 06/11/25 14:00 Pulse Oximetry 95 06/11/25 14:00 Oxygen Delivery Nasal Cannula 06/11/25 07:30 Oxygen Flow Rate 2 06/11/25 07:30 Medical Decision Making MDM Narrative Medical decision making narrative: 65-year-old female presents to the emergency department for evaluation for altered mental status. Patient is currently afebrile but does have a leukocytosis of 10.6 hemoglobin 13.5. INR is 0.9. Patient does have a hyponatremia of 129. Urine was concerning for urinary tract infection, urine culture was ordered, blood cultures were ordered. Patient was started on IV Rocephin. Patient does have a new O2 requirement but is negative for influenza RSV and for COVID. Chest x-ray does show concern for pneumonia versus pneumonitis. Patient was also started on IV azithromycin. Head CT was negative for acute intracranial abnormality. Case was discussed with hospitalist patient was accepted to [facility] for UTI, pneumonia and altered mental status. Differential Diagnosis Differential Diagnosis: COVID, RSV, influenza came UTI, pneumonia, subdural trauma, subarachnoid hemorrhage Vital Signs Vital Signs: Vital Signs Temperature 98.3 F 06/11/25 05:59 Pulse Rate 69 06/11/25 05:59 Respiratory Rate 15 06/11/25 05:59 Blood Pressure 147/67 H 06/11/25 05:59 Pulse Oximetry 98 06/11/25 05:59 Oxygen Delivery Room Air 06/11/25 05:59 Temperature 97.8 F 06/11/25 14:00 Pulse Rate 70 06/11/25 16:00 Respiratory Rate 16 06/11/25 14:00 Blood Pressure 142/66 H 06/11/25 14:00 Pulse Oximetry 95 06/11/25 14:00 Oxygen Delivery Nasal Cannula 06/11/25 07:30 Oxygen Flow Rate 2 06/11/25 07:30 Lab Data Lab results reviewed: Yes I reviewed the patient's lab results. 06/11/25 06:31 06/11/25 06:31 Labs: Lab Results 06/11/25 06/11/25 06/11/25 Range/Units 06:29 06:31 07:01 WBC 10.6 H (4.5-10.0) K/mm3 RBC 4.49 (4.2-5.4) M/mm3 Hgb 13.5 (12.0-15.0) g/dL Hct 41.2 (37.0-47.0) % MCV 91.8 (80-100) fl MCH 30.1 (26-34) pg MCHC 32.8 (32-36) g/dl RDW 14.1 (11.5-14.5) % Plt Count 279 (150-375) k/mm3 MPV 8.6 (7.4-10.4) fl Immature Gran % (Auto) 0.3 (0-0.5) % Neut % (Auto) 69.1 (45.5-73.1) % Lymph % (Auto) 23.6 (18.3-44.2) % Hart % (Auto) 5.2 (2.6-8.5) % Eos % (Auto) 1.5 (0-4.4) % Baso % (Auto) 0.3 (0.2-1.2) % Lymph # (Auto) 2.51 (0.9-3.2) K/mm3 Hart # (Auto) 0.6 (0.1-0.6) K/mm3 Eos # (Auto) 0.2 (0-0.3) K/mm3 Baso # (Auto) 0.0 (0.0-0.1) K/mm3 Abs Immat Gran (auto) 0.03 (0.00-0.031) K/mm3 Absolute Neuts (auto) 7.3 H (1.3-6.7) K/mm3 Absolute Nucleated RBC 0.000 (0.0-0.012) K/mm3 Nucleated RBC % 0.0 (0.0-0.2) % PT 12.5 (11.1-14.7) Seconds INR 0.9 APTT 25.8 (22.3-36.8) Seconds Sodium 129 L (137-145) mmol/L Potassium 4.1 (3.4-5.0) mmol/L Chloride 93 L (98-107) mmol/L Carbon Dioxide 29 (22-30) mmol/L Anion Gap 7 (4-12) mmol/L BUN 13 (7-17) mg/dL Creatinine 1.07 H (0.7-1.0) mg/dL Estim Creat Clear Calc 43 ml/min Estimated GFR 51 L (59 - ) Glucose 106 (65-110) mg/dL POC Capillary Glucose 113 H (65-105) mg/dl Calcium 9.2 (8.4-10.2) mg/dL Total Bilirubin 0.4 (0.2-1.3) mg/dL AST 38 H (14-36) U/L ALT 26 (6-35) U/L Alkaline Phosphatase 181 H (38-126) U/L Total Protein 8.3 H (6.3-8.2) g/dL Albumin 4.2 (3.5-5.1) g/dL Urine Color Yellow (Yellow) Urine Appearance Cloudy H (Clear) Urine pH 7.0 (5.0-9.0) Ur Specific [place] 1.009 (1.001-1.035) Urine Protein 1+ H (Negative) mg/dL Urine Glucose (UA) Negative (Negative) mg/dL Urine Ketones Negative (Negative) mg/dL Ur Blood (Man) 2+ H (Negative) Urine Nitrate Negative (Negative) Urine Bilirubin Negative (Negative) Urine Urobilinogen 1.0 (<2.0) mg/dL Add Ur Microanalysis Reviewed Leukocyte Esterase Rfl 3+ H (Negative) JASON/UL Urine RBC 21-50 H (0-2) /hpf Urine WBC >100 H (0-3) /hpf Ur Squamous Epith Cells None seen (Few) /hpf Urine Bacteria None seen /hpf Urine Casts 0-2 Influenza A (RT-PCR) (Negative) Influenza B (RT-PCR) (Negative) RSV (RT-PCR) (Negative) SARS-CoV-2 RNA (RT-PCR) (Negative) 06/11/25 Range/Units 07:14 WBC (4.5-10.0) K/mm3 RBC (4.2-5.4) M/mm3 Hgb (12.0-15.0) g/dL Hct (37.0-47.0) % MCV (80-100) fl MCH (26-34) pg MCHC (32-36) g/dl RDW (11.5-14.5) % Plt Count (150-375) k/mm3 MPV (7.4-10.4) fl Immature Gran % (Auto) (0-0.5) % Neut % (Auto) (45.5-73.1) % Lymph % (Auto) (18.3-44.2) % Hart % (Auto) (2.6-8.5) % Eos % (Auto) (0-4.4) % Baso % (Auto) (0.2-1.2) % Lymph # (Auto) (0.9-3.2) K/mm3 Hart # (Auto) (0.1-0.6) K/mm3 Eos # (Auto) (0-0.3) K/mm3 Baso # (Auto) (0.0-0.1) K/mm3 Abs Immat Gran (auto) (0.00-0.031) K/mm3 Absolute Neuts (auto) (1.3-6.7) K/mm3 Absolute Nucleated RBC (0.0-0.012) K/mm3 Nucleated RBC % (0.0-0.2) % PT (11.1-14.7) Seconds INR APTT (22.3-36.8) Seconds Sodium (137-145) mmol/L Potassium (3.4-5.0) mmol/L Chloride (98-107) mmol/L Carbon Dioxide (22-30) mmol/L Anion Gap (4-12) mmol/L BUN (7-17) mg/dL Creatinine (0.7-1.0) mg/dL Estim Creat Clear Calc ml/min Estimated GFR (59 - ) Glucose (65-110) mg/dL POC Capillary Glucose (65-105) mg/dl Calcium (8.4-10.2) mg/dL Total Bilirubin (0.2-1.3) mg/dL AST (14-36) U/L ALT (6-35) U/L Alkaline Phosphatase (38-126) U/L Total Protein (6.3-8.2) g/dL Albumin (3.5-5.1) g/dL Urine Color (Yellow) Urine Appearance (Clear) Urine pH (5.0-9.0) Ur Specific [place] (1.001-1.035) Urine Protein (Negative) mg/dL Urine Glucose (UA) (Negative) mg/dL Urine Ketones (Negative) mg/dL Ur Blood (Man) (Negative) Urine Nitrate (Negative) Urine Bilirubin (Negative) Urine Urobilinogen (<2.0) mg/dL Add Ur Microanalysis Leukocyte Esterase Rfl (Negative) JASON/UL Urine RBC (0-2) /hpf Urine WBC (0-3) /hpf Ur Squamous Epith Cells (Few) /hpf Urine Bacteria /hpf Urine Casts Influenza A (RT-PCR) Negative (Negative) Influenza B (RT-PCR) Negative (Negative) RSV (RT-PCR) Negative (Negative) SARS-CoV-2 RNA (RT-PCR) Negative (Negative) Imaging Data My impression: Chest x-ray: Bibasilar edema versus pneumonia Radiologist's impression: Impressions Head CT 06/11/25 07:52 IMPRESSION: 1. Large region of encephalomalacia involving the right middle cerebral artery vascular distribution. No acute intracranial process. 2. Interval placement of a right parietal ventricular drainage catheter with distal tip at the anterior body of the right lateral ventricle with unchanged mild expected dilation of the right lateral ventricle related to the chronic infarct. 3. Unchanged large chronic CSF attenuation fluid collection overlying the right cerebral hemisphere consistent with chronic subdural hematoma. Chest X-Ray 06/11/25 09:00 IMPRESSION: 1. Bibasilar predominant interstitial pulmonary edema and/or pneumonitis. Discharge Plan Discharge Clinical Impression: Acute UTI, AMS (altered mental status), Pneumonia Patient Disposition: Still a Patient Condition: Serious
[2025-06-11 07:25] LABS: Add Urine Microscopic? YES; Appearance Urine Cloudy (Clear); Glucose Urine UA Negative (Negative); Leukocyte Esterase Ur 3+ LEU/UL (Negative); Need Manual Microscopic Reviewed; Nitrate Urine Negative (Negative); Non Pathogenic Casts 0-2; Specific Grav Ur 1.009 (1.001-1.035)
[2025-06-11 07:56] LABS: Influenza A QL RT-PCR Negative (Negative); Influenza B QL RT-PCR Negative (Negative); RSV RNA, RT-PCR Negative (Negative); SARS-CoV-2 RNA PCR Negative (Negative)
--- NOTE | 2025-06-11 08:22 | PC.NURSE ---
per EDP Dr. Jessica, one set of blood culture is all that is needed due to pt being a difficult stick and being stuck multiple times for the next set
[2025-06-11] MEDS: cefTRIAXone 1 GM in SODIUM CHLORIDE 0.9% IV 50 ML 100 ML IVPB (08:28)
--- NOTE | 2025-06-11 08:29 | P.HP_ITS ---
H&P: HPI History of Present Illness Date/Time: 06/11/25 08:29 Chief Complaint: Altered mental status Narrative: Patient is a 60-year-old female with a past medical history of dementia, CVA with left-sided hemiparesis, schizoaffective disorder, COPD, UTI, hypothyroid, depression, seizures, hypertension, and hyperlipidemia visited the ED due to altered mental status. The patient is typically oriented x4, according to the previous ED records. She does take Eliquis on home medication but not anymore. As per ED documentation on 01/05/2025, she has a history of brain mass versus conversion of her prior stroke requiring neurosurgical evaluation at [facility] 5 years ago. During the previous ED visit on January 05, 2025, the patient had a mild midline shift and was transferred to [facility]. Called POA her daughter and she reports patient had a CVA 10 years ago and was living in the assisted after that. As mentioned previously, the patient was transferred from [place] emergency department to [facility] due to midline shift from the CT findings on . POJessica believes the patient underwent a [employer]GICAL [employer]ESSING [employer] shunt but couldnt confirm. She also reported that the patient is a chronic alcoholic and does not have a good relationship with her , and does not visit her often. She is unaware of any history of atrial fibrillation. Currently, CT scans do not show any evidence of acute bleeding other than chronic subdural hematoma. Patient AOx 1 during the evaluation No evidence of electrolyte abnormality, but there is evidence of UTI and pneumonia, and the patient started on Rocephin and Azithromycin. Review of Systems Review of Systems: All systems reviewed & are unremarkable except as noted in HPI and below PMFSH Past Medical History Medical History Hypothyroidism Depression with anxiety Schizoaffective disorder Congestive heart failure Hyperlipidemia Hypertension Stroke left hemiparesis Seizures COPD (chronic obstructive pulmonary disease) Surgical History Surgical History History of facial surgery History of gastrostomy tube placement Family History Family History Father Acute myocardial infarction Mother Stomach cancer Social History Social History Social History: Lives in a assisted. Smoking status: Former smoker Alcohol intake: never Substance use: never Substance use type: does not use Gender identity (if verbalized by the patient): Female Spiritual care concerns: No Agree to blood products: Yes Meds Home Medications and Allergies Home Medications ?Medication ?Instructions ?Recorded ?Confirmed ?Type acetaminophen 325 mg tablet 325 mg PO Q6-8H PRN Pain ( Scale 05/27/20 06/11/25 History (Tylenol) Score 1-3) atorvastatin 40 mg tablet (Lipitor) 40 mg PO HS 06/11/25 History bisacodyl 5 mg tablet,delayed 5 mg PO DAILY PRN Consti pation 05/27/20 06/11/25 History release calcium carbonate (Tums) 200 mg PO TID PRN dyspepsia 05/27/20 06/11/25 History fluticasone propionate 50 2 spray intranasal DAILY 07/0606/11/25 History mcg/actuation nasal spray,suspension levetiracetam 750 mg tablet 750 mg PO BID 05/27/20 History (Keppra) levothyroxine 25 mcg tablet 25 mcg PO DAILY 05/27/20 0 06/11/25 History multivitamin with minerals 1 tablet PO DAILY 05/27/20 06/11/25 History oxcarbazepine 150 mg tablet 150 mg PO BID 05/27/20 History (Trileptal) sennosides 8.6 mg tablet (senna) 8.6 mg PO BID 0 06/11/25 History baclofen 20 mg tablet 20 mg PO TID 05/28/20 History gabapentin 100 mg capsule 100 mg PO TID 05/28/2006/11 History albuterol sulfate 90 mcg/actuation 2 puff inhalation Q 4-6H PRN 06/11/25 06/11/25 History aerosol inhaler shortness of breath or wheez ing ascorbic acid (vitamin C) 500 mg 500 mg PO BID 5 06/11/25 History tablet aspirin 81 mg tablet,delayed 81 mg PO DAILY 06/11/25 0 06/11/25 History release (Adult Low Dose Aspirin) buspirone 5 mg tablet 5 mg PO BID 06/11/25 5 History celecoxib 200 mg capsule 200 mg PO HS 06/11/25 History cholecalciferol (vitamin D3) 125 125 mcg PO DAILY 05/1906/11/25 History mcg (5,000 unit) tablet (Vitamin D3) cranberry 500 mg capsule 500 mg PO DAILY 06/11/25 History divalproex 500 mg tablet,extended 500 mg PO HS 5 06/11/25 History release 24 hr estradiol 0.01% (0.1 mg/gram) 1 g vaginal .COMPLEX 06/11/25 History vaginal cream loratadine 10 mg tablet (Allergy 10 mg PO DAILY PRN al lergic 06/11/25 06/11/25 History Relief (loratadine)) symptoms lumateperone 42 mg capsule 42 mg PO DAILY 06/11/25 History (Caplyta) melatonin 3 mg tablet 3 mg PO HS PRN sleep 5 06/11/25 History naloxone 4 mg/actuation nasal 4 mg intranasal Q2-3M [place] N opioid 06/11/25 06/11/25 History spray (Narcan) overdose nitrofurantoin 100 mg PO .COMPLEX 06/11/25 06/11/25 History monohydrate/macrocrystals 100 mg capsule (Macrobid) omeprazole 20 mg capsule,delayed 20 mg PO DAILY PRN he art burn 06/11/25 06/11/25 History release oxycodone 5 mg tablet 5 mg PO BID 06/11/25 5 History polyethylene glycol 3350 17 gram 17 g PO DAILY PRN con stipation 06/11/25 06/11/25 History oral powder packet (Miralax) thiamine HCl (vitamin B1) 100 mg 100 mg PO DAILY 06/1106/11/25 History tablet trazodone 50 mg tablet 25 mg PO HS 06/11/25 5 History umeclidinium 62.5 mcg/actuation 1 inh inhalation DAILY 06/11/25 06/11/25 History blister powder for inhalation (Incruse Ellipta) vortioxetine 20 mg tablet 20 mg PO DAILY 06/11/2505/19 History (Trintellix) Allergies Allergy/AdvReac Type Severity Reaction Status Date / Time Sulfa (Sulfonamide Allergy Mild TOPICAL Verified 03/07/22 16:22 Antibiotics) APPLICATION: REDNESS AND EDEMA OF AREA/FACE Vital Signs Vital Signs - 24 hr 06/11/25 05:59 06/11/25 06:12 06/11/25 07:04 Temperature 98.3 F Pulse Rate 69 66 72 Respiratory Rate 15 15 Blood Pressure 147/67 H 140/86 Pulse Oximetry 98 98 Oxygen Delivery Room Air Oxygen Flow Rate 06/11/25 07:30 Temperature Pulse Rate Respiratory Rate Blood Pressure Pulse Oximetry 94 Oxygen Delivery Nasal Cannula Oxygen Flow Rate 2 Exam Narrative: APPEARANCE: Well appearing, no pain, no distress, well-nourished. HEAD: normocephalic, atraumatic. EYES: PERRLA/EOMI, conjunctivae clear. NOSE: Normal no drainage EARS:TMS clear with good light reflex. THROAT: Pharynx clear, no exudate. NECK: Supple. No adenopathy, no masses. RESPIRATORY: Airway patent, respirations nonlabored. Clear to auscultation bilaterally, no rales, rhonchi, wheezing. CARDIOVASCULAR: Regular rate and rhythm without murmurs rubs or gallops. ABDOMINAL: Soft, nontender, nondistended, normal bowel sounds MUSCULOSKELETAL: Moves all extremities. Strength/ROM intact, No edema, No calf tenderness. NEURO: Alert. Cranial nerves II through XII intact. Good gait. Good coordination SKIN: Warm, dry. Normal Color PSYCHIATRIC: Normal affect/mood. H&P: Results Labs Labs: Short CBC 06/11/25 Range/Units 06:31 WBC 10.6 H (4.5-10.0) K/mm3 Hgb 13.5 (12.0-15.0) g/dL Hct 41.2 (37.0-47.0) % Plt Count 279 (150-375) k/mm3 BMP 06/11/25 06:31 Sodium 129 L Potassium 4.1 Chloride 93 L Carbon Dioxide 29 BUN 13 Creatinine 1.07 H Glucose 106 Calcium 9.2 Liver Function 06/11/25 Range/Units 06:31 Total Bilirubin 0.4 (0.2-1.3) mg/dL AST 38 H (14-36) U/L ALT 26 (6-35) U/L Alkaline Phosphatase 181 H (38-126) U/L Albumin 4.2 (3.5-5.1) g/dL Urine 06/11/25 Range/Units 07:01 Urine Color Yellow (Yellow) Urine Appearance Cloudy H (Clear) Urine pH 7.0 (5.0-9.0) Ur Specific [place] 1.009 (1.001-1.035) Urine Protein 1+ H (Negative) mg/dL Urine Glucose (UA) Negative (Negative) mg/dL Assessment and Plan Assessment and plan (1) Acute UTI: Code(s): N39.0 - Urinary tract infection, site not specified Status: Acute Assessment and Plan: If no improvement will perform CT scan abdomen/pelvis Reviewed UA Started on Rocephin Pending urine culture No evidence of pyelonephritis P.o. antibiotics once culture results (2) Chronic anticoagulation: Code(s): Z79.01 - intermediate designer (current) use of anticoagulants Status: Chronic Assessment and Plan: Currently not on anticoagulation due to possible brain bleed (3) Hypertension: Qualifiers: Hypertension type: unspecified Qualified Code(s): I10 - Essential (primary) hypertension Code(s): I10 - Essential (primary) hypertension Status: Chronic Assessment and Plan: Not on any medication (4) Hyperlipidemia: Qualifiers: Hyperlipidemia type: unspecified Qualified Code(s): E78.5 - Hyperlipidemia, unspecified Code(s): E78.5 - Hyperlipidemia, unspecified Status: Chronic Assessment and Plan: Continue atorvastatin 40 mg p.o. HS (5) Schizoaffective disorder: Code(s): F25.9 - Schizoaffective disorder, unspecified Status: Chronic Assessment and Plan: Continue Caplyta Continue Vortioxetine (6) Depression with anxiety: Code(s): F41.8 - Other specified anxiety disorders Status: Chronic Assessment and Plan: Continue BuSpar (7) Brain tumor: Code(s): D49.6 - Neoplasm of unspecified behavior of brain Status: Acute Assessment and Plan: Will request a [facility] medical records (8) Seizures: Code(s): R56.9 - Unspecified convulsions Status: Chronic Assessment and Plan: Continue home medications Keppra 750 mg p.o. b.i.d. Continue Depakote fine mg p.o. q.h.s. Continue Trileptal 150 mg p.o. b.i.d. (9) Pneumonia: Qualifiers: Laterality: bilateral Lung location: unspecified part of lung Pneumonia type: due to unspecified organism Qualified Code(s): J18.9 - Pneumonia, unspecified organism Code(s): J18.9 - Pneumonia, unspecified organism Status: Acute Assessment and Plan: Vital signs improved and stable RSV COVID flu negative Started on ceftriaxone and azithromycin monitor cultures MRSA pending encourage oral intake Plan Code status: DNR DVT prophylaxis previous history of brain bleed Hospitalist MIPS Advance Care Plan I have confirmed that the patient's Advanced Care Plan is present, code status is documented, or surrogate decision maker is listed in patient medical record.: Yes Medication Reconciliation I have utilized all available resources to obtain, update and review the patients current medications (includes all prescriptions, OTC, herbals, cannabis, and nutritional supplements).: Yes
[2025-06-11] MEDS: AZITHROMYCIN IV 500 MG in SODIUM CHLORIDE 0.9% IV 250 ML IVPB (09:37)
--- NOTE | 2025-06-11 12:16 | ADMGEN ---
This patient, Margo Myrick, was admitted to [facility] Surg Room 332-01. Patient/family oriented to hospital policies and general routines including ID bracelet, bed and alarms, visiting hours, pain management, procedures, bathroom and other care routines, personal items, smoking policy, room service/diet, and visiting hours. Information on how to activate the Rapid Response Team has been discussed. Patient/Family are encouraged to report perceived risks to care and to ask questions if they do not understand what they are told or what they should do.
--- NOTE | 2025-06-11 16:30 | PC.NURSE ---
RN gave update to patient's daughter Gloria via telephone on patient's status.
[2025-06-11] MEDS: oxyCODONE HCL (*CRX) 5 MG TAB IR PO (18:39)
[2025-06-11] MEDS: SENNOSIDES 8.6 MG TABLET PO (18:39)
[2025-06-11] MEDS: GABAPENTIN 100 MG CAPSULE PO (18:39)
[2025-06-11 20:12] LABS: MRSA (PCR) NOT DETECTED (NOT DETECTE)
[2025-06-11] MEDS: DIVALPROEX SODIUM ER 500 MG TAB.24H PO (20:54)
[2025-06-11] MEDS: ATORVASTATIN 40 MG TABLET PO (20:54)
[2025-06-12] VITALS (9 sets, daily range): BP systolic 116–143; BP diastolic 58–71; PULSE 68–95; RESP 16–18; TEMP 36.2–36.6; O2SAT 93–94
[2025-06-12] MEDS: MELATONIN 3 MG TABLET PO (01:35)
[2025-06-12] MEDS: ACETAMINOPHEN 325 MG TABLET PO ×2 (01:35→20:44)
[2025-06-12] MEDS: LEVOTHYROXINE SODIUM 25 MCG TABLET PO (05:42)
[2025-06-12] MEDS: UMECLIDINIUM BROMIDE 62.5 MCG ELLIPTA 1 PUFF INHALATION (07:49)
[2025-06-12] MEDS: SENNOSIDES 8.6 MG TABLET PO ×2 (08:17→16:46)
[2025-06-12] MEDS: cefTRIAXone 1 GM in SODIUM CHLORIDE 0.9% IV 50 ML 100 ML IVPB (08:17)
[2025-06-12] MEDS: THIAMINE HCL 100 MG TABLET PO (08:18)
[2025-06-12] MEDS: GABAPENTIN 100 MG CAPSULE PO ×3 (08:18→16:46)
[2025-06-12] MEDS: ASPIRIN 81 MG ENTERIC TABLET PO (08:18)
[2025-06-12] MEDS: oxyCODONE HCL (*CRX) 5 MG TAB IR PO ×2 (08:19→16:47)
[2025-06-12] MEDS: ASCORBIC ACID 500 MG TABLET PO ×2 (08:20→16:46)
[2025-06-12] MEDS: AZITHROMYCIN IV 500 MG in SODIUM CHLORIDE 0.9% IV 250 ML IVPB (09:09)
--- NOTE | 2025-06-12 09:34 | P.PNIM_ITS ---
Progress Note: A&P Assessment and Plan (1) Acute UTI: Code(s): N39.0 - Urinary tract infection, site not specified Status: Acute Assessment and Plan: Reviewed UA Started on Rocephin Follow urine culture No evidence of pyelonephritis P.o. antibiotics once culture results (2) Chronic anticoagulation: Code(s): Z79.01 - detention (current) use of anticoagulants Status: Chronic Assessment and Plan: Currently not on anticoagulation due to possible brain bleed (3) Hypertension: Qualifiers: Hypertension type: unspecified Qualified Code(s): I10 - Essential (primary) hypertension Code(s): I10 - Essential (primary) hypertension Status: Chronic Assessment and Plan: Not on any medication (4) Hyperlipidemia: Qualifiers: Hyperlipidemia type: unspecified Qualified Code(s): E78.5 - Hyperlipidemia, unspecified Code(s): E78.5 - Hyperlipidemia, unspecified Status: Chronic Assessment and Plan: Continue atorvastatin 40 mg p.o. HS (5) Schizoaffective disorder: Code(s): F25.9 - Schizoaffective disorder, unspecified Status: Chronic Assessment and Plan: Continue Caplyta Continue Vortioxetine (6) Depression with anxiety: Code(s): F41.8 - Other specified anxiety disorders Status: Chronic Assessment and Plan: Continue BuSpar (7) Brain tumor: Code(s): D49.6 - Neoplasm of unspecified behavior of brain Status: Acute Assessment and Plan: Will request a [facility] medical records (8) Seizures: Code(s): R56.9 - Unspecified convulsions Status: Chronic Assessment and Plan: Continue home medications Keppra 750 mg p.o. b.i.d. Continue Depakote fine mg p.o. q.h.s. Continue Trileptal 150 mg p.o. b.i.d. (9) Pneumonia: Qualifiers: Laterality: bilateral Lung location: unspecified part of lung Pneumonia type: due to unspecified organism Qualified Code(s): J18.9 - Pneumonia, unspecified organism Code(s): J18.9 - Pneumonia, unspecified organism Status: Acute Assessment and Plan: RSV COVID flu negative Started on ceftriaxone and azithromycin monitor cultures MRSA negative encourage oral intake Plan History of dementia History of stroke with left-sided hemiparesis On 12/2024 she was transferred for midline shift unclear hospital course at [facility] Chronic subdural hematoma with interval placement of 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 Subjective Date/time seen: 06/12/25 09:34 Interval history: Patient remains confused. No other specific symptoms. He has left-sided weakness due to previous stroke. Discussed with nursing. Review of Systems Review of Systems: All systems reviewed & are unremarkable except as noted in HPI and below Exam Narrative: APPEARANCE: Well appearing, no pain, no distress, well-nourished. HEAD: normocephalic, atraumatic. EYES: PERRLA/EOMI, conjunctivae clear. NOSE: Normal no drainage NECK: Supple. No adenopathy, no masses. RESPIRATORY: Airway patent, respirations nonlabored. Clear to auscultation bilaterally, no rales, rhonchi, wheezing. CARDIOVASCULAR: Regular rate and rhythm without murmurs rubs or gallops. ABDOMINAL: Soft, nontender, nondistended, normal bowel sounds MUSCULOSKELETAL: Moves all extremities. Strength/ROM intact, No edema, No calf tenderness. NEURO: Alert. Cranial nerves II through XII intact. Left-sided weakness and left upper extremity contractures noted SKIN: Warm, dry. Normal Color PSYCHIATRIC: Normal affect/mood. Objective Data Vital Signs Vital Signs: Vital Signs - 24 hr 06/11/25 09:37 06/11/25 09:51 06/11/25 10:34 Temperature 98.2 F Pulse Rate 74 Respiratory Rate 16 Blood Pressure 154/76 H Pulse Oximetry 94 92 100 Oxygen Delivery 06/11/25 12:00 06/11/25 14:00 06/11/25 16:00 Temperature 97.8 F Pulse Rate 80 79 70 Respiratory Rate 16 Blood Pressure 142/66 H Pulse Oximetry 95 Oxygen Delivery 06/11/25 20:00 06/11/25 22:00 06/12/25 00:00 Temperature 96.3 F L Pulse Rate 80 78 79 Respiratory Rate 18 Blood Pressure 125/66 Pulse Oximetry 96 Oxygen Delivery 06/12/25 04:00 06/12/25 07:54 06/12/25 08:00 Temperature Pulse Rate 68 83 Respiratory Rate Blood Pressure Pulse Oximetry 93 Oxygen Delivery Room Air Intake/Output Intake/Output: Intake & Output 06/09/25 06/10/25 06/11/25 06/12/25 23:59 23:59 23:59 23:59 Intake Total 1260 500 Output Total 80 Balance 1180 500 Meds/Results Medications: Active Medications Generic Name Dose Route Start Last Admin Trade Name Freq PRN Reason Stop Dose Admin Acetaminophen 325 mg 06/11/25 17:09 06/12/25 01:35 Acetaminophen 325 Mg Tablet PO 325 mg Q6-8H PRN Administration Pain (Scale Score 1-3) Albuterol 2 puff 06/11/25 17:09 Albuterol Sulfate (*Sp) Aerosol 1 Puff INHALATION Q4-6H PRN Shortness Of Breath Or Wheezing Ascorbic Acid 500 mg 06/12/25 09:00 06/12/25 08:20 Ascorbic Acid 500 Mg Tablet PO 500 mg BID RIVAS Administration Aspirin 81 mg 06/12/25 09:00 06/12/25 08:18 Aspirin 81 Mg Enteric Tablet PO 81 mg DAILY RIVAS Administration Atorvastatin Calcium 40 mg 06/11/25 21:00 06/11/25 20:54 Atorvastatin 40 Mg Tablet PO 40 mg HS RIVAS Administration Buspirone HCl 5 mg 06/11/25 18:00 06/12/25 08:17 Buspirone Hcl 5 Mg Tablet PO 5 mg BID RIVAS Administration Divalproex Sodium 500 mg 06/11/25 21:00 06/11/25 20:54 Divalproex Sodium Er 500 Mg Tab.24h PO 500 mg HS RIVAS Administration Gabapentin 100 mg 06/11/25 18:00 06/12/25 08:18 Gabapentin 100 Mg Capsule PO 100 mg TID RIVAS Administration Ceftriaxone Sodium 1 gm/ 50 mls @ 100 mls/hr 06/12/25 08:00 06/12/25 08:17 Sodium Chloride IVPB 100 mls/hr Q24H RIVAS Administration Azithromycin 500 mg/ Sodium 250 mls @ 250 mls/hr 06/12/25 09:00 06/12/25 09:09 Chloride IVPB 06/15/25 09:59 250 mls/hr Q24H RIVAS Administration Levetiracetam 750 mg 06/11/25 18:00 06/12/25 08:20 Levetiracetam 250 Mg Tablet PO 750 mg BID RIVAS Administration Levothyroxine Sodium 25 mcg 06/12/25 06:30 06/12/25 05:42 Levothyroxine Sodium 25 Mcg Tablet PO 25 mcg DAILY@0630 RIVAS Administration Loratadine 10 mg 06/11/25 17:09 Loratadine 10 Mg Tablet PO DAILY PRN Allergic Symptoms Melatonin 3 mg 06/11/25 17:09 06/12/25 01:35 Melatonin 3 Mg Tablet PO 3 mg HS PRN Administration Sleep Oxcarbazepine 150 mg 06/11/25 18:00 06/12/25 08:18 Oxcarbazepine 150 Mg Tablet PO 150 mg BID RIVAS Administration Oxycodone HCl 5 mg 06/11/25 18:00 06/12/25 08:19 Oxycodone Hcl (*Crx) 5 Mg Tab Ir PO 5 mg BID RIVAS Administration Polyethylene Glycol 17 gm 06/11/25 17:09 Polyethylene Glycol 3350 17 Gm Powd.Pack PO DAILY PRN Constipation Senna 8.6 mg 06/11/25 18:00 06/12/25 08:17 Sennosides 8.6 Mg Tablet PO 8.6 mg BID RIVAS Administration Thiamine HCl 100 mg 06/12/25 09:00 06/12/25 08:18 Thiamine Hcl 100 Mg Tablet PO 100 mg DAILY RIVAS Administration Trazodone HCl 25 mg 06/11/25 21:00 06/11/25 20:55 Trazodone Hcl 25 Mg Tablet PO 25 mg HS RIVAS Administration Umeclidinium [place] 1 puff 06/12/25 08:00 06/12/25 07:49 Umeclidinium [place] 62.5 Mcg Ellipta INHALATION 1 puff DAILYRT RIVAS Administration Radiology Results: ITS Impressions Head CT 06/11/25 07:52 IMPRESSION: 1. Large region of encephalomalacia involving the right middle cerebral artery vascular distribution. No acute intracranial process. 2. Interval placement of a right parietal ventricular drainage catheter with distal tip at the anterior body of the right lateral ventricle with unchanged m ild expected dilation of the right lateral ventricle related to the chronic infarct. 3. Unchanged large chronic CSF attenuation fluid collection overlying the right cerebral hemisphere consistent with chronic subdural hematoma. Chest X-Ray 06/11/25 09:00 IMPRESSION: 1. Bibasilar predominant interstitial pulmonary edema and/or pneumonitis. Labs Labs: Laboratory Results - last 24 hr 06/11/25 18:51 Nasal MRSA (PCR) Not detected
[2025-06-12 10:20] LABS: Hematocrit 37.2 % (37.0-47.0); Hemoglobin 12.2 g/dL (12.0-15.0); Immature Granulocyte Percent A 0.5 % (0-0.5); Lymphocytes Absolute Auto 2.45 K/mm3 (0.9-3.2); Mean Corpuscular HGB Conc 32.8 g/dl (32-36); Mean Corpuscular Hemoglobin 30.1 pg (26-34); Mean Corpuscular Volume 91.9 fl (80-100); Nucleated Red Blood Cells Absolute Auto 0.000 K/mm3 (0.0-0.012); Nucleated Red Blood Cells Perc 0.0 % (0.0-0.2); Platelet Count Result 308 k/mm3 (150-375); Red Blood Count 4.05 M/mm3 (4.2-5.4); White Blood Count 9.7 K/mm3 (4.5-10.0)
[2025-06-12 10:46] LABS: Alanine Aminotransferase 26 U/L (6-35); Albumin Level 3.8 g/dL (3.5-5.1); Alkaline Phosphatase 157 U/L (38-126); Anion Gap 7 mmol/L (4-12); Aspartate Amino Transferase 37 U/L (14-36); Bilirubin,Total 0.3 mg/dL (0.2-1.3); Blood Urea Nitrogen 7 mg/dL (7-17); Calcium 8.9 mg/dL (8.4-10.2); Carbon Dioxide 27 mmol/L (22-30); Chloride 99 mmol/L (98-107); Estimated CRCL calculation 56 ml/min; Estimated Glomerular Filt Rate > 60; Glucose 114 mg/dL (65-110); Magnesium 2.0 mg/dL (1.6-2.3); Potassium 4.5 mmol/L (3.4-5.0); Sodium 133 mmol/L (137-145); Total Protein 7.5 g/dL (6.3-8.2)
[2025-06-12] MEDS: ATORVASTATIN 40 MG TABLET PO (20:43)
[2025-06-12] MEDS: DIVALPROEX SODIUM ER 500 MG TAB.24H PO (20:44)
[2025-06-13] VITALS (9 sets, daily range): BP systolic 136–149; BP diastolic 72–90; PULSE 66–112; RESP 17–20; TEMP 35.9–37.1; O2SAT 93–94
[2025-06-13] MEDS: LEVOTHYROXINE SODIUM 25 MCG TABLET PO (05:35)
[2025-06-13] MEDS: ACETAMINOPHEN 325 MG TABLET PO ×2 (05:35→20:09)
[2025-06-13 06:35] LABS: Hematocrit 39.2 % (37.0-47.0); Hemoglobin 12.7 g/dL (12.0-15.0); Immature Granulocyte Percent A 0.4 % (0-0.5); Lymphocytes Absolute Auto 3.22 K/mm3 (0.9-3.2); Mean Corpuscular HGB Conc 32.4 g/dl (32-36); Mean Corpuscular Hemoglobin 30.1 pg (26-34); Mean Corpuscular Volume 92.9 fl (80-100); Nucleated Red Blood Cells Absolute Auto 0.000 K/mm3 (0.0-0.012); Nucleated Red Blood Cells Perc 0.0 % (0.0-0.2); Platelet Count Result 310 k/mm3 (150-375); Red Blood Count 4.22 M/mm3 (4.2-5.4); White Blood Count 9.7 K/mm3 (4.5-10.0)
[2025-06-13 06:58] LABS: Alanine Aminotransferase 27 U/L (6-35); Albumin Level 3.9 g/dL (3.5-5.1); Alkaline Phosphatase 143 U/L (38-126); Anion Gap 8 mmol/L (4-12); Aspartate Amino Transferase 41 U/L (14-36); Bilirubin,Total 0.4 mg/dL (0.2-1.3); Blood Urea Nitrogen 6 mg/dL (7-17); Calcium 9.0 mg/dL (8.4-10.2); Carbon Dioxide 24 mmol/L (22-30); Chloride 99 mmol/L (98-107); Estimated CRCL calculation 58 ml/min; Estimated Glomerular Filt Rate > 60; Glucose 111 mg/dL (65-110); Magnesium 2.0 mg/dL (1.6-2.3); Potassium 4.2 mmol/L (3.4-5.0); Sodium 131 mmol/L (137-145); Total Protein 7.7 g/dL (6.3-8.2)
[2025-06-13] MEDS: ASCORBIC ACID 500 MG TABLET PO ×2 (08:29→17:49)
[2025-06-13] MEDS: oxyCODONE HCL (*CRX) 5 MG TAB IR PO ×2 (08:29→17:49)
[2025-06-13] MEDS: GABAPENTIN 100 MG CAPSULE PO ×3 (08:29→17:49)
[2025-06-13] MEDS: THIAMINE HCL 100 MG TABLET PO (08:30)
[2025-06-13] MEDS: ASPIRIN 81 MG ENTERIC TABLET PO (08:30)
[2025-06-13] MEDS: cefTRIAXone 1 GM in SODIUM CHLORIDE 0.9% IV 50 ML 100 ML IVPB (08:30)
[2025-06-13] MEDS: SENNOSIDES 8.6 MG TABLET PO ×2 (08:30→17:49)
[2025-06-13] MEDS: AZITHROMYCIN IV 500 MG in SODIUM CHLORIDE 0.9% IV 250 ML IVPB (10:09)
--- NOTE | 2025-06-13 19:40 | P.PNIM_ITS ---
Progress Note: A&P Assessment and Plan (1) Acute UTI: Code(s): N39.0 - Urinary tract infection, site not specified Status: Acute Assessment and Plan: Reviewed UA Started on Rocephin Follow urine culture No evidence of pyelonephritis P.o. antibiotics once culture results (2) Chronic anticoagulation: Code(s): Z79.01 - long-term (current) use of anticoagulants Status: Chronic Assessment and Plan: Currently not on anticoagulation due to possible brain bleed (3) Hypertension: Qualifiers: Hypertension type: unspecified Qualified Code(s): I10 - Essential (primary) hypertension Code(s): I10 - Essential (primary) hypertension Status: Chronic Assessment and Plan: Not on any medication, continue to monitor (4) Hyperlipidemia: Qualifiers: Hyperlipidemia type: unspecified Qualified Code(s): E78.5 - Hyperlipidemia, unspecified Code(s): E78.5 - Hyperlipidemia, unspecified Status: Chronic Assessment and Plan: Continue atorvastatin 40 mg p.o. HS (5) Schizoaffective disorder: Code(s): F25.9 - Schizoaffective disorder, unspecified Status: Chronic Assessment and Plan: Continue Caplyta Continue Vortioxetine (6) Depression with anxiety: Code(s): F41.8 - Other specified anxiety disorders Status: Chronic Assessment and Plan: Continue BuSpar (7) Brain tumor: Code(s): D49.6 - Neoplasm of unspecified behavior of brain Status: Acute Assessment and Plan: Retrieve records from [facility] (8) Seizures: Code(s): R56.9 - Unspecified convulsions Status: Chronic Assessment and Plan: Continue home medications Keppra 750 mg p.o. b.i.d. Continue Depakote fine mg p.o. q.h.s. Continue Trileptal 150 mg p.o. b.i.d. (9) Pneumonia: Qualifiers: Laterality: bilateral Lung location: unspecified part of lung Pneumonia type: due to unspecified organism Qualified Code(s): J18.9 - Pneumonia, unspecified organism Code(s): J18.9 - Pneumonia, unspecified organism Status: Acute Assessment and Plan: RSV COVID flu negative Started on ceftriaxone and azithromycin monitor cultures MRSA negative encourage oral intake Plan History of dementia History of stroke with left-sided hemiparesis On 12/2024 she was transferred for midline shift unclear hospital course at [facility] Chronic subdural hematoma with interval placement of USED CAR RENOVATOR shunt Code status: DNR DVT prophylaxis SCDs due to previous history of brain bleed. Time Spent With Patient Time with patient: 25 - 35 minutes Subjective Date/time seen: 06/13/25 19:40 Interval history: A&O x3. She has no complaints today. Review of Systems Review of Systems: All systems reviewed & are unremarkable except as noted in HPI and below (Subjective) Exam Narrative: APPEARANCE: Well appearing, no pain, no distress, well-nourished. HEAD: normocephalic, atraumatic. EYES: PERRLA/EOMI, conjunctivae clear. NOSE: Normal no drainage NECK: Supple. No adenopathy, no masses. RESPIRATORY: Airway patent, respirations nonlabored. Clear to auscultation bilaterally, no rales, rhonchi, wheezing. CARDIOVASCULAR: Regular rate and rhythm without murmurs rubs or gallops. ABDOMINAL: Soft, nontender, nondistended, normal bowel sounds MUSCULOSKELETAL: Moves all extremities. Strength/ROM intact, No edema, No calf tenderness. NEURO: Alert. Cranial nerves II through XII intact. Left-sided weakness and left upper extremity contractures noted SKIN: Warm, dry. Normal Color PSYCHIATRIC: Normal affect/mood. Objective Data Vital Signs Vital Signs: Vital Signs - 24 hr 06/12/25 20:00 06/12/25 22:11 06/13/25 00:00 Temperature 97.8 F Pulse Rate 95 87 66 Respiratory Rate 18 Blood Pressure 116/58 L Pulse Oximetry 93 Oxygen Delivery 06/13/25 04:00 06/13/25 05:09 06/13/25 08:00 Temperature 97.1 F L Pulse Rate 81 87 Respiratory Rate 18 Blood Pressure 149/81 H Pulse Oximetry 94 Oxygen Delivery Room Air 06/13/25 08:00 06/13/25 12:00 06/13/25 14:00 Temperature 98.7 F Pulse Rate 93 97 104 H Respiratory Rate 20 Blood Pressure 136/90 Pulse Oximetry 93 Oxygen Delivery 06/13/25 16:00 Temperature Pulse Rate 112 H Respiratory Rate Blood Pressure Pulse Oximetry Oxygen Delivery Intake/Output Intake/Output: Intake & Output 06/10/25 06/11/25 06/12/25 06/13/25 23:59 23:59 23:59 23:59 Intake Total 1260 1520 2220 Output Total 80 Balance 1180 1520 2220 Meds/Results Medications: Active Medications Generic Name Dose Route Start Last Admin Trade Name Freq PRN Reason Stop Dose Admin Acetaminophen 325 mg 06/11/25 17:09 06/13/25 05:35 Acetaminophen 325 Mg Tablet PO 325 mg Q6-8H PRN Administration Pain (Scale Score 1-3) Albuterol 2 puff 06/11/25 17:09 Albuterol Sulfate (*Sp) Aerosol 1 Puff INHALATION Q4-6H PRN Shortness Of Breath Or Wheezing Ascorbic Acid 500 mg 06/12/25 09:00 06/13/25 17:49 Ascorbic Acid 500 Mg Tablet PO 500 mg BID RIVAS Administration Aspirin 81 mg 06/12/25 09:00 06/13/25 08:30 Aspirin 81 Mg Enteric Tablet PO 81 mg DAILY RIVAS Administration Atorvastatin Calcium 40 mg 06/11/25 21:00 06/12/25 20:43 Atorvastatin 40 Mg Tablet PO 40 mg HS RIVAS Administration Buspirone HCl 5 mg 06/11/25 18:00 06/13/25 17:49 Buspirone Hcl 5 Mg Tablet PO 5 mg BID RIVAS Administration Divalproex Sodium 500 mg 06/11/25 21:00 06/12/25 20:44 Divalproex Sodium Er 500 Mg Tab.24h PO 500 mg HS RIVAS Administration Gabapentin 100 mg 06/11/25 18:00 06/13/25 17:49 Gabapentin 100 Mg Capsule PO 100 mg TID RIVAS Administration Ceftriaxone Sodium 1 gm/ 50 mls @ 100 mls/hr 06/12/25 08:00 06/13/25 08:30 Sodium Chloride IVPB 100 mls/hr Q24H RIVAS Administration Azithromycin 500 mg/ Sodium 250 mls @ 250 mls/hr 06/12/25 09:00 06/13/25 10:09 Chloride IVPB 06/15/25 09:59 250 mls/hr Q24H RIVAS Administration Levetiracetam 750 mg 06/11/25 18:00 06/13/25 17:49 Levetiracetam 250 Mg Tablet PO 750 mg BID RIVAS Administration Levothyroxine Sodium 25 mcg 06/12/25 06:30 06/13/25 05:35 Levothyroxine Sodium 25 Mcg Tablet PO 25 mcg DAILY@0630 RIVAS Administration Loratadine 10 mg 06/11/25 17:09 Loratadine 10 Mg Tablet PO DAILY PRN Allergic Symptoms Melatonin 3 mg 06/11/25 17:09 06/12/25 01:35 Melatonin 3 Mg Tablet PO 3 mg HS PRN Administration Sleep Oxcarbazepine 150 mg 06/11/25 18:00 06/13/25 17:49 Oxcarbazepine 150 Mg Tablet PO 150 mg BID RIVAS Administration Oxycodone HCl 5 mg 06/11/25 18:00 06/13/25 17:49 Oxycodone Hcl (*Crx) 5 Mg Tab Ir PO 5 mg BID RIVAS Administration Polyethylene Glycol 17 gm 06/11/25 17:09 Polyethylene Glycol 3350 17 Gm Powd.Pack PO DAILY PRN Constipation Senna 8.6 mg 06/11/25 18:00 06/13/25 17:49 Sennosides 8.6 Mg Tablet PO 8.6 mg BID RIVAS Administration Thiamine HCl 100 mg 06/12/25 09:00 06/13/25 08:30 Thiamine Hcl 100 Mg Tablet PO 100 mg DAILY RIVAS Administration Trazodone HCl 25 mg 06/11/25 21:00 06/12/25 20:43 Trazodone Hcl 25 Mg Tablet PO 25 mg HS RIVAS Administration Umeclidinium [place] 1 puff 06/12/25 08:00 06/13/25 08:21 Umeclidinium [place] 62.5 Mcg Ellipta INHALATION Not Given DAILYRT [facility] Radiology Results: ITS Impressions Head CT 06/11/25 07:52 IMPRESSION: 1. Large region of encephalomalacia involving the right middle cerebral artery vascular distribution. No acute intracranial process. 2. Interval placement of a right parietal ventricular drainage catheter with distal tip at the anterior body of the right lateral ventricle with unchanged mild expected dilation of the right lateral ventricle related to the chronic infarct. 3. Unchanged large chronic CSF attenuation fluid collection overlying the right cerebral hemisphere consistent with chronic subdural hematoma. Chest X-Ray 06/11/25 09:00 IMPRESSION: 1. Bibasilar predominant interstitial pulmonary edema and/or pneumonitis. Labs Labs: Laboratory Results - last 24 hr 06/13/25 06:21 WBC 9.7 RBC 4.22 Hgb 12.7 Hct 39.2 MCV 92.9 MCH 30.1 MCHC 32.4 RDW 14.2 Plt Count 310 MPV 8.8 Immature Gran % (Auto) 0.4 Neut % (Auto) 58.0 Lymph % (Auto) 33.2 [place] % (Auto) 6.2 Eos % (Auto) 2.0 Baso % (Auto) 0.2 Lymph # (Auto) 3.22 H [place] # (Auto) 0.6 Eos # (Auto) 0.2 Baso # (Auto) 0.0 Abs Immat Gran (auto) 0.04 H Absolute Neuts (auto) 5.6 Absolute Nucleated RBC 0.000 Nucleated RBC % 0.0 Sodium 131 L Potassium 4.2 Chloride 99 Carbon Dioxide 24 Anion Gap 8 BUN 6 L Creatinine 0.78 Estim Creat Clear Calc 58 Estimated GFR > 60 Glucose 111 H Calcium 9.0 Magnesium 2.0 Total Bilirubin 0.4 AST 41 H ALT 27 Alkaline Phosphatase 143 H Total Protein 7.7 Albumin 3.9
[2025-06-13] MEDS: DIVALPROEX SODIUM ER 500 MG TAB.24H PO (20:09)
[2025-06-13] MEDS: MELATONIN 3 MG TABLET PO (20:09)
[2025-06-13] MEDS: ATORVASTATIN 40 MG TABLET PO (20:09)
[2025-06-14] VITALS (8 sets, daily range): BP systolic 123–155; BP diastolic 72–86; PULSE 81–106; RESP 15–20; TEMP 36.2–37.4; O2SAT 92–97
[2025-06-14] MEDS: LIDOCAINE 5% PATCH 1 PATCH TRANSDERM (00:16)
[2025-06-14] MEDS: ACETAMINOPHEN 325 MG TABLET PO ×2 (05:31→20:30)
[2025-06-14] MEDS: LEVOTHYROXINE SODIUM 25 MCG TABLET PO (05:32)
[2025-06-14 06:12] LABS: Hematocrit 39.0 % (37.0-47.0); Hemoglobin 12.7 g/dL (12.0-15.0); Immature Granulocyte Percent A 0.4 % (0-0.5); Lymphocytes Absolute Auto 3.10 K/mm3 (0.9-3.2); Mean Corpuscular HGB Conc 32.6 g/dl (32-36); Mean Corpuscular Hemoglobin 30.5 pg (26-34); Mean Corpuscular Volume 93.5 fl (80-100); Nucleated Red Blood Cells Absolute Auto 0.000 K/mm3 (0.0-0.012); Nucleated Red Blood Cells Perc 0.0 % (0.0-0.2); Platelet Count Result 312 k/mm3 (150-375); Red Blood Count 4.17 M/mm3 (4.2-5.4); White Blood Count 10.5 K/mm3 (4.5-10.0)
[2025-06-14 06:41] LABS: Anion Gap 7 mmol/L (4-12); Blood Urea Nitrogen 4 mg/dL (7-17); Calcium 8.8 mg/dL (8.4-10.2); Carbon Dioxide 25 mmol/L (22-30); Chloride 100 mmol/L (98-107); Estimated CRCL calculation 61 ml/min; Estimated Glomerular Filt Rate > 60; Glucose 111 mg/dL (65-110); Magnesium 1.9 mg/dL (1.6-2.3); Potassium 3.8 mmol/L (3.4-5.0); Sodium 132 mmol/L (137-145)
[2025-06-14] MEDS: UMECLIDINIUM BROMIDE 62.5 MCG ELLIPTA 1 PUFF INHALATION (07:42)
[2025-06-14] MEDS: ASPIRIN 81 MG ENTERIC TABLET PO (08:03)
[2025-06-14] MEDS: SENNOSIDES 8.6 MG TABLET PO ×2 (08:03→17:26)
[2025-06-14] MEDS: ASCORBIC ACID 500 MG TABLET PO ×2 (08:03→17:27)
[2025-06-14] MEDS: cefTRIAXone 1 GM in SODIUM CHLORIDE 0.9% IV 50 ML 100 ML IVPB (08:03)
[2025-06-14] MEDS: THIAMINE HCL 100 MG TABLET PO (08:03)
[2025-06-14] MEDS: oxyCODONE HCL (*CRX) 5 MG TAB IR PO ×2 (08:03→17:27)
[2025-06-14] MEDS: GABAPENTIN 100 MG CAPSULE PO ×3 (08:04→17:26)
[2025-06-14] MEDS: AZITHROMYCIN IV 500 MG in SODIUM CHLORIDE 0.9% IV 250 ML IVPB (09:07)
--- NOTE | 2025-06-14 17:44 | P.PNIM_ITS ---
Progress Note: A&P Assessment and Plan (1) Acute UTI: Code(s): N39.0 - Urinary tract infection, site not specified Status: Acute Assessment and Plan: Reviewed UA Started on Rocephin Follow urine culture, unclear if there would be further sensitivities, will attempt to contact lab tomorrow. No evidence of pyelonephritis P.o. antibiotics once culture results (2) Chronic anticoagulation: Code(s): Z79.01 - [facility] (current) use of anticoagulants Status: Chronic Assessment and Plan: Currently not on anticoagulation due to possible brain bleed (3) Hypertension: Qualifiers: Hypertension type: unspecified Qualified Code(s): I10 - Essential (primary) hypertension Code(s): I10 - Essential (primary) hypertension Status: Chronic Assessment and Plan: Not on any medication, continue to monitor (4) Hyperlipidemia: Qualifiers: Hyperlipidemia type: unspecified Qualified Code(s): E78.5 - Hyperlipidemia, unspecified Code(s): E78.5 - Hyperlipidemia, unspecified Status: Chronic Assessment and Plan: Continue atorvastatin 40 mg p.o. HS (5) Schizoaffective disorder: Code(s): F25.9 - Schizoaffective disorder, unspecified Status: Chronic Assessment and Plan: Continue Caplyta Continue Vortioxetine (6) Depression with anxiety: Code(s): F41.8 - Other specified anxiety disorders Status: Chronic Assessment and Plan: Continue BuSpar (7) Brain tumor: Code(s): D49.6 - Neoplasm of unspecified behavior of brain Status: Acute Assessment and Plan: Retrieve records from [facility] (8) Seizures: Code(s): R56.9 - Unspecified convulsions Status: Chronic Assessment and Plan: Continue home medications Keppra 750 mg p.o. b.i.d. Continue Depakote fine mg p.o. q.h.s. Continue Trileptal 150 mg p.o. b.i.d. (9) Pneumonia: Qualifiers: Laterality: bilateral Lung location: unspecified part of lung Pneumonia type: due to unspecified organism Qualified Code(s): J18.9 - Pneumonia, unspecified organism Code(s): J18.9 - Pneumonia, unspecified organism Status: Acute Assessment and Plan: RSV COVID flu negative Started on ceftriaxone and azithromycin monitor cultures MRSA negative encourage oral intake Plan History of dementia History of stroke with left-sided hemiparesis On 12/2024 she was transferred for midline shift unclear hospital course at [facility] Chronic subdural hematoma with interval placement of 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 Time Spent With Patient Time with patient: 25 - 35 minutes Subjective Date/time seen: 06/14/25 17:44 Interval history: A&O x3. She has no complaints today. Review of Systems Review of Systems: All systems reviewed & are unremarkable except as noted in HPI and below (Subjective) Exam Narrative: APPEARANCE: Well appearing, no pain, no distress, well-nourished. HEAD: normocephalic, atraumatic. EYES: PERRLA/EOMI, conjunctivae clear. NOSE: Normal no drainage NECK: Supple. No adenopathy, no masses. RESPIRATORY: Airway patent, respirations nonlabored. Clear to auscultation bilaterally, no rales, rhonchi, wheezing. CARDIOVASCULAR: Regular rate and rhythm without murmurs rubs or gallops. ABDOMINAL: Soft, nontender, nondistended, normal bowel sounds MUSCULOSKELETAL: Moves all extremities. Strength/ROM intact, No edema, No calf tenderness. NEURO: Alert. Cranial nerves II through XII intact. Left-sided weakness and left upper extremity contractures noted SKIN: Warm, dry. Normal Color PSYCHIATRIC: Normal affect/mood. Objective Data Vital Signs Vital Signs: Vital Signs - 24 hr 06/13/25 19:50 06/13/25 20:00 06/14/25 00:00 Temperature 96.7 F L Pulse Rate 91 88 81 Respiratory Rate 17 Blood Pressure 145/72 H Pulse Oximetry 94 Oxygen Delivery 06/14/25 04:00 06/14/25 04:41 06/14/25 07:45 Temperature 97.5 F L Pulse Rate 101 H 91 86 Respiratory Rate 17 15 Blood Pressure 151/86 H Pulse Oximetry 97 Oxygen Delivery 06/14/25 08:00 06/14/25 08:00 06/14/25 12:00 Temperature Pulse Rate 94 94 106 H Respiratory Rate Blood Pressure Pulse Oximetry Oxygen Delivery Room Air 06/14/25 14:00 Temperature 99.3 F Pulse Rate 100 Respiratory Rate 18 Blood Pressure 155/83 H Pulse Oximetry 92 Oxygen Delivery Intake/Output Intake/Output: Intake & Output 06/11/25 06/12/25 06/13/25 06/14/25 23:59 23:59 23:59 23:59 Intake Total 1260 1520 2520 720 Output Total 80 Balance 1180 1520 2520 720 Meds/Results Medications: Active Medications Generic Name Dose Route Start Last Admin Trade Name Freq PRN Reason Stop Dose Admin Acetaminophen 325 mg 06/11/25 17:09 06/14/25 05:31 Acetaminophen 325 Mg Tablet PO 325 mg Q6-8H PRN Administration Pain (Scale Score 1-3) Albuterol 2 puff 06/11/25 17:09 Albuterol Sulfate (*Sp) Aerosol 1 Puff INHALATION Q4-6H PRN Shortness Of Breath Or Wheezing Ascorbic Acid 500 mg 06/12/25 09:00 06/14/25 17:27 Ascorbic Acid 500 Mg Tablet PO 500 mg BID RIVAS Administration Aspirin 81 mg 06/12/25 09:00 06/14/25 08:03 Aspirin 81 Mg Enteric Tablet PO 81 mg DAILY RIVAS Administration Atorvastatin Calcium 40 mg 06/11/25 21:00 06/13/25 20:09 Atorvastatin 40 Mg Tablet PO 40 mg HS RIVAS Administration Buspirone HCl 5 mg 06/11/25 18:00 06/14/25 17:26 Buspirone Hcl 5 Mg Tablet PO 5 mg BID RIVAS Administration Divalproex Sodium 500 mg 06/11/25 21:00 06/13/25 20:09 Divalproex Sodium Er 500 Mg Tab.24h PO 500 mg HS RIVAS Administration Gabapentin 100 mg 06/11/25 18:00 06/14/25 17:26 Gabapentin 100 Mg Capsule PO 100 mg TID RIVAS Administration Ceftriaxone Sodium 1 gm/ 50 mls @ 100 mls/hr 06/12/25 08:00 06/14/25 08:03 Sodium Chloride IVPB 100 mls/hr Q24H RIVAS Administration Azithromycin 500 mg/ Sodium 250 mls @ 250 mls/hr 06/12/25 09:00 06/14/25 09:07 Chloride IVPB 06/15/25 09:59 250 mls/hr Q24H RIVAS Administration Levetiracetam 750 mg 06/11/25 18:00 06/14/25 17:26 Levetiracetam 250 Mg Tablet PO 750 mg BID RIVAS Administration Levothyroxine Sodium 25 mcg 06/12/25 06:30 06/14/25 05:32 Levothyroxine Sodium 25 Mcg Tablet PO 25 mcg DAILY@0630 RIVAS Administration Lidocaine 1 patch 06/13/25 23:50 06/14/25 00:16 Lidocaine 5% Patch TRANSDERM 1 patch DAILY RIVAS Administration Loratadine 10 mg 06/11/25 17:09 Loratadine 10 Mg Tablet PO DAILY PRN Allergic Symptoms Melatonin 3 mg 06/11/25 17:09 06/13/25 20:09 Melatonin 3 Mg Tablet PO 3 mg HS PRN Administration Sleep Oxcarbazepine 150 mg 06/11/25 18:00 06/14/25 17:26 Oxcarbazepine 150 Mg Tablet PO 150 mg BID RIVAS Administration Oxycodone HCl 5 mg 06/11/25 18:00 06/14/25 17:27 Oxycodone Hcl (*Crx) 5 Mg Tab Ir PO 5 mg BID RIVAS Administration Polyethylene Glycol 17 gm 06/11/25 17:09 Polyethylene Glycol 3350 17 Gm Powd.Pack PO DAILY PRN Constipation Senna 8.6 mg 06/11/25 18:00 06/14/25 17:26 Sennosides 8.6 Mg Tablet PO 8.6 mg BID RIVAS Administration Thiamine HCl 100 mg 06/12/25 09:00 06/14/25 08:03 Thiamine Hcl 100 Mg Tablet PO 100 mg DAILY RIVAS Administration Trazodone HCl 25 mg 06/11/25 21:00 06/13/25 20:09 Trazodone Hcl 25 Mg Tablet PO 25 mg HS RIVAS Administration Umeclidinium [place] 1 puff 06/12/25 08:00 06/14/25 07:42 Umeclidinium [place] 62.5 Mcg Ellipta INHALATION 1 puff DAILYRT RIVAS Administration Radiology Results: ITS Impressions Head CT 06/11/25 07:52 IMPRESSION: 1. Large region of encephalomalacia involving the right middle cerebral artery vascular distribution. No acute intracranial process. 2. Interval placement of a right parietal ventricular drainage catheter with distal tip at the anterior body of the right lateral ventricle with unchanged mild expected dilation of the right lateral ventricle related to the chronic infarct. 3. Unchanged large chronic CSF attenuation fluid collection overlying the right cerebral hemisphere consistent with chronic subdural hematoma. Chest X-Ray 06/11/25 09:00 IMPRESSION: 1. Bibasilar predominant interstitial pulmonary edema and/or pneumonitis. Labs Labs: Laboratory Results - last 24 hr 06/14/25 05:45 WBC 10.5 H RBC 4.17 L Hgb 12.7 Hct 39.0 MCV 93.5 MCH 30.5 MCHC 32.6 RDW 14.0 Plt Count 312 MPV 9.0 Immature Gran % (Auto) 0.4 Neut % (Auto) 61.5 Lymph % (Auto) 29.4 [place] % (Auto) 6.3 Eos % (Auto) 2.1 Baso % (Auto) 0.3 Lymph # (Auto) 3.10 [place] # (Auto) 0.7 H Eos # (Auto) 0.2 Baso # (Auto) 0.0 Abs Immat Gran (auto) 0.04 H Absolute Neuts (auto) 6.5 Absolute Nucleated RBC 0.000 Nucleated RBC % 0.0 Sodium 132 L Potassium 3.8 Chloride 100 Carbon Dioxide 25 Anion Gap 7 BUN 4 L Creatinine 0.74 Estim Creat Clear Calc 61 Estimated GFR > 60 Glucose 111 H Calcium 8.8 Magnesium 1.9
[2025-06-14] MEDS: DIVALPROEX SODIUM ER 500 MG TAB.24H PO (20:29)
[2025-06-14] MEDS: MELATONIN 3 MG TABLET PO (20:30)
[2025-06-14] MEDS: ATORVASTATIN 40 MG TABLET PO (20:30)
[2025-06-15] MEDS: ACETAMINOPHEN 325 MG TABLET PO (05:49)
[2025-06-15] MEDS: LEVOTHYROXINE SODIUM 25 MCG TABLET PO (05:50)
[2025-06-15 06:00] VITALS: BP 151/94; PULSE 85; RESP 16; TEMP 36.2; O2SAT 93
[2025-06-15 07:11] LABS: Hematocrit 40.4 % (37.0-47.0); Hemoglobin 13.1 g/dL (12.0-15.0); Immature Granulocyte Percent A 0.3 % (0-0.5); Lymphocytes Absolute Auto 2.44 K/mm3 (0.9-3.2); Mean Corpuscular HGB Conc 32.4 g/dl (32-36); Mean Corpuscular Hemoglobin 30.4 pg (26-34); Mean Corpuscular Volume 93.7 fl (80-100); Nucleated Red Blood Cells Absolute Auto 0.000 K/mm3 (0.0-0.012); Nucleated Red Blood Cells Perc 0.0 % (0.0-0.2); Platelet Count Result 308 k/mm3 (150-375); Red Blood Count 4.31 M/mm3 (4.2-5.4); White Blood Count 11.6 K/mm3 (4.5-10.0)
[2025-06-15 07:46] LABS: Procalcitonin 0.1 ng/mL
[2025-06-15 07:52] LABS: Anion Gap 7 mmol/L (4-12); Blood Urea Nitrogen 5 mg/dL (7-17); Calcium 9.2 mg/dL (8.4-10.2); Carbon Dioxide 27 mmol/L (22-30); Chloride 100 mmol/L (98-107); Estimated CRCL calculation 58 ml/min; Estimated Glomerular Filt Rate > 60; Glucose 116 mg/dL (65-110); Magnesium 2.0 mg/dL (1.6-2.3); Potassium 3.9 mmol/L (3.4-5.0); Sodium 134 mmol/L (137-145)
[2025-06-15 08:00] VITALS: PULSE 86; RESP 15; O2SAT 93
[2025-06-15] MEDS: SENNOSIDES 8.6 MG TABLET PO ×2 (08:03→16:40)
[2025-06-15] MEDS: LIDOCAINE 5% PATCH 1 PATCH TRANSDERM (08:03)
[2025-06-15] MEDS: ASCORBIC ACID 500 MG TABLET PO ×2 (08:03→16:41)
[2025-06-15] MEDS: GABAPENTIN 100 MG CAPSULE PO ×3 (08:03→16:40)
[2025-06-15] MEDS: oxyCODONE HCL (*CRX) 5 MG TAB IR PO ×2 (08:03→16:41)
[2025-06-15] MEDS: ASPIRIN 81 MG ENTERIC TABLET PO (08:03)
[2025-06-15] MEDS: cefTRIAXone 1 GM in SODIUM CHLORIDE 0.9% IV 50 ML 100 ML IVPB (08:04)
[2025-06-15] MEDS: THIAMINE HCL 100 MG TABLET PO (08:13)
[2025-06-15] MEDS: UMECLIDINIUM BROMIDE 62.5 MCG ELLIPTA 1 PUFF INHALATION (08:42)
[2025-06-15 08:43] VITALS: PULSE 86; RESP 15
[2025-06-15] MEDS: AZITHROMYCIN IV 500 MG in SODIUM CHLORIDE 0.9% IV 250 ML IVPB (09:20)
--- NOTE | 2025-06-15 12:04 | PC.NURSE ---
On 06/15/25, the student, [Zaina Rodrgiuez ], provided care and completed [facility] documentation on this patient. I have reviewed the student's documentation and agree with the findings.
[2025-06-15] MEDS: NITROFURANTOIN MONOHYD MACROCR 100 MG CAP PO ×2 (13:09→20:24)
[2025-06-15 14:40] VITALS: BP 139/92; PULSE 108; RESP 17; TEMP 36.1; O2SAT 95
--- NOTE | 2025-06-15 16:12 | P.PNIM_ITS ---
Progress Note: A&P Assessment and Plan (1) Acute UTI: Code(s): N39.0 - Urinary tract infection, site not specified Status: Acute Assessment and Plan: Started on Rocephin on 06/12/2025 Ceftriaxone transition to Augmentin on 06/16/2025 to complete 7 days. Group B Streptococcus Macrobid started on 06/15/2025 to complete 5 day course. E coli White blood cells increasing since 06/14/2025, possibly due to antibiotic under treatment, sensitivities finally back. Continue to trend WBC and check procalcitonin tomorrow. She had some bladder pain today, afebrile although. (2) Chronic anticoagulation: Code(s): Z79.01 - [facility] (current[facility] use of anticoagulants Status: Chronic Assessment and Plan: Currently not on anticoagulation due to possible brain bleed (3) Hypertension: Qualifiers: Hypertension type: unspecified Qualified Code(s): I10 - Essential (primary) hypertension Code(s): I10 - Essential (primary) hypertension Status: Chronic Assessment and Plan: Not on medications prior to admission, currently at goal. Continue to monitor. (4) Hyperlipidemia: Qualifiers: Hyperlipidemia type: unspecified Qualified Code(s): E78.5 - Hyperlipidemia, unspecified Code(s): E78.5 - Hyperlipidemia, unspecified Status: Chronic Assessment and Plan: Continue atorvastatin 40 mg p.o. HS (5) Schizoaffective disorder: Code(s): F25.9 - Schizoaffective disorder, unspecified Status: Chronic Assessment and Plan: Continue Caplyta Continue Vortioxetine (6) Depression with anxiety: Code(s): F41.8 - Other specified anxiety disorders Status: Chronic Assessment and Plan: Continue BuSpar (7) Brain tumor: Code(s): D49.6 - Neoplasm of unspecified behavior of brain Status: Acute Assessment and Plan: Retrieve records from [facility] (8) Seizures: Code(s): R56.9 - Unspecified convulsions Status: Chronic Assessment and Plan: Continue home medications Keppra 750 mg p.o. b.i.d. Continue Depakote mg p.o. q.h.s. Continue Trileptal 150 mg p.o. b.i.d. (9) Pneumonia: Qualifiers: Laterality: bilateral Lung location: unspecified part of lung Pneumonia type: due to unspecified organism Qualified Code(s): J18.9 - Pneumonia, unspecified organism Code(s): J18.9 - Pneumonia, unspecified organism Status: Acute Assessment and Plan: RSV COVID flu negative MRSA negative Received ceftriaxone and azithromycin. No shortness of breath or cough. 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 Time Spent With Patient Time with patient: Greater than 35 minutes Subjective Date/time seen: 06/15/25 16:12 Interval history: A&O x3. Reports bladder pain. Denies fever. Review of Systems Review of Systems: All systems reviewed & are unremarkable except as noted in HPI and below (Subjective) Exam Const: General: comfortable and no acute distress Other: Distracted HENMT: Mouth: Yes moist mucous membranes Eyes: Pupils: Equal, round and reactive pupils present Neck: Neck: supple Resp: Effort & Inspection: normal respiratory effort Auscultation: clear to auscultation bilaterally Cardio: Rate: regular rate Rhythm: regular rhythm GI: GI Palp: Yes Soft to palpation and No Tenderness to palpation present (GI) : Other: Bladder tender to palpation Objective Data Vital Signs Vital Signs: Vital Signs - 24 hr 06/14/25 22:00 06/15/25 06:00 06/15/25 08:00 Temperature 97.2 F L 97.2 F L Pulse Rate 88 85 86 Respiratory Rate 20 16 15 Blood Pressure 123/72 151/94 H Pulse Oximetry 97 93 93 Oxygen Delivery Room Air 06/15/25 08:43 06/15/25 14:40 Temperature 97.0 F L Pulse Rate 86 108 H Respiratory Rate 15 17 Blood Pressure 139/92 H Pulse Oximetry 95 Oxygen Delivery Intake/Output Intake/Output: Intake & Output 06/12/25 06/13/25 06/14/25 06/15/25 23:59 23:59 23:59 23:59 Intake Total 1520 2520 1740 1020 Balance 1520 2520 1740 1020 Meds/Results Medications: Active Medications Generic Name Dose Route Start Last Admin Trade Name Freq PRN Reason Stop Dose Admin Acetaminophen 325 mg 06/11/25 17:09 06/15/25 05:49 Acetaminophen 325 Mg Tablet PO 325 mg Q6-8H PRN Administration Pain (Scale Score 1-3) Albuterol 2 puff 06/11/25 17:09 Albuterol Sulfate (*Sp) Aerosol 1 Puff INHALATION Q4-6H PRN Shortness Of Breath Or Wheezing Amoxicillin/Clavulanate Potassium 1 tablet 06/16/25 09:00 Amoxicillin/Clavulanate K 875-125 Mg Tab PO 06/17/25 21:01 Q12HR RIVAS Ascorbic Acid 500 mg 06/12/25 09:00 06/15/25 08:03 Ascorbic Acid 500 Mg Tablet PO 500 mg BID RIVAS Administration Aspirin 81 mg 06/12/25 09:00 06/15/25 08:03 Aspirin 81 Mg Enteric Tablet PO 81 mg DAILY RIVAS Administration Atorvastatin Calcium 40 mg 06/11/25 21:00 06/14/25 20:30 Atorvastatin 40 Mg Tablet PO 40 mg HS RIVAS Administration Buspirone HCl 5 mg 06/11/25 18:00 06/15/25 08:03 Buspirone Hcl 5 Mg Tablet PO 5 mg BID RIVAS Administration Divalproex Sodium 500 mg 06/11/25 21:00 06/14/25 20:29 Divalproex Sodium Er 500 Mg Tab.24h PO 500 mg HS RIVAS Administration Gabapentin 100 mg 06/11/25 18:00 06/15/25 12:13 Gabapentin 100 Mg Capsule PO 100 mg TID RIVAS Administration Levetiracetam 750 mg 06/11/25 18:00 06/15/25 08:02 Levetiracetam 250 Mg Tablet PO 750 mg BID RIVAS Administration Levothyroxine Sodium 25 mcg 06/12/25 06:30 06/15/25 05:50 Levothyroxine Sodium 25 Mcg Tablet PO 25 mcg DAILY@0630 RIVAS Administration Lidocaine 1 patch 06/13/25 23:50 06/15/25 08:03 Lidocaine 5% Patch TRANSDERM 1 patch DAILY RIVAS Administration Loratadine 10 mg 06/11/25 17:09 Loratadine 10 Mg Tablet PO DAILY PRN Allergic Symptoms Melatonin 3 mg 06/11/25 17:09 06/14/25 20:30 Melatonin 3 Mg Tablet PO 3 mg HS PRN Administration Sleep Nitrofurantoin Macrocrystals 100 mg 06/15/25 12:35 06/15/25 13:09 Nitrofurantoin Monohyd Macrocr 100 Mg Cap PO 06/19/25 21:01 100 mg Q12HR RIVAS Administration Oxcarbazepine 150 mg 06/11/25 18:00 06/15/25 08:02 Oxcarbazepine 150 Mg Tablet PO 150 mg BID RIVAS Administration Oxycodone HCl 5 mg 06/11/25 18:00 06/15/25 08:03 Oxycodone Hcl (*Crx) 5 Mg Tab Ir PO 5 mg BID RIVAS Administration Polyethylene Glycol 17 gm 06/11/25 17:09 Polyethylene Glycol 3350 17 Gm Powd.Pack PO DAILY PRN Constipation Senna 8.6 mg 06/11/25 18:00 06/15/25 08:03 Sennosides 8.6 Mg Tablet PO 8.6 mg BID RIVAS Administration Thiamine HCl 100 mg 06/12/25 09:00 06/15/25 08:13 Thiamine Hcl 100 Mg Tablet PO 100 mg DAILY RIVAS Administration Trazodone HCl 25 mg 06/11/25 21:00 06/14/25 20:30 Trazodone Hcl 25 Mg Tablet PO 25 mg HS RIVAS Administration Umeclidinium [place] 1 puff 06/12/25 08:00 06/15/25 08:42 Umeclidinium [place] 62.5 Mcg Ellipta INHALATION 1 puff DAILYRT RIVAS Administration Radiology Results: ITS Impressions Head CT 06/11/25 07:52 IMPRESSION: 1. Large region of encephalomalacia involving the right middle cerebral artery vascular distribution. No acute intracranial process. 2. Interval placement of a right parietal ventricular drainage catheter with distal tip at the anterior body of the right lateral ventricle with unchanged mild expected dilation of the right lateral ventricle related to the chronic infarct. 3. Unchanged large chronic CSF attenuation fluid collection overlying the right cerebral hemisphere consistent with chronic subdural hematoma. Chest X-Ray 06/11/25 09:00 IMPRESSION: 1. Bibasilar predominant interstitial pulmonary edema and/or pneumonitis. Labs Labs: Laboratory Results - last 24 hr 06/15/25 06:49 WBC 11.6 H RBC 4.31 Hgb 13.1 Hct 40.4 MCV 93.7 MCH 30.4 MCHC 32.4 RDW 13.9 Plt Count 308 MPV 9.0 Immature Gran % (Auto) 0.3 Neut % (Auto) 71.5 Lymph % (Auto) 21.0 [place] % (Auto) 5.3 Eos % (Auto) 1.6 Baso % (Auto) 0.3 Lymph # (Auto) 2.44 [place] # (Auto) 0.6 Eos # (Auto) 0.2 Baso # (Auto) 0.0 Abs Immat Gran (auto) 0.03 Absolute Neuts (auto) 8.3 H Absolute Nucleated RBC 0.000 Nucleated RBC % 0.0 Sodium 134 L Potassium 3.9 Chloride 100 Carbon Dioxide 27 Anion Gap 7 BUN 5 L Creatinine 0.78 Estim Creat Clear Calc 58 Estimated GFR > 60 Glucose 116 H Calcium 9.2 Magnesium 2.0 Procalcitonin 0.1
[2025-06-15] MEDS: ATORVASTATIN 40 MG TABLET PO (20:23)
[2025-06-15] MEDS: DIVALPROEX SODIUM ER 500 MG TAB.24H PO (20:23)
[2025-06-15 21:00] VITALS: O2SAT 95
[2025-06-15 22:00] VITALS: BP 98/65; PULSE 99; RESP 20; TEMP 36.7; O2SAT 92
[2025-06-16] MEDS: LEVOTHYROXINE SODIUM 25 MCG TABLET PO (05:32)
[2025-06-16 06:00] VITALS: BP 124/68; PULSE 110; RESP 20; TEMP 36.7; O2SAT 94
[2025-06-16 06:11] LABS: Hematocrit 43.1 % (37.0-47.0); Hemoglobin 13.6 g/dL (12.0-15.0); Immature Granulocyte Percent A 0.5 % (0-0.5); Lymphocytes Absolute Auto 3.15 K/mm3 (0.9-3.2); Mean Corpuscular HGB Conc 31.6 g/dl (32-36); Mean Corpuscular Hemoglobin 30.4 pg (26-34); Mean Corpuscular Volume 96.2 fl (80-100); Nucleated Red Blood Cells Absolute Auto 0.000 K/mm3 (0.0-0.012); Nucleated Red Blood Cells Perc 0.0 % (0.0-0.2); Platelet Count Result 287 k/mm3 (150-375); Red Blood Count 4.48 M/mm3 (4.2-5.4); White Blood Count 12.8 K/mm3 (4.5-10.0)
[2025-06-16 06:35] LABS: Alanine Aminotransferase 20 U/L (6-35); Albumin Level 3.8 g/dL (3.5-5.1); Alkaline Phosphatase 144 U/L (38-126); Anion Gap 10 mmol/L (4-12); Aspartate Amino Transferase 33 U/L (14-36); Bilirubin,Total 0.5 mg/dL (0.2-1.3); Blood Urea Nitrogen 5 mg/dL (7-17); Calcium 8.7 mg/dL (8.4-10.2); Carbon Dioxide 19 mmol/L (22-30); Chloride 100 mmol/L (98-107); Estimated CRCL calculation 65 ml/min; Estimated Glomerular Filt Rate > 60; Glucose 121 mg/dL (65-110); Magnesium 2.2 mg/dL (1.6-2.3); Potassium 3.7 mmol/L (3.4-5.0); Sodium 129 mmol/L (137-145); Total Protein 7.7 g/dL (6.3-8.2)
[2025-06-16 06:41] LABS: Procalcitonin 0.1 ng/mL
[2025-06-16 08:19] VITALS: RESP 15
[2025-06-16] MEDS: UMECLIDINIUM BROMIDE 62.5 MCG ELLIPTA 1 PUFF INHALATION (08:19)
[2025-06-16] MEDS: LIDOCAINE 5% PATCH 1 PATCH TRANSDERM (08:26)
[2025-06-16] MEDS: GABAPENTIN 100 MG CAPSULE PO ×3 (08:27→17:18)
[2025-06-16] MEDS: ASPIRIN 81 MG ENTERIC TABLET PO (08:27)
[2025-06-16] MEDS: oxyCODONE HCL (*CRX) 5 MG TAB IR PO ×2 (08:27→17:18)
[2025-06-16] MEDS: SENNOSIDES 8.6 MG TABLET PO ×2 (08:27→17:18)
[2025-06-16] MEDS: ASCORBIC ACID 500 MG TABLET PO ×2 (08:27→17:18)
[2025-06-16] MEDS: THIAMINE HCL 100 MG TABLET PO (08:27)
[2025-06-16] MEDS: NITROFURANTOIN MONOHYD MACROCR 100 MG CAP PO ×2 (08:29→20:21)
[2025-06-16] MEDS: ACETAMINOPHEN 325 MG TABLET PO (12:19)
[2025-06-16 14:00] VITALS: BP 124/74; PULSE 104; RESP 16; O2SAT 99
--- NOTE | 2025-06-16 18:49 | P.PNIM_ITS ---
Progress Note: A&P Assessment and Plan (1) Acute UTI: Code(s): N39.0 - Urinary tract infection, site not specified Status: Acute Assessment and Plan: Started on Rocephin on 06/12/2025 Ceftriaxone transition to Augmentin on 06/16/2025 to complete 7 days. Group B Streptococcus Macrobid started on 06/15/2025 to complete 5 day course. E coli White blood cells increasing since 06/14/2025, possibly due to antibiotic under treatment, sensitivities finally back. Continue to trend WBC and check procalcitonin tomorrow. She had some bladder pain today, afebrile although. 06/16/2025: Clinical picture is not changed. Leukocytosis increased slightly. Continue antibiotics. (2) Chronic anticoagulation: Code(s): Z79.01 - longterm (current) use of anticoagulants Status: Chronic Assessment and Plan: Currently not on anticoagulation due to possible brain bleed (3) Hypertension: Qualifiers: Hypertension type: unspecified Qualified Code(s): I10 - Essential (primary) hypertension Code(s): I10 - Essential (primary) hypertension Status: Chronic Assessment and Plan: Not on medications prior to admission, currently at goal. Continue to monitor. (4) Hyperlipidemia: Qualifiers: Hyperlipidemia type: unspecified Qualified Code(s): E78.5 - Hyperlipidemia, unspecified Code(s): E78.5 - Hyperlipidemia, unspecified Status: Chronic Assessment and Plan: Continue atorvastatin 40 mg p.o. HS (5) Schizoaffective disorder: Code(s): F25.9 - Schizoaffective disorder, unspecified Status: Chronic Assessment and Plan: Continue [place] Continue Vortioxetine (6) Depression with anxiety: Code(s): F41.8 - Other specified anxiety disorders Status: Chronic Assessment and Plan: Continue BuSpar (7) Brain tumor: Code(s): D49.6 - Neoplasm of unspecified behavior of brain Status: Acute Assessment and Plan: Retrieve records from [facility] (8) Seizures: Code(s): R56.9 - Unspecified convulsions Status: Chronic Assessment and Plan: Continue home medications Keppra 750 mg p.o. b.i.d. Continue Depakote mg p.o. q.h.s. Continue Trileptal 150 mg p.o. b.i.d. (9) Pneumonia: Qualifiers: Laterality: bilateral Lung location: unspecified part of lung Pneumonia type: due to unspecified organism Qualified Code(s): J18.9 - Pneumonia, unspecified organism Code(s): J18.9 - Pneumonia, unspecified organism Status: Acute Assessment and Plan: RSV COVID flu negative MRSA negative Received ceftriaxone and azithromycin. No shortness of breath or cough. Plan History of dementia History of stroke with left-sided hemiparesis On 12/2024 she was transferred for midline shift unclear hospital course at [facility] Chronic subdural hematoma with interval placement of ADMINISTRATION MANAGER shunt Code status: DNR DVT prophylaxis SCDs due to previous history of brain bleed. Time Spent With Patient Time with patient: Greater than 35 minutes Subjective Date/time seen: 06/16/25 18:49 Interval history: A&O x3. Reports bladder spasm and increased frequency. No other complaints. Denies fever. Review of Systems Review of Systems: All systems reviewed & are unremarkable except as noted in HPI and below (Subjective) Exam Const: General: comfortable and no acute distress Other: Distracted HENMT: Mouth: Yes moist mucous membranes Eyes: Pupils: Equal, round and reactive pupils present Neck: Neck: supple Resp: Effort & Inspection: normal respiratory effort Auscultation: clear to auscultation bilaterally Cardio: Rate: regular rate Rhythm: regular rhythm GI: GI Palp: Yes Soft to palpation and No Tenderness to palpation present (GI) : Other: Bladder tender to palpation Objective Data Vital Signs Vital Signs: Vital Signs - 24 hr 06/15/25 21:00 06/15/25 22:00 06/16/25 06:00 Temperature 98.1 F 98.0 F Pulse Rate 99 110 H Respiratory Rate 20 20 Blood Pressure 98/65 L 124/68 Pulse Oximetry 95 92 94 Oxygen Delivery Room Air 06/16/25 08:00 06/16/25 08:19 06/16/25 14:00 Temperature Pulse Rate 104 H Respiratory Rate 15 16 Blood Pressure 124/74 Pulse Oximetry 99 Oxygen Delivery Room Air Intake/Output Intake/Output: Intake & Output 06/13/25 06/14/25 06/15/25 06/16/25 23:59 23:59 23:59 23:59 Intake Total 2520 1740 1260 890 Balance 2520 1740 1260 890 Meds/Results Medications: Active Medications Generic Name Dose Route Start Last Admin Trade Name Freq PRN Reason Stop Dose Admin Acetaminophen 325 mg 06/11/25 17:09 06/16/25 12:19 Acetaminophen 325 Mg Tablet PO 325 mg Q6-8H PRN Administration Pain (Scale Score 1-3) Albuterol 2 puff 06/11/25 17:09 Albuterol Sulfate (*Sp) Aerosol 1 Puff INHALATION Q4-6H PRN Shortness Of Breath Or Wheezing Amoxicillin/Clavulanate Potassium 1 tablet 06/16/25 09:00 06/16/25 08:27 Amoxicillin/Clavulanate K 875-125 Mg Tab PO 06/17/25 21:01 1 tablet Q12HR RIVAS Administration Ascorbic Acid 500 mg 06/12/25 09:00 06/16/25 17:18 Ascorbic Acid 500 Mg Tablet PO 500 mg BID RIVAS Administration Aspirin 81 mg 06/12/25 09:00 06/16/25 08:27 Aspirin 81 Mg Enteric Tablet PO 81 mg DAILY RIVAS Administration Atorvastatin Calcium 40 mg 06/11/25 21:00 06/15/25 20:23 Atorvastatin 40 Mg Tablet PO 40 mg HS RIVAS Administration Buspirone HCl 5 mg 06/11/25 18:00 06/16/25 17:18 Buspirone Hcl 5 Mg Tablet PO 5 mg BID RIVAS Administration Divalproex Sodium 500 mg 06/11/25 21:00 06/15/25 20:23 Divalproex Sodium Er 500 Mg Tab.24h PO 500 mg HS RIVAS Administration Gabapentin 100 mg 06/11/25 18:00 06/16/25 17:18 Gabapentin 100 Mg Capsule PO 100 mg TID RIVAS Administration Levetiracetam 750 mg 06/11/25 18:00 06/16/25 17:18 Levetiracetam 250 Mg Tablet PO 750 mg BID RIVAS Administration Levothyroxine Sodium 25 mcg 06/12/25 06:30 06/16/25 05:32 Levothyroxine Sodium 25 Mcg Tablet PO 25 mcg DAILY@0630 RIVAS Administration Lidocaine 1 patch 06/13/25 23:50 06/16/25 08:26 Lidocaine 5% Patch TRANSDERM 1 patch DAILY RIVAS Administration Loratadine 10 mg 06/11/25 17:09 Loratadine 10 Mg Tablet PO DAILY PRN Allergic Symptoms Melatonin 3 mg 06/11/25 17:09 06/14/25 20:30 Melatonin 3 Mg Tablet PO 3 mg HS PRN Administration Sleep Nitrofurantoin Macrocrystals 100 mg 06/15/25 12:35 06/16/25 08:29 Nitrofurantoin Monohyd Macrocr 100 Mg Cap PO 06/19/25 21:01 100 mg Q12HR RIVAS Administration Oxcarbazepine 150 mg 06/11/25 18:00 06/16/25 17:18 Oxcarbazepine 150 Mg Tablet PO 150 mg BID RIVAS Administration Oxycodone HCl 5 mg 06/11/25 18:00 06/16/25 17:18 Oxycodone Hcl (*Crx) 5 Mg Tab Ir PO 5 mg BID RIVAS Administration Polyethylene Glycol 17 gm 06/11/25 17:09 Polyethylene Glycol 3350 17 Gm Powd.Pack PO DAILY PRN Constipation Senna 8.6 mg 06/11/25 18:00 06/16/25 17:18 Sennosides 8.6 Mg Tablet PO 8.6 mg BID RIVAS Administration Thiamine HCl 100 mg 06/12/25 09:00 06/16/25 08:27 Thiamine Hcl 100 Mg Tablet PO 100 mg DAILY RIVAS Administration Trazodone HCl 25 mg 06/11/25 21:00 06/15/25 20:23 Trazodone Hcl 25 Mg Tablet PO 25 mg HS RIVAS Administration Umeclidinium [place] 1 puff 06/12/25 08:00 06/16/25 08:19 Umeclidinium [place] 62.5 Mcg Ellipta INHALATION 1 puff DAILYRT RIVAS Administration Radiology Results: ITS Impressions Head CT 06/11/25 07:52 IMPRESSION: 1. Large region of encephalomalacia involving the right middle cerebral artery vascular distribution. No acute intracranial process. 2. Interval placement of a right parietal ventricular drainage catheter with distal tip at the anterior body of the right lateral ventricle with unchanged mild expected dilation of the right lateral ventricle related to the chronic infarct. 3. Unchanged large chronic CSF attenuation fluid collection overlying the right cerebral hemisphere consistent with chronic subdural hematoma. Chest X-Ray 06/11/25 09:00 IMPRESSION: 1. Bibasilar predominant interstitial pulmonary edema and/or pneumonitis. Labs Labs: Laboratory Results - last 24 hr 06/16/25 06/16/25 05:38 05:39 WBC 12.8 H RBC 4.48 Hgb 13.6 Hct 43.1 MCV 96.2 MCH 30.4 MCHC 31.6 L RDW 13.7 Plt Count 287 MPV 9.5 Immature Gran % (Auto) 0.5 Neut % (Auto) 67.6 Lymph % (Auto) 24.7 [place] % (Auto) 6.5 Eos % (Auto) 0.5 Baso % (Auto) 0.2 Lymph # (Auto) 3.15 [place] # (Auto) 0.8 H Eos # (Auto) 0.1 Baso # (Auto) 0.0 Abs Immat Gran (auto) 0.07 H Absolute Neuts (auto) 8.6 H Absolute Nucleated RBC 0.000 Nucleated RBC % 0.0 Sodium 129 L Potassium 3.7 Chloride 100 Carbon Dioxide 19 L Anion Gap 10 BUN 5 L Creatinine 0.69 L Estim Creat Clear Calc 65 Estimated GFR > 60 Glucose 121 H Calcium 8.7 Magnesium 2.2 Total Bilirubin 0.5 AST 33 ALT 20 Alkaline Phosphatase 144 H Total Protein 7.7 Albumin 3.8 Procalcitonin 0.1
[2025-06-16] MEDS: DIVALPROEX SODIUM ER 500 MG TAB.24H PO (20:21)
[2025-06-16] MEDS: ATORVASTATIN 40 MG TABLET PO (20:21)
[2025-06-16 20:30] VITALS: BP 100/65; PULSE 99; RESP 18; TEMP 36.5; O2SAT 97
[2025-06-17 05:14] VITALS: BP 100/80; PULSE 98; RESP 16; TEMP 36.6; O2SAT 93
[2025-06-17] MEDS: ACETAMINOPHEN 325 MG TABLET PO ×2 (05:31→20:49)
[2025-06-17] MEDS: LEVOTHYROXINE SODIUM 25 MCG TABLET PO (05:31)
[2025-06-17 06:55] LABS: Hematocrit 43.6 % (37.0-47.0); Hemoglobin 13.8 g/dL (12.0-15.0); Immature Granulocyte Percent A 0.6 % (0-0.5); Lymphocytes Absolute Auto 2.68 K/mm3 (0.9-3.2); Mean Corpuscular HGB Conc 31.7 g/dl (32-36); Mean Corpuscular Hemoglobin 29.7 pg (26-34); Mean Corpuscular Volume 94.0 fl (80-100); Nucleated Red Blood Cells Absolute Auto 0.000 K/mm3 (0.0-0.012); Nucleated Red Blood Cells Perc 0.0 % (0.0-0.2); Platelet Count Result 344 k/mm3 (150-375); Red Blood Count 4.64 M/mm3 (4.2-5.4); White Blood Count 14.3 K/mm3 (4.5-10.0)
[2025-06-17 07:20] LABS: Anion Gap 10 mmol/L (4-12); Blood Urea Nitrogen 9 mg/dL (7-17); Calcium 9.0 mg/dL (8.4-10.2); Carbon Dioxide 23 mmol/L (22-30); Chloride 98 mmol/L (98-107); Estimated CRCL calculation 59 ml/min; Estimated Glomerular Filt Rate > 60; Glucose 115 mg/dL (65-110); Magnesium 2.1 mg/dL (1.6-2.3); Potassium 3.5 mmol/L (3.4-5.0); Sodium 131 mmol/L (137-145)
[2025-06-17] MEDS: UMECLIDINIUM BROMIDE 62.5 MCG ELLIPTA 1 PUFF INHALATION (07:31)
[2025-06-17 07:34] VITALS: O2SAT 96
[2025-06-17 07:54] LABS: Procalcitonin 0.1 ng/mL
[2025-06-17] MEDS: NITROFURANTOIN MONOHYD MACROCR 100 MG CAP PO ×2 (09:45→20:49)
[2025-06-17] MEDS: SENNOSIDES 8.6 MG TABLET PO ×2 (09:45→16:13)
[2025-06-17] MEDS: oxyCODONE HCL (*CRX) 5 MG TAB IR PO ×2 (09:45→16:12)
[2025-06-17] MEDS: GABAPENTIN 100 MG CAPSULE PO ×3 (09:45→16:12)
[2025-06-17] MEDS: ASPIRIN 81 MG ENTERIC TABLET PO (09:46)
[2025-06-17] MEDS: THIAMINE HCL 100 MG TABLET PO (09:46)
[2025-06-17] MEDS: ASCORBIC ACID 500 MG TABLET PO ×2 (09:46→16:13)
[2025-06-17] MEDS: LIDOCAINE 5% PATCH 1 PATCH TRANSDERM (09:48)
[2025-06-17 14:00] VITALS: BP 128/74; PULSE 96; RESP 14; TEMP 36.5; O2SAT 94
--- NOTE | 2025-06-17 15:39 | PCNWS ---
Weekly nutritional screen. Patient is tolerating current Heart healthy diet with adequate intake, 75-100% last 72 hours. No weight loss reported. No nutritional needs at this time.
--- NOTE | 2025-06-17 17:32 | PM.IMPN ---
Progress Note: A&P Assessment and Plan (1) Acute UTI: Code(s): N39.0 - Urinary tract infection, site not specified Status: Acute (2) Cellulitis: Code(s): L03.90 - Cellulitis, unspecified Status: Acute Plan Leukocytosis increasing, initially antibiotics were tailored appropriately for group B strep and E coli in the urine. However leukocytosis continues to increase. Right hand appears cellulitic. Continue Macrobid, discontinue Augmentin for vancomycin. Pharmacy to dose. Trend leukocytosis and procalcitonin level. Patient wishes to be DNR. Saline lock IV. History of CVA, left-sided paresis Time Spent With Patient Time with patient: Greater than 35 minutes Subjective Date/time seen: 06/17/25 17:32 Interval history: No major acute overnight events. Patient's history is not entirely reliable. She does not complain of pain at the right hand, she thinks her bladder is still having spasms. Denies shortness of breath, cough, chest pain, abdominal pain otherwise. Review of Systems Review of Systems: All systems reviewed & are unremarkable except as noted in HPI and below (Subjective) Exam Const: General: comfortable and no acute distress Other: Easily distracted HENMT: Mouth: Yes moist mucous membranes Eyes: Pupils: Equal, round and reactive pupils present Neck: Neck: supple Resp: Effort & Inspection: normal respiratory effort Auscultation: clear to auscultation bilaterally Cardio: Rate: regular rate Rhythm: regular rhythm GI: GI Palp: Yes Soft to palpation and No Tenderness to palpation present (GI) : Other: Bladder tender to palpation Extrem: Other: Right hand dorsal surface hot to touch, erythematous. Objective Data Vital Signs Vital Signs: Vital Signs - 24 hr 06/16/25 20:00 06/16/25 20:30 06/17/25 05:14 Temperature 97.7 F 97.9 F Pulse Rate 99 98 Respiratory Rate 18 16 Blood Pressure 100/65 100/80 Pulse Oximetry 97 93 Oxygen Delivery Room Air 06/17/25 07:34 06/17/25 08:00 06/17/25 14:00 Temperature 97.7 F Pulse Rate 96 Respiratory Rate 14 Blood Pressure 128/74 Pulse Oximetry 96 94 Oxygen Delivery Room Air Room Air Intake/Output Intake/Output: Intake & Output 06/14/25 06/15/25 06/16/25 06/17/25 23:59 23:59 23:59 23:59 Intake Total 1740 1260 890 480 Balance 1740 1260 890 480 Meds/Results Medications: Active Medications Generic Name Dose Route Start Last Admin Trade Name Freq PRN Reason Stop Dose Admin Acetaminophen 325 mg 06/11/25 17:09 06/17/25 05:31 Acetaminophen 325 Mg Tablet PO 325 mg Q6-8H PRN Administration Pain (Scale Score 1-3) Albuterol 2 puff 06/11/25 17:09 Albuterol Sulfate (*Sp) Aerosol 1 Puff INHALATION Q4-6H PRN Shortness Of Breath Or Wheezing Ascorbic Acid 500 mg 06/12/25 09:00 06/17/25 16:13 Ascorbic Acid 500 Mg Tablet PO 500 mg BID RIVAS Administration Aspirin 81 mg 06/12/25 09:00 06/17/25 09:46 Aspirin 81 Mg Enteric Tablet PO 81 mg DAILY RIVAS Administration Atorvastatin Calcium 40 mg 06/11/25 21:00 06/16/25 20:21 Atorvastatin 40 Mg Tablet PO 40 mg HS RIVAS Administration Buspirone HCl 5 mg 06/11/25 18:00 06/17/25 16:12 Buspirone Hcl 5 Mg Tablet PO 5 mg BID RIVAS Administration Divalproex Sodium 500 mg 06/11/25 21:00 06/16/25 20:21 Divalproex Sodium Er 500 Mg Tab.24h PO 500 mg HS RIVAS Administration Gabapentin 100 mg 06/11/25 18:00 06/17/25 16:12 Gabapentin 100 Mg Capsule PO 100 mg TID RIVAS Administration Vancomycin HCl 1,500 mg in 500 mls @ 250 mls/hr 06/17/25 18:00 Vancomycin 1,500 Mg/Ns 500 Ml IVPB Q24H RIVAS Levetiracetam 750 mg 06/11/25 18:00 06/17/25 16:12 Levetiracetam 250 Mg Tablet PO 750 mg BID RIVAS Administration Levothyroxine Sodium 25 mcg 06/12/25 06:30 06/17/25 05:31 Levothyroxine Sodium 25 Mcg Tablet PO 25 mcg DAILY@0630 RIVAS Administration Lidocaine 1 patch 06/13/25 23:50 06/17/25 09:48 Lidocaine 5% Patch TRANSDERM 1 patch DAILY RIVAS Administration Loratadine 10 mg 06/11/25 17:09 Loratadine 10 Mg Tablet PO DAILY PRN Allergic Symptoms Melatonin 3 mg 06/11/25 17:09 06/14/25 20:30 Melatonin 3 Mg Tablet PO 3 mg HS PRN Administration Sleep Nitrofurantoin Macrocrystals 100 mg 06/15/25 12:35 06/17/25 09:45 Nitrofurantoin Monohyd Macrocr 100 Mg Cap PO 06/19/25 21:01 100 mg Q12HR RIVAS Administration Oxcarbazepine 150 mg 06/11/25 18:00 06/17/25 16:13 Oxcarbazepine 150 Mg Tablet PO 150 mg BID RIVAS Administration Oxycodone HCl 5 mg 06/11/25 18:00 06/17/25 16:12 Oxycodone Hcl (*Crx) 5 Mg Tab Ir PO 5 mg BID RIVAS Administration Polyethylene Glycol 17 gm 06/11/25 17:09 Polyethylene Glycol 3350 17 Gm Powd.Pack PO DAILY PRN Constipation Senna 8.6 mg 06/11/25 18:00 06/17/25 16:13 Sennosides 8.6 Mg Tablet PO 8.6 mg BID RIVAS Administration Thiamine HCl 100 mg 06/12/25 09:00 06/17/25 09:46 Thiamine Hcl 100 Mg Tablet PO 100 mg DAILY RIVAS Administration Trazodone HCl 25 mg 06/11/25 21:00 06/16/25 20:21 Trazodone Hcl 25 Mg Tablet PO 25 mg HS RIVAS Administration Umeclidinium [place] 1 puff 06/12/25 08:00 06/17/25 07:31 Umeclidinium [place] 62.5 Mcg Ellipta INHALATION 1 puff DAILYRT RIVAS Administration Radiology Results: ITS Impressions Head CT 06/11/25 07:52 IMPRESSION: 1. Large region of encephalomalacia involving the right middle cerebral artery vascular distribution. No acute intracranial process. 2. Interval placement of a right parietal ventricular drainage catheter with distal tip at the anterior body of the right lateral ventricle with unchanged mild expected dilation of the right lateral ventricle related to the chronic infarct. 3. Unchanged large chronic CSF attenuation fluid collection overlying the right cerebral hemisphere consistent with chronic subdural hematoma. Chest X-Ray 06/11/25 09:00 IMPRESSION: 1. Bibasilar predominant interstitial pulmonary edema and/or pneumonitis. Labs Labs: Laboratory Results - last 24 hr 06/17/25 05:58 WBC 14.3 H RBC 4.64 Hgb 13.8 Hct 43.6 MCV 94.0 MCH 29.7 MCHC 31.7 L RDW 13.7 Plt Count 344 MPV 9.4 Immature Gran % (Auto) 0.6 H Neut % (Auto) 73.8 H Lymph % (Auto) 18.7 [place] % (Auto) 6.0 Eos % (Auto) 0.6 Baso % (Auto) 0.3 Lymph # (Auto) 2.68 [place] # (Auto) 0.9 H Eos # (Auto) 0.1 Baso # (Auto) 0.0 Abs Immat Gran (auto) 0.08 H Absolute Neuts (auto) 10.6 H Absolute Nucleated RBC 0.000 Nucleated RBC % 0.0 Sodium 131 L Potassium 3.5 Chloride 98 Carbon Dioxide 23 Anion Gap 10 BUN 9 Creatinine 0.77 Estim Creat Clear Calc 59 Estimated GFR > 60 Glucose 115 H Calcium 9.0 Magnesium 2.1 Procalcitonin 0.1
[2025-06-17] MEDS: VANCOMYCIN 1,500 MG/NS 500 ML 1,500 MG/500 ML BAG 250 MG IVPB (18:07)
[2025-06-17] MEDS: ATORVASTATIN 40 MG TABLET PO (20:49)
[2025-06-17] MEDS: DIVALPROEX SODIUM ER 500 MG TAB.24H PO (20:49)
[2025-06-17 21:59] VITALS: BP 113/66; PULSE 100; RESP 18; TEMP 36.1; O2SAT 96
[2025-06-18] MEDS: ACETAMINOPHEN 325 MG TABLET PO (05:29)
[2025-06-18] MEDS: LEVOTHYROXINE SODIUM 25 MCG TABLET PO (05:30)
[2025-06-18 06:00] VITALS: BP 111/65; PULSE 106; RESP 17; TEMP 36.2; O2SAT 95
[2025-06-18 06:10] LABS: Hematocrit 41.1 % (37.0-47.0); Hemoglobin 13.2 g/dL (12.0-15.0); Immature Granulocyte Percent A 0.5 % (0-0.5); Lymphocytes Absolute Auto 2.60 K/mm3 (0.9-3.2); Mean Corpuscular HGB Conc 32.1 g/dl (32-36); Mean Corpuscular Hemoglobin 30.1 pg (26-34); Mean Corpuscular Volume 93.6 fl (80-100); Nucleated Red Blood Cells Absolute Auto 0.000 K/mm3 (0.0-0.012); Nucleated Red Blood Cells Perc 0.0 % (0.0-0.2); Platelet Count Result 320 k/mm3 (150-375); Red Blood Count 4.39 M/mm3 (4.2-5.4); White Blood Count 10.6 K/mm3 (4.5-10.0)
[2025-06-18 06:40] LABS: Anion Gap 9 mmol/L (4-12); Blood Urea Nitrogen 12 mg/dL (7-17); Calcium 8.8 mg/dL (8.4-10.2); Carbon Dioxide 24 mmol/L (22-30); Chloride 102 mmol/L (98-107); Estimated CRCL calculation 64 ml/min; Estimated Glomerular Filt Rate > 60; Glucose 121 mg/dL (65-110); Magnesium 2.0 mg/dL (1.6-2.3); Potassium 3.7 mmol/L (3.4-5.0); Sodium 135 mmol/L (137-145)
[2025-06-18 06:55] LABS: Procalcitonin 0.1 ng/mL
[2025-06-18] MEDS: LIDOCAINE 5% PATCH 1 PATCH TRANSDERM (09:03)
[2025-06-18] MEDS: NITROFURANTOIN MONOHYD MACROCR 100 MG CAP PO ×2 (09:04→20:33)
[2025-06-18] MEDS: SENNOSIDES 8.6 MG TABLET PO ×2 (09:04→16:46)
[2025-06-18] MEDS: THIAMINE HCL 100 MG TABLET PO (09:04)
[2025-06-18] MEDS: ASPIRIN 81 MG ENTERIC TABLET PO (09:04)
[2025-06-18] MEDS: GABAPENTIN 100 MG CAPSULE PO ×3 (09:04→16:45)
[2025-06-18] MEDS: ASCORBIC ACID 500 MG TABLET PO ×2 (09:04→16:46)
[2025-06-18] MEDS: oxyCODONE HCL (*CRX) 5 MG TAB IR PO ×2 (09:04→16:45)
[2025-06-18] MEDS: VANCOMYCIN 1,500 MG/NS 500 ML 1,500 MG/500 ML BAG 250 MG IVPB (11:39)
[2025-06-18 14:00] VITALS: BP 119/81; PULSE 98; RESP 18; TEMP 36.1; O2SAT 95
--- NOTE | 2025-06-18 16:17 | P.PNIM_ITS ---
Progress Note: A&P Assessment and Plan (1) Acute UTI: Code(s): N39.0 - Urinary tract infection, site not specified Status: Acute (2) Cellulitis: Code(s): L03.90 - Cellulitis, unspecified Status: Acute Plan Leukocytosis is markedly improved after starting vancomycin for right hand cellulitis. Continue vancomycin and Macrobid. Trend leukocytosis. Patient wishes to be DNR. Saline lock IV. No anticoagulation due to brain bleed. Continue SCDs. History of CVA, left-sided paresis Time Spent With Patient Time with patient: Greater than 35 minutes Subjective Date/time seen: 06/18/25 16:17 Interval history: No major acute overnight events. Patient has no complaints today. Review of Systems Review of Systems: All systems reviewed & are unremarkable except as noted in HPI and below (Subjective) Exam Const: General: comfortable and no acute distress Other: Easily distracted HENMT: Mouth: Yes moist mucous membranes Eyes: Pupils: Equal, round and reactive pupils present Neck: Neck: supple Resp: Effort & Inspection: normal respiratory effort Auscultation: clear to auscultation bilaterally Cardio: Rate: regular rate Rhythm: regular rhythm GI: GI Palp: Yes Soft to palpation and No Tenderness to palpation present (GI) : Other: Bladder tender to palpation Extrem: Other: Right hand dorsal surface soft tissue erythema is improving. Objective Data Vital Signs Vital Signs: Vital Signs - 24 hr 06/17/25 20:00 06/17/25 21:59 06/18/25 06:00 Temperature 97.0 F L 97.1 F L Pulse Rate 100 106 H Respiratory Rate 18 17 Blood Pressure 113/66 111/65 Pulse Oximetry 96 95 Oxygen Delivery Room Air 06/18/25 08:00 Temperature Pulse Rate Respiratory Rate Blood Pressure Pulse Oximetry Oxygen Delivery Room Air Intake/Output Intake/Output: Intake & Output 06/15/25 06/16/25 06/17/25 06/18/25 23:59 23:59 23:59 23:59 Intake Total 1260 890 600 100 Output Total 700 Balance 1260 890 600 -600 Meds/Results Medications: Active Medications Generic Name Dose Route Start Last Admin Trade Name Freq PRN Reason Stop Dose Admin Acetaminophen 325 mg 06/11/25 17:09 06/18/25 05:29 Acetaminophen 325 Mg Tablet PO 325 mg Q6-8H PRN Administration Pain (Scale Score 1-3) Albuterol 2 puff 06/11/25 17:09 Albuterol Sulfate (*Sp) Aerosol 1 Puff INHALATION Q4-6H PRN Shortness Of Breath Or Wheezing Ascorbic Acid 500 mg 06/12/25 09:00 06/18/25 09:04 Ascorbic Acid 500 Mg Tablet PO 500 mg BID RIVAS Administration Aspirin 81 mg 06/12/25 09:00 06/18/25 09:04 Aspirin 81 Mg Enteric Tablet PO 81 mg DAILY RIVAS Administration Atorvastatin Calcium 40 mg 06/11/25 21:00 06/17/25 20:49 Atorvastatin 40 Mg Tablet PO 40 mg HS RIVAS Administration Buspirone HCl 5 mg 06/11/25 18:00 06/18/25 09:04 Buspirone Hcl 5 Mg Tablet PO 5 mg BID RIVAS Administration Divalproex Sodium 500 mg 06/11/25 21:00 06/17/25 20:49 Divalproex Sodium Er 500 Mg Tab.24h PO 500 mg HS RIVAS Administration Gabapentin 100 mg 06/11/25 18:00 06/18/25 12:41 Gabapentin 100 Mg Capsule PO 100 mg TID RIVAS Administration Vancomycin HCl 1,500 mg in 500 mls @ 250 mls/hr 06/18/25 12:00 06/18/25 11:39 Vancomycin 1,500 Mg/Ns 500 Ml IVPB 250 mls/hr Q18H RIVAS Administration Levetiracetam 750 mg 06/11/25 18:00 06/18/25 09:04 Levetiracetam 250 Mg Tablet PO 750 mg BID RIVAS Administration Levothyroxine Sodium 25 mcg 06/12/25 06:30 06/18/25 05:30 Levothyroxine Sodium 25 Mcg Tablet PO 25 mcg DAILY@0630 RIVAS Administration Lidocaine 1 patch 06/13/25 23:50 06/18/25 09:03 Lidocaine 5% Patch TRANSDERM 1 patch DAILY RIVAS Administration Loratadine 10 mg 06/11/25 17:09 Loratadine 10 Mg Tablet PO DAILY PRN Allergic Symptoms Melatonin 3 mg 06/11/25 17:09 06/14/25 20:30 Melatonin 3 Mg Tablet PO 3 mg HS PRN Administration Sleep Nitrofurantoin Macrocrystals 100 mg 06/15/25 12:35 06/18/25 09:04 Nitrofurantoin Monohyd Macrocr 100 Mg Cap PO 10/03/25 21:01 100 mg Q12HR RIVAS Administration Oxcarbazepine 150 mg 06/11/25 18:00 06/18/25 09:04 Oxcarbazepine 150 Mg Tablet PO 150 mg BID RIVAS Administration Oxycodone HCl 5 mg 06/11/25 18:00 06/18/25 09:04 Oxycodone Hcl (*Crx) 5 Mg Tab Ir PO 5 mg BID RIVAS Administration Polyethylene Glycol 17 gm 06/11/25 17:09 Polyethylene Glycol 3350 17 Gm Powd.Pack PO DAILY PRN Constipation Senna 8.6 mg 06/11/25 18:00 06/18/25 09:04 Sennosides 8.6 Mg Tablet PO 8.6 mg BID RIVAS Administration Thiamine HCl 100 mg 06/12/25 09:00 06/18/25 09:04 Thiamine Hcl 100 Mg Tablet PO 100 mg DAILY RIVAS Administration Trazodone HCl 25 mg 06/11/25 21:00 06/17/25 20:49 Trazodone Hcl 25 Mg Tablet PO 25 mg HS RIVAS Administration Umeclidinium [place] 1 puff 06/12/25 08:00 06/17/25 07:31 Umeclidinium [place] 62.5 Mcg Ellipta INHALATION 1 puff DAILYRT RIVAS Administration Radiology Results: ITS Impressions Head CT 06/11/25 07:52 IMPRESSION: 1. Large region of encephalomalacia involving the right middle cerebral artery vascular distribution. No acute intracranial process. 2. Interval placement of a right parietal ventricular drainage catheter with distal tip at the anterior body of the right lateral ventricle with unchanged mild expected dilation of the right lateral ventricle related to the chronic infarct. 3. Unchanged large chronic CSF attenuation fluid collection overlying the right cerebral hemisphere consistent with chronic subdural hematoma. Chest X-Ray 06/11/25 09:00 IMPRESSION: 1. Bibasilar predominant interstitial pulmonary edema and/or pneumonitis. Labs Labs: Laboratory Results - last 24 hr 06/18/25 06/18/25 05:41 05:42 WBC 10.6 H RBC 4.39 Hgb 13.2 Hct 41.1 MCV 93.6 MCH 30.1 MCHC 32.1 RDW 13.7 Plt Count 320 MPV 9.2 Immature Gran % (Auto) 0.5 Neut % (Auto) 67.6 Lymph % (Auto) 24.6 [place] % (Auto) 6.0 Eos % (Auto) 1.0 Baso % (Auto) 0.3 Lymph # (Auto) 2.60 [place] # (Auto) 0.6 Eos # (Auto) 0.1 Baso # (Auto) 0.0 Abs Immat Gran (auto) 0.05 H Absolute Neuts (auto) 7.1 H Absolute Nucleated RBC 0.000 Nucleated RBC % 0.0 Sodium 135 L Potassium 3.7 Chloride 102 Carbon Dioxide 24 Anion Gap 9 BUN 12 Creatinine 0.71 Estim Creat Clear Calc 64 Estimated GFR > 60 Glucose 121 H Calcium 8.8 Magnesium 2.0 Procalcitonin 0.1
[2025-06-18] MEDS: DIVALPROEX SODIUM ER 500 MG TAB.24H PO (20:33)
[2025-06-18] MEDS: ATORVASTATIN 40 MG TABLET PO (20:33)
[2025-06-18 22:00] VITALS: BP 111/66; PULSE 95; RESP 20; TEMP 36.9; O2SAT 93
[2025-06-19 05:46] LABS: Hematocrit 39.0 % (37.0-47.0); Hemoglobin 12.6 g/dL (12.0-15.0); Immature Granulocyte Percent A 0.5 % (0-0.5); Lymphocytes Absolute Auto 2.75 K/mm3 (0.9-3.2); Mean Corpuscular HGB Conc 32.3 g/dl (32-36); Mean Corpuscular Hemoglobin 30.4 pg (26-34); Mean Corpuscular Volume 94.2 fl (80-100); Nucleated Red Blood Cells Absolute Auto 0.000 K/mm3 (0.0-0.012); Nucleated Red Blood Cells Perc 0.0 % (0.0-0.2); Platelet Count Result 329 k/mm3 (150-375); Red Blood Count 4.14 M/mm3 (4.2-5.4); White Blood Count 9.9 K/mm3 (4.5-10.0)
[2025-06-19 05:59] LABS: Anion Gap 7 mmol/L (4-12); Blood Urea Nitrogen 13 mg/dL (7-17); Calcium 8.7 mg/dL (8.4-10.2); Carbon Dioxide 25 mmol/L (22-30); Chloride 102 mmol/L (98-107); Estimated CRCL calculation 71 ml/min; Estimated Glomerular Filt Rate > 60; Glucose 120 mg/dL (65-110); Magnesium 2.0 mg/dL (1.6-2.3); Potassium 3.9 mmol/L (3.4-5.0); Sodium 134 mmol/L (137-145)
[2025-06-19 06:00] VITALS: BP 145/74; PULSE 99; RESP 20; TEMP 36.3; O2SAT 96
[2025-06-19] MEDS: LEVOTHYROXINE SODIUM 25 MCG TABLET PO (06:33)
[2025-06-19] MEDS: VANCOMYCIN 1,500 MG/NS 500 ML 1,500 MG/500 ML BAG 250 MG IVPB (06:38)
[2025-06-19] MEDS: ACETAMINOPHEN 325 MG TABLET PO (06:39)
[2025-06-19] MEDS: UMECLIDINIUM BROMIDE 62.5 MCG ELLIPTA 1 PUFF INHALATION (07:42)
[2025-06-19 07:43] VITALS: PULSE 80; RESP 16
[2025-06-19] MEDS: ASPIRIN 81 MG ENTERIC TABLET PO (09:09)
[2025-06-19] MEDS: ASCORBIC ACID 500 MG TABLET PO (09:10)
[2025-06-19] MEDS: GABAPENTIN 100 MG CAPSULE PO (09:10)
[2025-06-19] MEDS: SENNOSIDES 8.6 MG TABLET PO (09:10)
[2025-06-19] MEDS: NITROFURANTOIN MONOHYD MACROCR 100 MG CAP PO (09:10)
[2025-06-19] MEDS: oxyCODONE HCL (*CRX) 5 MG TAB IR PO (09:10)
[2025-06-19] MEDS: LIDOCAINE 5% PATCH 1 PATCH TRANSDERM (09:11)
[2025-06-19] MEDS: THIAMINE HCL 100 MG TABLET PO (09:11)
--- NOTE | 2025-06-19 09:37 | PM.DS ---
DS: Admitting Diagnosis Discharge Date 06/19/2025 Admitting Diagnosis Altered mental status DS: Discharge Diagnosis Discharge Diagnosis (1) Schizoaffective disorder: Code(s): F25.9 - Schizoaffective disorder, unspecified Status: Chronic (2) Acute UTI: Code(s): N39.0 - Urinary tract infection, site not specified Status: Acute (3) Pneumonia: Code(s): J18.9 - Pneumonia, unspecified organism Status: Acute (4) Cellulitis: Code(s): L03.90 - Cellulitis, unspecified Status: Acute DS: Summary Hospital Course Hospital Course: 65-year-old female with history of dementia, CVA with left-sided hemiparesis, schizoaffective disorder, COPD, UTI, depression, hypothyroidism, seizures, hypertension, hyperlipidemia presents to [facility] ER 06/11/2025 with altered mental status. Altered mental status improved after treatment for infection completed. Urine culture growing E coli and ER, group B Streptococcus. She was treated with nitrofurantoin and Augmentin. Subsequently developed a right hand soft tissue cellulitis of the dorsal surface. Her Augmentin was discontinued, vancomycin started. After 3 days her leukocytosis resolved in her cellulitis has 90% improved. She is discharged to complete nitrofurantoin, discharged with clindamycin and placed vancomycin. Risks versus benefits of medication discussed. Suspected pneumonia as well, treated with the aforementioned antibiotics. Quad viral screen negative. Blood culture on 06/11/2025 no growth, final. She is stable for discharge back to [facility] on 06/19/2025 as a longterm resident. Time Spent with Patient Time attestation: Total time spent providing and/or coordinating discharge services: Time spent: Greater than 30 minutes Exam Const: General: comfortable and no acute distress Other: Easily distracted HENMT: Mouth: Yes moist mucous membranes Eyes: Pupils: Equal, round and reactive pupils present Neck: Neck: supple Resp: Effort & Inspection: normal respiratory effort Auscultation: clear to auscultation bilaterally Cardio: Rate: regular rate Rhythm: regular rhythm GI: GI Palp: Yes Soft to palpation and No Tenderness to palpation present (GI) : Other: Bladder tender to palpation DS: Data Data Completed and Pending Labs on day of discharge: Labs from last 24 hours 06/19/25 05:15 WBC 9.9 RBC 4.14 L Hgb 12.6 Hct 39.0 MCV 94.2 MCH 30.4 MCHC 32.3 RDW 13.8 Plt Count 329 MPV 9.2 Immature Gran % (Auto) 0.5 Neut % (Auto) 62.9 Lymph % (Auto) 27.9 [place] % (Auto) 6.8 Eos % (Auto) 1.4 Baso % (Auto) 0.5 Lymph # (Auto) 2.75 [place] # (Auto) 0.7 H Eos # (Auto) 0.1 Baso # (Auto) 0.1 Abs Immat Gran (auto) 0.05 H Absolute Neuts (auto) 6.2 Absolute Nucleated RBC 0.000 Nucleated RBC % 0.0 Sodium 134 L Potassium 3.9 Chloride 102 Carbon Dioxide 25 Anion Gap 7 BUN 13 Creatinine 0.63 L Estim Creat Clear Calc 71 Estimated GFR > 60 Glucose 120 H Calcium 8.7 Magnesium 2.0 Discharge Plan Discharge Attending physician on discharge: Nadia Cote Discharging Clinician: Nadia Cote Patient Disposition: NH Detention/Asst Living Activity: january shower Diet: as tolerated Patient Instructions: Antibiotic Form Patient Language: Luxembourgish Stand Alone Forms: General Discharge Information Discharge Medications: New nitrofurantoin monohyd/m-cryst [Macrobid] 100 mg Capsule 100 mg PO Q12HR Qty: 1 0RF clindamycin HCl [Cleocin HCl] 300 mg capsule 300 mg PO Q6H 4 Days Qty: 16 0RF Continued atorvastatin [Lipitor] 40 mg Tablet 40 mg PO HS oxcarbazepine [Trileptal] 150 mg Tablet 150 mg PO BID sennosides [senna] 8.6 mg Tablet 8.6 mg PO BID acetaminophen [Tylenol] 325 mg Tablet 325 mg PO Q6-8H PRN (Reason: Pain (Scale Score 1-3)) levothyroxine 25 mcg Tablet 25 mcg PO DAILY calcium carbonate [Tums] 200 mg calcium (500 mg) Tablet,Chewable 200 mg PO TID PRN (Reason: dyspepsia) bisacodyl 5 mg Tablet,Delayed Release (Dr/Ec) 5 mg PO DAILY PRN (Reason: Constipation) levetiracetam [Keppra] 750 mg Tablet 750 mg PO BID multivitamin with minerals Tablet 1 tablet PO DAILY fluticasone propionate 50 mcg/actuation [place],Suspension 2 spray INTRANASAL DAILY baclofen 20 mg Tablet 20 mg PO TID gabapentin 100 mg Capsule 100 mg PO TID albuterol sulfate 90 mcg/actuation HFA aerosol inhaler 2 puff INHALATION Q4-6H PRN (Reason: shortness of breath or wheezing) aspirin [Adult Low Dose Aspirin] 81 mg tablet,delayed release (DR/EC) 81 mg PO DAILY buspirone 5 mg tablet 5 mg PO BID celecoxib 200 mg capsule 200 mg PO HS Caplyta 42 mg capsule 42 mg PO DAILY cranberry 500 mg capsule 500 mg PO DAILY Rx Instructions: administer with a meal divalproex 500 mg tablet extended release 24 hr 500 mg PO HS estradiol 0.01 % (0.1 mg/gram) cream 1 g VAGINAL .COMPLEX Rx Instructions: insert 1 g into vagina at bedtime only on Mondays and Incruse Ellipta 62.5 mcg/actuation blister with device 1 inh inhalation DAILY loratadine [Allergy Relief (loratadine)] 10 mg tablet 10 mg PO DAILY PRN (Reason: allergic symptoms) melatonin 3 mg tablet 3 mg PO HS PRN (Reason: sleep) naloxone [Narcan] 4 mg/actuation spray,non-aerosol 4 mg intranasal Q2-3M PRN (Reason: opioid overdose) Rx Instructions: spray 1 dose into ONE nostril; alternate nostrils w each dose until help arrives omeprazole 20 mg capsule,delayed release(DR/EC) 20 mg PO DAILY PRN (Reason: heart burn) oxycodone 5 mg tablet 5 mg PO BID polyethylene glycol 3350 [Miralax] 17 gram powder in packet 17 g PO DAILY PRN (Reason: constipation) thiamine HCl (vitamin B1) 100 mg tablet 100 mg PO DAILY trazodone 50 mg tablet 25 mg PO HS Trintellix 20 mg tablet 20 mg PO DAILY ascorbic acid (vitamin C) 500 mg tablet 500 mg PO BID cholecalciferol (vitamin D3) [Vitamin D3] 125 mcg (5,000 unit) tablet 125 mcg PO DAILY No Action nitrofurantoin monohyd/m-cryst [Macrobid] 100 mg capsule 100 mg PO .COMPLEX Rx Instructions: 100 mg orally BID ends on 06/15/2025; Date of admission: 06/11/25 10:37 Primary Care Provider: Justin,Radha Admitting Provider: Zia Fraire Attending physician on admission: Zia Fraire Condition: Improved Hospitalist MIPS Heart Failure (Exclusion) Patient has history of Heart Transplant or Left Ventricular Assistive Device?: No IF YES, STOP HERE Heart Failure (Qualifier) Patient has current or prior documentation of LVEF less than or equal to 40%, or mod/servere depressed LVSF?: No IF NO, STOP HERE
--- NOTE | 2025-06-19 11:13 | PC.NURSE ---
This patient, Margo Myrick, to be transferred to [facility]. PIV removed. Report given to [place] at [facility] via [phone] and faxed to [phone].
== END 2025-06-19 12:10 | DRG 689 ==
LOC: ANHED 07:10 → ANH3MEDSUR 08:57
PROVIDERS: Internal Medicine; Student in an Organized Health Care Education/Training Program; Admitting Provider General Practice; Emergency Provider Emergency Medicine; PCP Internal Medicine; Visit Provider General Practice
DX: N39.0 Urinary tract infection, site not specified (principal); J18.9 Pneumonia, unspecified organism; L03.113 Cellulitis of right upper limb; I69.354 Hemiplegia and hemiparesis following cerebral infarction affecting left non-dominant side; I11.0 Hypertensive heart disease with heart failure; I50.9 Heart failure, unspecified; J44.9 Chronic obstructive pulmonary disease, unspecified; E03.9 Hypothyroidism, unspecified; E78.5 Hyperlipidemia, unspecified; G40.909 Epilepsy, unspecified, not intractable, without status epilepticus; F41.9 Anxiety disorder, unspecified; F32.A Depression, unspecified; F25.9 Schizoaffective disorder, unspecified; Z20.822 Contact with and (suspected) exposure to COVID-19; Z79.82 Long term (current) use of aspirin
CPT/HCPCS: 36415; 70450; 71045; 80048; 80053; 81001; 82948; 83735; 84145; 85025; 85610; 85730; 87040; 87086; 87186; 87637; 87641; 93005; 94640; 96365; 96367; 99285; A9270; G0378; J0456; J0696; J3373; J7050